=== PATIENT | male | born 1955 | race Caucasian/White ===

== ENCOUNTER 2016-12-24 14:19 | Emergency (ER) | payer BC, OTHER ==
[~2016-12-24] VITALS: Ht 182.9 cm; Wt 65.4 kg
[~2016-12-24 14:19] MED LIST: ASPEC81 PO; CLOP1TAB5 PO
[2016-12-24 14:22] VITALS: BP 165/98; TEMP 36.3; Ht 182.9 cm; Wt 65.4 kg
[2016-12-24] MEDS ORDERED: ASPI-435 PO (14:44)
[2016-12-24] MEDS ORDERED: HYDROCODONE/ACETAMOPHEN 5/325MG TAB PO STA (15:12)
[2016-12-24] MEDS ORDERED: CYCLOBENZAPRINE HCL 10 MG TAB PO STA (15:12)
[2016-12-24] MEDS ORDERED: CYCL10TA6 PO (15:15)
[2016-12-24] MEDS ORDERED: HYDR-5688 PO (15:15)
--- NOTE | 2016-12-24 15:18 | EMERGENCY ROOM VISIT NOTE ---
History First contact with patient: 14:44 Chief Complaint: SHOULDER PAIN Stated Complaint: RIGHT SHOULDER PAIN History of Present Illness The patient is a 61 year old male who presents to the Emergency Room via private vehicle with complaints of "right shoulder pain". The patient states that Friday he was walking his dog, and there was a leash/cable attached to the dog which she was holding in his head. The dog jerked forward, causing a pulling sensation in the right shoulder/trapezius region. He notes sharp pain at that point when his arm was pulled, but is progressively worsened. He rates the pain as an 8/10 and sharp in nature. This is worse with flexion and abduction of the right shoulder. He rates his pain as a 6/10. He denies any chest pain, shortness of breath. Review of Systems A complete 6-point Review of Systems was discussed with the patient, with pertinent positives and negatives listed in the History of Present Illness. All remaining Review of Systems questions can be considered negative unless otherwise specified. Past Medical/Surgical History Medical Problems: (1) Acute myocardial infarction (2) arterial stent placement (3) Back strain Family History Cancer Heart disease Hypertension Lung disease Social History Smoking Status: Current Every Day Smoker Marital Status: single Housing Status: unknown Occupation Status: employed Current/Historical Medications Scheduled Aspirin (Aspirin 81), 81 MG PO DAILY Clopidogrel Bisulfate (Plavix), 75 MG PO DAILY Cyclobenzaprine Hcl (Flexeril), 10 MG PO TID Scheduled PRN Hydrocodone/Acetaminophen 5MG/325MG ([place] 5MG/325MG), 1 TABLET PO Q4H PRN for Pain Allergies Coded Allergies: No Known Allergies (Unverified , 12/24/16) Physical Exam Vital Signs Date Time Temp Pulse Resp B/P Pulse Ox O2 Delivery O2 Flow Rate FiO2 12/24/16 15:35 77 18 98 12/24/16 14:22 36.3 75 18 165/98 99 Room Air Physical Exam VITAL SIGNS - Vital signs and nursing notes were reviewed. Afebrile, hypertensive at 165/98, non-tachycardic and is saturating well on room air 99%. GENERAL -61-year-old male appearing his stated age who is in no acute distress. Communicates well with provider and answers questions appropriately. SKIN - Without rashes. No petechial rashes. HEAD - NC/AT. NECK: There is tenderness to palpation overlying the right superior trapezius muscle extending towards the right shoulder. There is no bony tenderness or C- spine tenderness. CARDIAC - RRR with S1/S2. No murmur, rubs, or gallops appreciated. Lungs: CTA bilaterally. EXTREMITIES - No clubbing or peripheral cyanosis. No pretibial edema present. He is neurovascularly intact in the right upper extremity. +5/5 strength noted in UE/LE bilaterally. There is tenderness to palpation overlying the superior trapezius muscle, and with rage of motion of the right shoulder. With the patient pressing the right hand out in front of his chest against my resistance there is increased tenderness in the right superior trapezius muscle. Medical Decision & Procedures Medications Administered Medications (Trade) Dose Ordered Sig/Tres Route Start Time Stop Time Status Last Admin Dose Admin Cyclobenzaprine HCl (Flexeril Tab) 10 mg NOW STAT PO 12/24/16 15:12 12/24/16 15:14 DC 12/24/16 15:30 10 MG Acetaminophen/ Hydrocodone Bitart ([place] 5/325 Tab) 1 tab NOW STAT PO 12/24/16 15:12 12/24/16 15:14 DC 12/24/16 15:30 1 TAB Medical Decision Patient was seen and evaluated as above. After obtaining a thorough history and physical examination it was apparent that the patient was experiencing a muscle strain of the superior trapezius. It is worse with movement, and tender to palpation. There is no chest pain or shortness of breath. I do not suspect any cardiac or pulmonary causes of this pain today. He was educated upon management, was given Flexeril and [place] for his pain. He was educated upon worrisome symptoms which to return, had questions prior to discharge, and was discharged home in good condition. He is to follow up regarding today's visit with his family doctor, and notes he does not have one therefore I instructed him to call the number on the back of his insurance card first thing tomorrow morning to schedule follow-up. He indicated he felt comfortable doing so. In the evaluation treatment this patient following differential diagnoses were entertained: Muscle strain, spasm, CT, PE, among others. [place] Drug Monitoring Program Search Results: patient reviewed within database, no issues identified Impression Primary Impression: Trapezius muscle strain Departure Information Dispostion Home / Self-Care Condition GOOD Prescriptions Cyclobenzaprine Hcl (FLEXERIL) 10 Mg Tab 10 MG PO TID, #10 TAB Prov: Quinton Butcher PA-C 12/24/16 Hydrocodone/Acetaminophen 5MG/325MG ([place] 5MG/325MG) Tab 1 TABLET PO Q4H Y for Pain, #15 TAB For Initial Treatment Prov: Quinton Butcher PA-C 12/24/16 Referrals No Doctor, Assigned (PCP) Patient Instructions My [facility] [address] Additional Instructions You have been treated in the Emergency Department for right neck/shoulder pain. You have received pain medicine in the emergency department which impairs your ability to operate a vehicle. It is illegal for you to drive after receiving these medicines. You have been prescribed [place] to be used for pain control. This is a narcotic medication. You cannot drive or consume alcohol while on this medicine. This medicine should only be used for pain that cannot be controlled with over-the- counter pain medicines. DO NOT TAKE WITH TYLENOL!! Do not consume alcohol with this medication. You have been prescribed Flexeril (cyclobenzaprine) 1 tabs orally, three times per day. Do NOT exceed 30 mg (6 tabs) per day. Take your first dose at bedtime as it can make you drowsy. Always take all medications as prescribed. Do not take alcohol with this medication. For pain control, you can use the following atmy-oyd-dtzyptj medicines (if >12 yo): - Regular strength (325mg/tab) Tylenol (acetaminophen) 2 tabs every 4-6 hours as needed. Do not exceed 12 tablets in a 24 hour period. Avoid taking more than 3 grams (3000 mg) of Tylenol per day. This includes any other sources of acetaminophen you may take on a regular basis. Do not take this with [place]. - Regular strength (200 mg/tab) Advil (ibuprofen) 1-2 tabs every 4-6 hours as needed. Do not exceed a dose of 3200 mg per day. If this is a recent injury (<24 hrs), ice can be applied to the area of pain for the first 3 days to help decrease pain and inflammation. As we discussed please call the number on the back of your insurance card first thing tomorrow morning to identify family doctors in the area. Please schedule appointment as soon as possible. If she experienced difficulty with this please call the emergency department piano case and bench assembler at [phone]. Thank you Return to the Emergency Department if your current symptoms worsen despite treatment course outlined above, or if you develop any of the following symptoms : intractable pain despite aforementioned treatment course or new onset of numbness or tingling of the arm. Please return to the emergency department with any new/concerning symptoms.
[2016-12-24 15:35] VITALS: PULSE 77; O2SAT 98
== END 2016-12-24 15:38 | disposition home or self-care (01) ==
LOC: C.EDB 14:21 → C.EDD 15:38
DX: S46.811A Strain of other muscles, fascia and tendons at shoulder and upper arm level, right arm, initial encounter (principal); X50.9XXA Other and unspecified overexertion or strenuous movements or postures, initial encounter; I21.3 ST elevation (STEMI) myocardial infarction of unspecified site; Z82.49 Family history of ischemic heart disease and other diseases of the circulatory system; F17.200 Nicotine dependence, unspecified, uncomplicated; Z79.82 Long term (current) use of aspirin

== ENCOUNTER 2017-01-07 21:29 | Emergency (ER) | payer BC ==
[~2017-01-07] VITALS: Ht 185.4 cm; Wt 63.4 kg
[~2017-01-07 21:29] MED LIST changes: -ASPEC81 PO; +ASPI-435 PO; +HYDR-5688 PO
[2017-01-07 21:32] VITALS: Ht 185.4 cm; Wt 63.4 kg
[2017-01-07] MEDS ORDERED: FLEXERIL HOME PACK 10 MG VIAL PO ONE (22:45)
[2017-01-07] MEDS ORDERED: TRAMADOL HCL 50 MG HOME PACK PO ONE (22:45)
[2017-01-07] MEDS ORDERED: PRED50TA PO (22:53)
[2017-01-07] MEDS ORDERED: TRAM-10 PO (22:53)
[2017-01-07] MEDS ORDERED: CYCL10TA6 PO (22:53)
--- NOTE | 2017-01-07 22:53 | EMERGENCY ROOM VISIT NOTE ---
ED Visit Note First contact with patient: 21:40 Chief Complaint: RIGHT Shoulder/Neck Pain History of Present Illness: Patient is a 61-year-old male who presents to the emergency Department for evaluation of his RIGHT shoulder and neck pain. He reports he was seen in this facility for similar symptoms several days ago. He reports feeling much better and complete resolve of symptoms with the medications he was provided. He had been doing well until he attempted to sleep on his Left Side Last Evening. He Awoke with Pain to the Base of the RIGHT-Sided Neck and Shoulder. He Denies Any Trauma to the Area. He Denies Any Numbness or Tingling into the Distal Extremity. He Denies Any Headaches, Dizziness, Lightheadedness, Chest Pain, Palpitations, Pleuritic Pain, Nausea, or Vomiting. He Rates His Current Discomfort As an 8/10. He Is Tried Nothing Xupw-Jlv-Rvzqsix for Symptoms. Medications: Reviewed and discussed with the patient. Allergies: No known allergies. PMH: No pertinent past medical history. SHx: Patient is a 61-year-old male who lives locally. ROS: All pertinent positive and negative review of systems are appropriately documented in the History of Present Illness. Physical Exam: VITAL SIGNS - Vital signs and nursing notes were reviewed. GENERAL - 61-year-old male appearing his stated age and in noticeable discomfort throughout the exam. NECK - FROM of the cervical spine. No spinous process or paraspinal muscle tenderness to palpation. No nuchal rigidity. LUNGS - Chest wall symmetric without accessory muscle use, intercostals retractions, or central cyanosis. Normal vesicular breath sounds CTA B/L. No wheezes, rales, or rhonchi appreciated. CARDIAC - RRR with S1/S2. No murmur, rubs, or gallops appreciated. MUSCULOSKELETAL - decreased active range of motion of the RIGHT shoulder second or to discomfort. Palpable muscle spasm and reproduce will pay noted to the superior portion of the RIGHT trapezius muscle. +/5 intelligence group supervisor strength appreciated bilaterally. NEUROLOGIC - SENSORY: Spinothalamic tract was found to be intact with ability to discriminate sharp versus dull sensation at the level of the RIGHT side of the neck down to the fingertips. No sensory deficits of the dorsal column were appreciated utilizing light touch for evaluation. VASCULAR - Capillary refill was brisk. +3/5 radial pulse palpated. ED Course: Patient was seen and evaluated by myself. Previous emergency department visit notes were reviewed. Patient was educated on fkpd-osq-tmpcjdu medications as well as follow closely with his primary care provider from today's visit. He was provided a home pack for Flexeril and Ultram. He was provided initial dose of prednisone in the emergency department. The patient was encouraged to follow -up with his primary care provider. He was educated on worrisome symptoms for return visit to the emergency department. Patient discharged home in good condition. In the evaluation and treatment of this patient, the following differential diagnoses were considered: Musculoskeletal Strain, Discitis, Cervical Spine Fracture, Cervical Spine Dislocation, Cervical Spine Subluxation, Cervical Spondylosis, Fibromyalgia, Osteoarthritis, Polymyalgia Rheumatica, Psychogenic Pain Disorder, Tumor of Soft Tissue or Spine. Impression: RIGHT Shoulder/Neck Pain - Superior Trapezius Muscle Strain Discharge Instructions: You have been seen in the emergency department today for your neck pain. You have been prescribed Ultram to be used for pain control. You cannot drive or consume alcohol while on this medicine. This medicine should only be used for pain that cannot be controlled with xlwj-kwe-ybosjsj pain medicines. You have been prescribed Flexeril (cyclobenzaprine) 1-2 tabs orally, three times per day. Do NOT exceed 30 mg (6 tabs) per day. Take your first dose at bedtime as it can make you drowsy. Always take all medications as prescribed. You have been prescribed Prednisone 50 mg to be taken orally once a day for the next 4 days. This is an anti-inflammatory medicine to be used to help minimize your symptoms. You should take the COMPLETE course of the medication. For pain control, you can use the following inyv-zqt-foofrvi medicines (if >12 yo): - Regular strength (325mg/tab) Tylenol (acetaminophen) 2 tabs every 4-6 hours as needed. Do not exceed 12 tablets in a 24 hour period. Avoid taking more than 4 grams (4000 mg) of Tylenol per day. This includes any other sources of acetaminophen you may take on a regular basis. - Regular strength (200 mg/tab) Advil (ibuprofen) 1-2 tabs every 4-6 hours as needed. Do not exceed a dose of 3200 mg per day. Follow-up with your primary care provider from today's visit. Return for any changing or worsening symptoms. Problem List Medical Problems: (1) Acute myocardial infarction Status: Resolved (2) arterial stent placement Status: Resolved (3) Back strain Status: Resolved Current/Historical Medications Scheduled Aspirin (Aspirin 81), 81 MG PO DAILY Clopidogrel Bisulfate (Plavix), 75 MG PO DAILY Cyclobenzaprine Hcl (Flexeril), 10 MG PO TID Prednisone (Prednisone), 50 MG PO DAILY Scheduled PRN Tramadol (Ultram), 1-2 TAB PO Q4H PRN for Pain Allergies Coded Allergies: No Known Allergies (Unverified , 01/07/17) Vital Signs Date Time Temp Pulse Resp B/P Pulse Ox O2 Delivery O2 Flow Rate FiO2 01/07/17 23:01 68 16 109/86 100 01/07/17 21:32 79 19 103/67 97 Medications Administered Medications (Trade) Dose Ordered Sig/Tres Route Start Time Stop Time Status Last Admin Dose Admin Cyclobenzaprine HCl (FLEXERIL 10MG Home Pack) 1 homepack UD ONCE PO 01/07/17 22:45 01/07/17 22:46 DC 01/07/17 22:58 1 HOMEPACK Tramadol HCl (Ultram Home Pack) 1 homepack UD ONCE PO 01/07/17 22:45 01/07/17 22:46 DC 01/07/17 22:58 1 HOMEPACK Prednisone (PredniSONE TAB) 60 mg NOW STAT PO 01/07/17 22:34 01/07/17 22:36 DC 01/07/17 22:57 60 MG Departure Information Impression Primary Impression: Trapezius muscle strain Dispostion Home / Self-Care Condition GOOD Prescriptions Prednisone (Prednisone) 50 Mg Tab 50 MG PO DAILY for 4 Days, #4 TAB Prov: Drew Beatty PA-C 01/07/17 Cyclobenzaprine Hcl (FLEXERIL) 10 Mg Tab 10 MG PO TID for 5 Days, #15 TAB Prov: Drew Beatty PA-C 01/07/17 Tramadol (Ultram) 50 Mg Tab 1-2 TAB PO Q4H Y for Pain, #14 TAB For Initial Treatment Prov: Drew Beatty PA-C 01/07/17 Referrals No Doctor, Assigned (PCP) Patient Instructions My [facility] Additional Instructions You have been seen in the emergency department today for your neck pain. You have been prescribed Ultram to be used for pain control. You cannot drive or consume alcohol while on this medicine. This medicine should only be used for pain that cannot be controlled with viow-ans-bjwaluw pain medicines. You have been prescribed Flexeril (cyclobenzaprine) 1-2 tabs orally, three times per day. Do NOT exceed 30 mg (6 tabs) per day. Take your first dose at bedtime as it can make you drowsy. Always take all medications as prescribed. You have been prescribed Prednisone 50 mg to be taken orally once a day for the next 4 days. This is an anti-inflammatory medicine to be used to help minimize your symptoms. You should take the COMPLETE course of the medication. For pain control, you can use the following nsoq-mlp-hnjhcod medicines (if >12 yo): - Regular strength (325mg/tab) Tylenol (acetaminophen) 2 tabs every 4-6 hours as needed. Do not exceed 12 tablets in a 24 hour period. Avoid taking more than 4 grams (4000 mg) of Tylenol per day. This includes any other sources of acetaminophen you may take on a regular basis. - Regular strength (200 mg/tab) Advil (ibuprofen) 1-2 tabs every 4-6 hours as needed. Do not exceed a dose of 3200 mg per day. Follow-up with your primary care provider from today's visit. Return for any changing or worsening symptoms. Problem Qualifiers Primary Impression: Trapezius muscle strain Encounter type: initial encounter Laterality: right Qualified Codes: S46.811A - Strain of other muscles, fascia and tendons at shoulder and upper arm level, right arm, initial encounter
[2017-01-07 23:01] VITALS: BP 109/86; PULSE 68; O2SAT 100
== END 2017-01-07 23:02 | disposition home or self-care (01) ==
LOC: C.EDB 21:29 → C.EDD 23:02
DX: S46.811A Strain of other muscles, fascia and tendons at shoulder and upper arm level, right arm, initial encounter (principal); X58.XXXA Exposure to other specified factors, initial encounter; I25.2 Old myocardial infarction; Z79.82 Long term (current) use of aspirin

== ENCOUNTER → 2017-04-30 | Outpatient (CLI) | payer BC ==
[~2017-04-30] MED LIST changes: -HYDR-5688 PO; +TRAM-10 PO
[2017-04-30 12:39] LABS: BLOOD UREA NITROGEN 35 mg/dl (7-18); BUN/CREATININE RATIO 18.6 (10-20)
== END | disposition home or self-care (01) ==
LOC: C.LAB 10:58
PROVIDERS: ATTEND Surgery Vascular Surgery
DX: I73.9 Peripheral vascular disease, unspecified (principal)

== ENCOUNTER 2019-02-02 23:51 | Inpatient (IN) ==
--- OUTSIDE RECORDS SUMMARY | 2019-02-02 23:54 | External Medical Summary | Continuity of Care Document ---
:1955 Author Name Uriel Spencer Address Unavailable Unavailable , Care Team Providers Name Role Phone Pulmonary Function Unavailable [email or web address] PCP, UNKNOWN Unavailable Unavailable Problems Active medical history not documented Allergies and Adverse Reactions Allergy history not documented Medications Medications not documented Procedures Procedures not documented Immunizations Immunizations not documented Plan of Treatment Planned Observations Planned Goals not documented Results No Known Results Results not documented Encounters Appointment; Pulmonary Function, Testing [facility] [place] 17-Aug-2009 14:4 5 Encounter Diagnosis: Problem not documented
[2019-02-03] MEDS ORDERED: MAGNESIUM SULFATE / D5W 1 GM/100 ML BAG IV ONE (00:14)
[2019-02-03] MEDS ORDERED: SODIUM CHLORIDE 0.9% 1000ML 1,000 ML IV ONE (00:14)
[2019-02-03] MEDS ORDERED: ALBUT/IPRATROP 3MG/0.5MG NEB 3 ML VIAL NEB ONE ×2 (00:14→02:08)
[2019-02-03] MEDS ORDERED: methylPREDNISolone 80 MG in SYRINGE 0 ML IV STA (00:14)
[2019-02-03 00:55] LABS: Basophils # (auto) 0.01 K/uL (0-0.2); Basophils % (auto) 0.1 %; Hematocrit (blood only) 42.6 % (42-52); Hemoglobin 13.9 g/dL (14.0-18.0); Immature Granulocytes # (auto) 0.02 K/uL (0.00-0.02); Immature Granulocytes % (auto) 0.2 %; Lymphocytes # (auto) 1.02 K/uL (1.2-3.4); Lymphocytes % (auto) 10.4 %; Mean Corpuscular Hgb Conc 32.6 g/dL (32-36); Mean Corpuscular Volume 95.7 fL (80-100); Mean Platelet Volume 9.2 fL (7.4-10.4); Monocytes # (auto) 0.74 K/uL (0.11-0.59); Monocytes % (auto) 7.5 %; Neutrophils # (auto) 7.76 K/uL (1.4-6.5); Neutrophils % (auto) 78.8 %; Platelet Count 175 K/uL (130-400); RDW Coefficient of Variation 15.4 % (11.5-14.5); RDW Standard Deviation 54.1 fL (36.4-46.3); Red Blood Count 4.45 M/uL (4.7-6.1); White Blood Count 9.85 K/uL (4.8-10.8)
[2019-02-03 01:14] LABS: Alanine Aminotransferase 15 U/L (12-78); Albumin Level 3.5 gm/dl (3.4-5.0); Aspartate Aminotransferase 12 U/L (15-37); BUN Creatinine Ratio 16.2 (10-20); Blood Urea Nitrogen 39 mg/dl (7-18); Calcium 8.6 mg/dl (8.5-10.1); Carbon Dioxide 27 mmol/L (21-32); Chloride 110 mmol/L (98-107); Creatinine Clr Calc Pharmacy 28.7 ml/min; Est GFR (African American) 31.8; Est GFR (Non-African American) 27.5; Glucose 81 mg/dl (70-99); Potassium 5.1 mmol/L (3.5-5.1); Sodium 140 mmol/L (136-145)
[2019-02-03 01:19] LABS: Albumin Globulin Ratio 0.9 (0.9-2); Alkaline Phosphatase 112 U/L (45-117); Bilirubin,Total 0.4 mg/dl (0.2-1); Globulin 3.9 gm/dl (2.5-4.0); NT Pro B Type Natriuretic Pept 16198 pg/ml (0-900); Total Protein 7.4 gm/dl (6.4-8.2); Troponin I < 0.015 ng/ml (0-0.045)
[2019-02-03] MEDS ORDERED: HydrALAZINE HCL 20 MG/ML VIAL IV STA ×2 (01:27→15:31)
[2019-02-03] MEDS ORDERED: LEVOFLOXACIN/D5W 750 MG/150 ML BAG IV STA (01:31)
--- NOTE | 2019-02-03 04:34 | Emergency Department Note ---
Entered by Marlon Stubbs acting as a scribe for Rosi Piña DO History of Present Illness General Chief complaint: Respiratory Problems Stated complaint: TROUBLE BREATHING Time Seen by Provider: 02/03/19 00:09 Source: patient History of Present Illness Onset (ago): day(s) (yesterday) Location: chest Severity: similar to prior episodes Pain Consistency: + constant Quality: + other (respiratory difficulty) Associated symptoms: + other (Positive for chest congestion. Negative for cough and fever.) The patient is a 63 year old male who presents to the emergency department with complaints of constant respiratory difficulty beginning yesterday. The patient states that his chest feels congested, but he notes that he has not had a cough. He also denies any fever. He notes that he has a history of pneumonia and reports that his current symptoms feel similar. The patient states that he also has a history of COPD. He notes that he does not use an inhaler and he reports that he is a current smoker. Patient states he has previously been admitted to the hospital when he had pneumonia, no other admissions for COPD exacerbation. No prior intubations. Patient does not follow with a functional support analyst. Denies any recent travel or change in activity. States his appetite has been decreased today secondary to not feeling well. Patient states he is coughing more frequently but is not producing any increased sputum. Patient states subjective fevers and chills. 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 and A total of 10 systems reviewed and were otherwise negative Physical Exam Vital Signs Vital Signs - 24 hr 02/03/19 02:15 02/03/19 02:24 02/03/19 03:00 Pulse Rate 113 H Pulse Rate [Right Finger] 104 H 105 H Pulse Rate from SpO2 Sensor 114 H Respiratory Rate 20 15 Respiratory Effort / Characteristics Spontaneous Short of Breath SOB on Exertion Blood Pressure 156/88 H Blood Pressure [Right Arm] 174/107 H Blood Pressure Mean 110 Blood Pressure Mean [Right Arm] 129 Pulse Oximetry 93 92 100 Oxygen Delivery Method Room Air Room Air 02/03/19 03:15 02/03/19 03:30 02/03/19 03:31 Pulse Rate 120 H Pulse Rate [Right Finger] Pulse Rate from SpO2 Sensor 122 H 118 H 116 H Respiratory Rate 22 20 15 Respiratory Effort / Characteristics Blood Pressure 155/103 H 148/97 H Blood Pressure [Right Arm] Blood Pressure Mean 120 114 Blood Pressure Mean [Right Arm] Pulse Oximetry 100 99 100 Oxygen Delivery Method 02/03/19 03:45 02/03/19 04:00 02/03/19 04:01 Pulse Rate Pulse Rate [Right Finger] Pulse Rate from SpO2 Sensor 121 H 118 H 119 H Respiratory Rate 23 18 21 Respiratory Effort / Characteristics Blood Pressure 143/97 H 158/96 H Blood Pressure [Right Arm] Blood Pressure Mean 112 116 Blood Pressure Mean [Right Arm] Pulse Oximetry 96 94 94 Oxygen Delivery Method 02/03/19 04:15 Pulse Rate Pulse Rate [Right Finger] Pulse Rate from SpO2 Sensor 114 H Respiratory Rate 17 Respiratory Effort / Characteristics Blood Pressure 129/92 Blood Pressure [Right Arm] Blood Pressure Mean 104 Blood Pressure Mean [Right Arm] Pulse Oximetry 92 Oxygen Delivery Method GENERAL: alert, well appearing, well nourished, no distress, non-toxic EYE EXAM: normal conjunctiva, PERRL and EOM's grossly intact OROPHARYNX: no exudate, no erythema, lips, buccal mucosa, and tongue normal and mucous membranes are dry, poor dentition. NECK: supple, no nuchal rigidity, no adenopathy, non-tender LUNGS: Supraclavicular retractions, bilateral wheezing, increased work of breathing. HEART: no murmurs, S1 normal and S2 normal ABDOMEN: abdomen soft, non-tender, normo-active bowel sounds, no masses, no rebound or guarding. BACK: Back is symmetrical on inspection and there is no deformity, no midline tenderness, no CVA tenderness. SKIN: no rashes and no bruising UPPER EXTREMITIES: upper extremities are grossly normal. FROM, nml pulses b/l. LOWER EXTREMITIES: No pitting edema. FROM, nml pulses b/l. NEURO EXAM: Normal sensorium, cranial nerves II-XII grossly intact, normal speech, no gross weakness of arms, no gross weakness of legs. Course 0012: The patient was evaluated in room A11. A complete history and physical exam was performed. 0202: I reevaluated and updated the patient. He states that he feels better. He still has significant bilateral expiratory wheezing. His pulse oxygen is 92%. 0322: I rechecked the patient. He is still wheezing bilaterally. He states that he is feeling better. 0411: Patient still with bilateral wheezing after 2 continuous hour-long nebulizer treatments. Patient with decreased work of breathing, and states he does feel mildly improved. Patient states he is tired, and I did discuss with him possible use of BiPAP. Patient states he would like to hold off at this time as he does feel some improvement following the nebulizer treatments. Patient denies ever being informed he had any kidney problems. 0433: Upon reevaluation, the patient is stable. I discussed the findings and the treatment plan with the patient. He expresses agreement and understanding. I spoke with Dr. Harrison of the [facility]. The patient will be evaluated for further management. He would also like CT chest added. Consultations Consultation #1: I reviewed the patient's case with Dr. Harrison - Hospitalist, [facility]. He will evaluate the patient for further management. Administered Medications Albuterol (Duoneb) 3 ml NEB QIDR JOVANY Stop: 03/05/19 07:59 Last Admin: 02/03/19 19:44 Dose: 3 ml Documented by: [id number] Admin: 02/03/19 15:19 Dose: 3 ml Documented by: [id number] Admin: 02/03/19 11:05 Dose: 3 ml Documented by: [id number] Admin: 02/03/19 07:19 Dose: 3 ml Documented by: [id number] Aspirin (Ecotrin Ectab) 81 mg PO DAILY [facility] Stop: 03/05/19 08:59 Last Admin: 02/03/19 08:38 Dose: 81 mg Documented by: [id number] Clopidogrel Bisulfate (Plavix) 75 mg PO DAILY [facility] Stop: 03/05/19 08:59 Last Admin: 02/03/19 08:38 Dose: 75 mg Documented by: [id number] Heparin Sodium (Porcine) (Heparin Sodium (Porcine)) 5,000 units SQ Q8 JOVANY Stop: 03/05/19 13:59 Last Admin: 02/03/19 20:57 Dose: 5,000 units Documented by: [id number] Cosigned by: [id number] Admin: 02/03/19 13:18 Dose: 5,000 units Documented by: [id number] Cosigned by: [id number] Methylprednisolone 60 mg/ (Syringe) 0.96 mls @ 1.5 mls/min IV Q6H JOVANY Stop: 03/05/19 07:59 Last Admin: 02/04/19 01:39 Dose: 1.5 mls/min Documented by: [id number] Admin: 02/03/19 20:57 Dose: 1.5 mls/min Documented by: [id number] Admin: 02/03/19 13:18 Dose: 1.5 mls/min Documented by: [id number] Admin: 02/03/19 08:38 Dose: 1.5 mls/min Documented by: [id number] Discontinued Medications Albuterol (Duoneb) 12 ml NEB ONE ONE Stop: 02/03/19 00:15 Last Admin: 02/03/19 00:32 Dose: 12 ml Documented by: [id number] Albuterol (Duoneb) 12 ml NEB ONE ONE Stop: 02/03/19 02:09 Last Admin: 02/03/19 02:24 Dose: 12 ml Documented by: [id number] Amlodipine Besylate (Norvasc) 5 mg PO NOW ONE Stop: 02/03/19 15:34 Last Admin: 02/03/19 16:05 Dose: 5 mg Documented by: [id number] Hydralazine HCl (Hydralazine Hcl) 10 mg IV NOW STA Stop: 02/03/19 01:28 Last Admin: 02/03/19 01:32 Dose: 10 mg Documented by: [id number] Hydralazine HCl (Hydralazine Hcl) 10 mg IV NOW STA Stop: 02/03/19 15:32 Last Admin: 02/03/19 16:05 Dose: 10 mg Documented by: [id number] Magnesium Sulfate/Dextrose (Magnesium Sulfate / D5w) 1 gm in 100 mls @ 100 mls/hr IV ONE ONE Stop: 02/03/19 01:13 Last Infusion: 02/03/19 01:47 Dose: 0 mls/hr Documented by: [id number] Admin: 02/03/19 00:36 Dose: 100 mls/hr Documented by: [id number] Methylprednisolone 80 mg/ (Syringe) 1.28 mls @ 1.5 mls/min IV NOW STA Stop: 02/03/19 00:15 Last Admin: 02/03/19 00:36 Dose: Not Given Documented by: [id number] Sodium Chloride (Nss 1000ml) 1,000 mls @ 999 mls/hr IV .Q1H1M ONE Stop: 02/03/19 01:14 Last Infusion: 02/03/19 01:35 Dose: 0 mls/hr Documented by: [id number] Admin: 02/03/19 00:36 Dose: 999 mls/hr Documented by: [id number] Levofloxacin/Dextrose (Levaquin/D5w) 750 mg in 150 mls @ 100 mls/hr IV NOW STA Stop: 02/03/19 03:00 Last Infusion: 02/03/19 03:16 Dose: 0 mls/hr Documented by: [id number] Admin: 02/03/19 01:47 Dose: 100 mls/hr Documented by: [id number] Dextrose/Sodium Chloride (D5w And Nss) 1,000 mls @ 125 mls/hr IV .Q8H JOVANY Stop: 02/03/19 23:29 Last Infusion: 02/04/19 00:55 Dose: 0 mls/hr Documented by: [id number] Admin: 02/03/19 16:07 Dose: 125 mls/hr Documented by: [id number] Infusion: 02/03/19 16:07 Dose: 125 mls/hr Documented by: [id number] Admin: 02/03/19 08:21 Dose: 125 mls/hr Documented by: [id number] Methylprednisolone (Solumedrol) Confirm Administered Dose 80 mg .ROUTE .STK-MED ONE Stop: 02/03/19 00:33 Last Admin: 02/03/19 00:36 Dose: 80 mg Documented by: [id number] Medical Decision Making Differential Diagnosis Differential diagnosis: Etiologies such as infections, reactive airway disease, COPD, pneumonia, pleural effusion, pulmonary edema, ARDS, pneumothorax, CHF, cardiac ischemia, cardiac tamponade, dysrhythmia, anemia, pulmonary embolism, musculoskeletal, gastrointestinal process, as well as others were entertained. Medical Records Attestation: I reviewed the patient's medical records. Home Medications Current Medication List: was personally reviewed by me Laboratory Data Attestation: I reviewed the patient's lab results. Result diagrams: 02/03/19 00:08 02/03/19 00:08 Lab Results 02/03/19 02/03/19 Range/Units 00:08 00:08 WBC 9.85 (4.8-10.8) K/uL RBC 4.45 L (4.7-6.1) M/uL Hgb 13.9 L (14.0-18.0) g/dL Hct 42.6 (42-52) % MCV 95.7 (80-100) fL MCH 31.2 (25-34) pg MCHC 32.6 (32-36) g/dL RDW Std Deviation 54.1 H (36.4-46.3) fL RDW Coeff of Contreras 15.4 H (11.5-14.5) % Plt Count 175 (130-400) K/uL MPV 9.2 (7.4-10.4) fL Immature Gran % (Auto) 0.2 % Neut % (Auto) 78.8 % Lymph % (Auto) 10.4 % [place] % (Auto) 7.5 % Eos % (Auto) 3.0 % Baso % (Auto) 0.1 % Immature Gran # (Auto) 0.02 (0.00-0.02) K/uL Neut # (Auto) 7.76 H (1.4-6.5) K/uL Lymph # (Auto) 1.02 L (1.2-3.4) K/uL [place] # (Auto) 0.74 H (0.11-0.59) K/uL Eos # (Auto) 0.30 (0-0.5) K/uL Baso # (Auto) 0.01 (0-0.2) K/uL Sodium 140 (136-145) mmol/L Potassium 5.1 (3.5-5.1) mmol/L Chloride 110 H (98-107) mmol/L Carbon Dioxide 27 (21-32) mmol/L Anion Gap 3.0 (3-11) BUN 39 H (7-18) mg/dl Creatinine 2.40 H (0.6-1.4) mg/dl Est Cr Clr Drug Dosing 28.7 ml/min Est GFR ( Amer) 31.8 Est GFR (Non-Af Amer) 27.5 BUN/Creatinine Ratio 16.2 (10-20) Glucose 81 (70-99) mg/dl Calcium 8.6 (8.5-10.1) mg/dl Magnesium 2.0 (1.8-2.4) mg/dl Total Bilirubin 0.4 (0.2-1) mg/dl AST 12 L (15-37) U/L ALT 15 (12-78) U/L Alkaline Phosphatase 112 (45-117) U/L Troponin I < 0.015 (0-0.045) ng/ml NT-Pro-B Natriuret Pep 68274 H (0-900) pg/ml Total Protein 7.4 (6.4-8.2) gm/dl Albumin 3.5 (3.4-5.0) gm/dl Globulin 3.9 (2.5-4.0) gm/dl Albumin/Globulin Ratio 0.9 (0.9-2) Imaging Data Attestation: I personally reviewed and interpreted this imaging study as follows: My Impression: SINGLE VIEW CHEST X-RAY: Hyperinflated. No cardiomegaly. No pleural effusions. No acute pulmonary edema. Increased interstitial markings at the left base. ECG Data Attestation: I personally reviewed and interpreted this ECG as follows: Indication: SOB/dyspnea Rate (beats per minute): 84 Rhythm: sinus rhythm Findings: no PAC, no PVC and no acute ischemic change Additional Comments: Normal axis, normal intervals. Blood Pressure Blood Pressure Findings: Elevated blood pressure Blood Pressure Disposition: further management by hospitalist ROBERT Narrative Patient here ill-appearing with increased work of breathing and bilateral wheezing. Patient had 2 continuous nebulizer treatments which resulted in increased air movement and decreased work of breathing, however patient still had bilateral wheezing. Patient not hypoxic. Patient with known history of COPD and not currently being treated as an outpatient. Patient does still smoke. Concern for COPD exacerbation versus early pneumonia on chest x-ray, no evidence of bacteremia/sepsis. Patient's other labs reassuring. I do not suspect acute cardiac pathology. No evidence of congestive heart failure despite elevated BNP. I feel the elevated BNP may be secondary to renal dysfunction as his creatinine is higher than baseline. Patient denies any prior knowledge of chronic kidney disease. Patient started on steroids, IV antibiotics, and was cautiously hydrated. I did discuss all results with patient at bedside and he verbalized understanding. Patient in agreement with plan for additional evaluation and management by the hospitalist. Upon discussion with the hospitalist, they also recommended CT chest for additional information. Impression & Plan Pneumonia, COPD exacerbation, Acute kidney injury Discharge Plan Visit Data *Final* Discharge Date/Time: 02/03/19 05:35 Chief Complaint: Respiratory Problems Stated Complaint: TROUBLE BREATHING ED Provider: Rosi Piña Discharge Problem: Pneumonia, COPD exacerbation, Acute kidney injury Patient Disposition: Admitted As Inpatient Discharge Instructions Interventions: ED Discharge Assessment Last Done: 02/03/19 05:35 Discharge Problem: Pneumonia Qualifiers: Pneumonia type: due to unspecified organism Laterality: left Lung location: lower lobe of lung Qualified Code(s): J18.1 - Lobar pneumonia, unspecified organism The scribe's documentation has been prepared under my direction and personally reviewed by me in its entirety. I confirm that the note above accurately reflects all work, treatment, procedures, and medical decision making performed by me.
--- NOTE | 2019-02-03 05:45 | History & Physical Report ---
Date of Service February 03, 2019 Assessment & Plan (1) COPD exacerbation: 63 y/o M Hx PVD, advanced COPD, medical noncompliance, who continues to smoke cigarettes. Presents with progressive SOB, wheezing and a cough. He denies any fevers or CP. He was hypoxic on arrival to the ER requiring 02 to maintain an adequate saturation. The pt is a poor historian and displays little knowledge or interest in his own medical condition. Initial labs demonstrated worsening renal function. A CXR shows hilar prominence vs R infiltrate. 1) COPD exacerbation - abnormal CXR, possible PNM - the pt is assigned to telemetry - provided with duonebs/albuterol, Solumedrol, antibiotics, 02 protocol. Due to his abnormal CXR and high CA risk, he will proceed to CT scan. The pt does not comply with any related meds. 2) MARY GRACE - likely imposed on CKD III as his last creat on record was 1.9. IVF provided - trend BMP AM 3) PVD - edema of R leg - we will start with a venous doppler. He may need arterial studies, however, this can likely be done in the outpt setting as he does not have clinical ischemia. Cont ASA, Plavix. 4) Smoker - shows absolutely no interest in quitting. Full code - heparin prophylaxis - total time for this admit icnluding review of labs, meds, imaging, records - discussio with pt and ER attending - 36 min Present on Admission?: Yes History of Present Illness Chief Complaint: SOB, cough Primary Care Provider: NO PCP 63 y/o M Hx PVD, advanced COPD, medical noncompliance, who continues to smoke cigarettes. Presents with progressive SOB, wheezing and a cough. He denies any fevers or CP. He was hypoxic on arrival to the ER requiring 02 to maintain an adequate saturation. The pt is a poor historian and displays little knowledge or interest in his own medical condition. Initial labs demonstrated worsening renal function. A CXR shows hilar prominence vs R infiltrate. PMH: 1) PVD - stent in R leg 2) COPD 3) CKD III 4) Continued tobacco abuse Surgical: RLE stent Social: Smokes one pack daily History of ETOH abuse - quit 7 years ago He is noncompliant with some prescribed medications Family: Father owing to lung CA Mother due to an DE Allergies Allergy/AdvReac Type Severity Reaction Status Date / Time No Known Allergies Allergy Unknown Unverified 02/03/19 00:21 Home Medications Home Medications Medication Instructions Recorded Confirmed Type aspirin 81 mg PO DAILY 02/03/19 02/03/19 History clopidogrel 75 mg PO DAILY 02/03/19 02/03/19 History Past Med/Surg History Medical History Back pain (Acute) Claudication (Acute) Leg pain, right (Acute) Pneumonia Family History Other No significant family history Social History Feels Safe at Home: Yes Smoking Status: Current every day smoker Review of Systems Review of Systems: ROS may not be accurate Gen: Denies fevers, night sweats, rigors, fatigue, malaise, weight loss/gain ENT: Denies congestion, throat pain, hearing loss Eyes: Denies acute visual changes CV: Denies CP, palpitations Pulmonary: SOB, cough GI: Denies N/V, diarrhea, constipation Neuro: Denies acute or unilateral weakness, acute gait impairment, headache or acute visual changes Musculoskeletal: Denies joint pain, inflammation Endocrine: Denies polydipsia, polyuria Skin: Denies acute rashes or ulcers Physical Exam Physical Exam: General: AAO x 3, no distress ENT: No erythema or exudates, no thrush Eyes: WILLY, EOMI Head and neck: Normocephalic, atraumatic, No JVD, neck is supple. Chest/heart: Nontender, S1,2, RRR, no murmurs, no gallops Lungs: Poor air movement and wheezing in all lung cavazos. Abdomen: Nontender, nondistended, BS+ Neuro: AAO x 3, speech is clear, no unilateral weakness or loss of sensation, coordination intact Musculoskeletal: No joint inflammation, muscle tenderness, FROM Skin: No acute rashes or ulcers Extremities: No clubbing, cyanosis - edema of L leg only Results & Data Vital Signs (Past 12 Hours) Vital Signs Temp Pulse Pulse Resp BP BP Pulse Ox 02/03/19 05:35 96 H 22 147/90 H 100 02/03/19 04:15 17 129/92 92 02/03/19 04:01 21 94 02/03/19 04:00 18 158/96 H 94 02/03/19 03:45 23 143/97 H 96 02/03/19 03:31 15 100 02/03/19 03:30 20 148/97 H 99 02/03/19 03:15 120 H 22 155/103 H 100 02/03/19 03:00 113 H 15 156/88 H 100 02/03/19 02:24 105 H 20 92 02/03/19 02:15 104 H 174/107 H 93 02/03/19 01:45 105 H 149/96 H 94 02/03/19 01:42 105 H 20 180/102 H 95 02/03/19 01:00 82 202/118 H 02/03/19 00:48 83 22 208/129 H 100 02/03/19 00:33 80 22 94 02/02/19 23:53 97.9 F 91 H 20 139/82 91
[2019-02-03] MEDS ORDERED: ONDANSETRON INJ 2 MG/ML 2 ML VIAL IV PRN (06:07)
[2019-02-03] MEDS ORDERED: ALBUTEROL 0.083% NEBU SOLN 3 ML VIAL NEB PRN (06:07)
[2019-02-03] MEDS ORDERED: ACETAMINOPHEN 325 MG TAB PO PRN (06:07)
--- NOTE | 2019-02-03 06:30 | XRay Report ---
XR chest 1V portable HISTORY: 63 years-old Male sob acute shortness of breath COMPARISON: Chest CT of same day TECHNIQUE: Portable AP view of the chest FINDINGS: Cardiomediastinal and hilar silhouettes are within normal limits. No pneumothorax, pleural effusion o r overt pulmonary edema. Lungs are hyperinflated with advanced emphysema and chronic interstitial coa rsening. No lobar airspace consolidation. 1.4 cm nodular density of the right midlung. Degenerative c hanges of the shoulders and spine. IMPRESSION: 1. No acute process. 2. Emphysema with chronic interstitial coarsening. 3. 1.4 cm nodular density of the right midlung correlates with the spiculated nodule of the superior segment right lower lobe seen on chest CT of same day. The above report was generated using voice recognition software. It may contain grammatical, syntax o r spelling errors. Electronically signed by: Jaguar Jenkins M.D. 02/03/2019 6:29 AM
--- NOTE | 2019-02-03 07:14 | CT Scan Report ---
CT chest wo con CT DOSE: 224.72 mGy.cm HISTORY: Dyspnea sob, copd, ?LLL pneumonia TECHNIQUE: Multiaxial CT images of the chest were performed without contrast. A dose lowering techni que was utilized adhering to the principles of ALARA. COMPARISON: None. FINDINGS: Lungs demonstrate diffuse emphysematous change. Multifocal regions of a pleural-based nodul arity is most prominent at 1.2 cm superior segment right lower lobe. This is best seen transaxial tyree ge 149. Additional foci of atelectatic change considered pleural-based anterior aspect left upper lobe image 157. Additional pleural-based at area of atelectatic change right lower lobe image 187. Moderate peribronchial prominence throughout the mid to lower lung regions bilaterally. Perihilar cys tic changes and emphysematous bases bilaterally. Mid mediastinal precarinal nodes measuring up to 1.2 cm. No significant hilar adenopathy within limit ations of an unenhanced scan. IMPRESSION: 1. Diffuse emphysematous change. 2. Multifocal areas of peripheral atelectatic and or nodular-type change as discussed above. 3. Diffuse moderate peribronchial thickening of the mid to lower lung regions bilaterally. 4. Nodular follow-up should be performed per Fleischner criteria. Please refer to below summary of Fleischner criteria recommendations for follow-up of incidental CT n odules (Jeni Bolden, Guidelines for management of small pulmonary nodules detected on CT scans: A sta tement from the Fleischner Society, Radiology 237: [phone].) SOLID NODULES Solitary nodule size: <6 mm * low risk patients: no follow-up needed * high risk patients: optional CT at 12 months Solitary nodule size: 6-8 mm * low risk patients: follow-up at 6-12 months, then consider further follow-up at 18-24 months * high risk patients: initial follow-up CT at 6-12 months and then at 18-24 months if no change Solitary nodule size: >8 mm * either low or high risk patients - consider follow-up CT at 3 months, and/or CT-PET, and/or biopsy Multiple nodules size: <6 mm * low risk patients: no routine follow-up * high risk patients: optional CT at 12 months Multiple nodules size: 6-8 mm * low risk patients: follow-up at 3-6 months, then consider further follow-up at 18-24 months * high risk patients: follow-up at 3-6 months, then at 18-24 months if no change Multiple nodules size: >8 mm * low risk patients: follow-up at 3-6 months, then consider further follow-up at 18-24 months * high risk patients: follow-up at 3-6 months, then at 18-24 months if no change Note: newly detected indeterminate nodule in persons 35 years of age or older. * low risk patients: minimal or absent history of smoking and/or other known risk factors * high risk patients: history of smoking or of other known risk factors (e.g. first degree relative with lung cancer, or exposure to asbestos, radon, uranium) * if a nodule up to 8 mm is partly solid or is ground glass further follow-up is required after 24 m onths to exclude possible slow growing adenocarcinoma (JAM) SUBSOLID NODULES Solitary pure ground-glass nodule * nodule size <6 mm - no CT follow-up required * nodule size >=6 mm - follow-up CT at 6-12 months, then every 2 years until 5 years Solitary part-solid nodule * nodule size <6 mm - no CT follow-up required * nodule size >=6 mm - follow-up CT at 3-6 months. If unchanged, and solid component remains <6 mm, then annual follow-up for 5 years Multiple subsolid nodules * nodule size <6 mm - follow-up CT at 3-6 months, consider further follow-up at 2 and 4 years if sta ble * nodule size >=6 mm - follow-up CT at 3-6 months, subsequent management based on the most suspiciou s nodule(s) The above report was generated using voice recognition software. It may contain grammatical, syntax or spelling errors. Electronically signed by: Rylan Mendoza M.D. 02/03/2019 7:13 AM
[2019-02-03] MEDS: ALBUT/IPRATROP 3MG/0.5MG NEB 3 ML VIAL NEB SCH ×4 (07:19→19:44)
[2019-02-03 07:58] LABS: INR 1.1 (0.9-1.1); Prothrombin Time 10.9 Seconds (9.0-12.0)
--- NOTE | 2019-02-03 08:12 | Ultrasound Report ---
US venous doppler LE LT CLINICAL HISTORY: dvt PAIN. EDEMA. COMPARISON STUDY: No previous studies for comparison. FINDINGS: Real-time and color flow Doppler imaging were performed. Flow was seen within the femoral, popliteal and calf veins with no intraluminal thrombus demonstrated. The saphenous vein is patent. IMPRESSION: No evidence of deep venous thrombosis. The above report was generated using voice recognition software. It may contain grammatical, syntax or spelling errors. Electronically signed by: Rylan Mendoza M.D. 02/03/2019 8:10 AM
[2019-02-03] MEDS: D5W AND NSS 1,000 ML IV SCH ×2 (08:21→16:07)
[2019-02-03] MEDS: ASPIRIN 81 MG ECTAB PO SCH (08:38)
[2019-02-03] MEDS: CLOPIDOGREL BISULFATE 75 MG TAB PO SCH (08:38)
[2019-02-03] MEDS: methylPREDNISolone 60 MG in SYRINGE 0 ML IV SCH ×3 (08:38→20:57)
[2019-02-03] MEDS: HEPARIN SOD 5,000 UNIT/0.5 ML VIAL SQ SCH ×2 (13:18→20:57)
[2019-02-03 14:41] LABS: Appearance Urine Clear (Clear); Bacteria Urine Automated Negative (Negative); Bilirubin Urine Negative (Negative); Blood Urine Trace (Negative); Cast Urine Automated 0 /lpf (0-5); Color Urine Yellow; Epithelial Cell Urine Auto 0-5 /lpf (0-5); Glucose Urine UA 1+ (Negative); Ketones Urine Negative (Negative); Leukocyte Esterase Urine Trace (Negative); Nitrite Urine Positive (Negative); Protein Urine 1+ (Negative); RBC Urine Automated 0-4 /hpf (0-4); Specific Gravity Urine 1.019 (1.000-1.030); Urobilinogen Urine Negative (Negative)
[2019-02-03] MEDS ORDERED: AMLODIPINE BESYLATE 5 MG TAB PO ONE (15:33)
[2019-02-04] MEDS: methylPREDNISolone 60 MG in SYRINGE 0 ML IV SCH ×4 (01:39→20:35)
[2019-02-04] MEDS: HEPARIN SOD 5,000 UNIT/0.5 ML VIAL SQ SCH ×3 (06:26→22:21)
[2019-02-04] MEDS: ALBUT/IPRATROP 3MG/0.5MG NEB 3 ML VIAL NEB SCH (06:57)
[2019-02-04 08:01] LABS: Hematocrit (blood only) 35.7 % (42-52); Hemoglobin 12.1 g/dL (14.0-18.0); Mean Corpuscular Hgb Conc 33.9 g/dL (32-36); Mean Corpuscular Volume 92.5 fL (80-100); Platelet Count 164 K/uL (130-400); RDW Coefficient of Variation 15.4 % (11.5-14.5); RDW Standard Deviation 52.5 fL (36.4-46.3); Red Blood Count 3.86 M/uL (4.7-6.1); White Blood Count 19.17 K/uL (4.8-10.8)
[2019-02-04] MEDS: CLOPIDOGREL BISULFATE 75 MG TAB PO SCH (08:07)
[2019-02-04] MEDS: ASPIRIN 81 MG ECTAB PO SCH (08:08)
[2019-02-04 08:21] LABS: BUN Creatinine Ratio 20.9 (10-20); Calcium 8.7 mg/dl (8.5-10.1); Creatinine Clr Calc Pharmacy 37.1 ml/min; Est GFR (African American) 39.5; Potassium 4.8 mmol/L (3.5-5.1)
[2019-02-04] MEDS: LEVALBUTEROL HCL 1.25 MG/3 ML NEB NEB SCH ×2 (13:57→19:33)
[2019-02-04] MEDS: AMLODIPINE BESYLATE 5 MG TAB PO SCH (16:30)
[2019-02-04] MEDS: LEVOFLOXACIN/D5W 750 MG/150 ML BAG IV SCH (20:35)
--- NOTE | 2019-02-04 22:13 | Hospitalist Progress Note ---
Date of Service February 04, 2019 Assessment & Plan (1) COPD exacerbation: 63 y/o M Hx PVD, advanced COPD, medical noncompliance, who continues to smoke cigarettes. Presents with progressive SOB, wheezing and a cough. He denies any fevers or CP. He was hypoxic on arrival to the ER requiring 02 to maintain an adequate saturation. The pt is a poor historian and displays little knowledge or interest in his own medical condition. Initial labs demonstrated worsening renal function. A CXR shows hilar prominence vs R infiltrate. 1) COPD exacerbation - abnormal CXR, possible PNM - the pt is assigned to telemetry - provided with duonebs/albuterol, Solumedrol, antibiotics, [address] scan showed a nodule. Patient will be followed with nodule program. Will defer to PCP. Patient understands the risk of continuing to smoke. Will continue with Solumedrol. 2) MARY GRACE - likely imposed on CKD III as his last creat on record was 1.9. IVF provided - creatinine has been gradually improving. will continue to monitor. 3) PVD - edema of R leg - we will start with a venous doppler. He may need arterial studies, however, this can likely be done in the outpt setting as he does not have clinical ischemia. Cont ASA, Plavix. 4) Smoker - shows absolutely no interest in quitting. Full code - heparin prophylaxis Spent 25 minutes in management of patient. Subjective 63 yo male reports feeling mildly better today. He still reports being short of breath but is closer to his baseline. Patient atthis time denies any chest pain, nasuea, vomiting, shortness of breath Review of Systems Review of Systems: All systems reviewed & are unremarkable except as noted in HPI & below Physical Exam Physical Exam: General: AAO x 3, no distress ENT: No erythema or exudates, no thrush Eyes: WILLY, EOMI Head and neck: Normocephalic, atraumatic, No JVD, neck is supple. Chest/heart: Nontender, S1,2, RRR, no murmurs, no gallops Lungs: Poor air movement and wheezing in all lung cavazos. Abdomen: Nontender, nondistended, BS+ Neuro: AAO x 3, speech is clear, no unilateral weakness or loss of sensation, coordination intact Musculoskeletal: No joint inflammation, muscle tenderness, FROM Skin: No acute rashes or ulcers Extremities: No clubbing, cyanosis - edema of L leg only Results & Data Vital Signs (Past 12 Hours) Vital Signs Temp Pulse Resp BP BP Pulse Ox 02/04/19 19:35 90 16 93 02/04/19 19:15 36.6 C 90 18 163/94 H 164/89 H 92 02/04/19 16:15 195/104 H 185/97 H 02/04/19 14:59 36.7 C 93 H 23 177/102 H 91 02/04/19 13:57 72 18 94 02/04/19 11:38 36.6 C 90 16 163/88 H 93
[2019-02-05] MEDS: LEVALBUTEROL HCL 1.25 MG/3 ML NEB NEB SCH ×4 (01:41→18:52)
[2019-02-05] MEDS: methylPREDNISolone 60 MG in SYRINGE 0 ML IV SCH ×4 (01:51→20:37)
--- NOTE | 2019-02-05 04:20 | Progress Note ---
Date of Service February 05, 2019 Assessment & Plan (1) ST elevation: ST elevations appreciated on monitor, patient was symptomatic Plan; -EKG -Troponin Results & Data Vital Signs (Past 12 Hours) Vital Signs Temp Pulse Pulse Resp BP BP Pulse Ox 02/05/19 01:42 89 16 95 02/04/19 23:40 94 H 02/04/19 23:38 36.8 C 92 H 19 154/88 H 94 02/04/19 19:35 90 16 93 02/04/19 19:15 36.6 C 90 18 163/94 H 164/89 H 92
[2019-02-05] MEDS: HEPARIN SOD 5,000 UNIT/0.5 ML VIAL SQ SCH ×3 (05:41→21:09)
[2019-02-05] MEDS: ASPIRIN 81 MG ECTAB PO SCH (08:14)
[2019-02-05] MEDS: CLOPIDOGREL BISULFATE 75 MG TAB PO SCH (08:14)
[2019-02-05 09:10] LABS: Hematocrit (blood only) 36.5 % (42-52); Mean Corpuscular Hgb Conc 32.9 g/dL (32-36); Mean Corpuscular Volume 95.1 fL (80-100); Mean Platelet Volume 9.1 fL (7.4-10.4); Platelet Count 167 K/uL (130-400); RDW Coefficient of Variation 15.5 % (11.5-14.5); Red Blood Count 3.84 M/uL (4.7-6.1); White Blood Count 15.63 K/uL (4.8-10.8)
[2019-02-05 09:47] LABS: BUN Creatinine Ratio 21.1 (10-20); Calcium 8.9 mg/dl (8.5-10.1); Creatinine Clr Calc Pharmacy 25.4 ml/min; Est GFR (Non-African American) 23.3; Potassium 4.5 mmol/L (3.5-5.1)
[2019-02-05 09:54] LABS: Troponin I 0.059 ng/ml (0-0.045)
--- NOTE | 2019-02-05 15:24 | Cardiology Consultation ---
Date of Consultation February 05, 2019 Assessment & Plan (1) Elevated troponin: I reviewed the patient's telemetry from last evening. There was no abnormality. There was no ST segment elevation or significant change in the telemetry. He had no symptoms at that time. Cardiac biomarkers obtained during this admission were just above the limit of normal. I think this is likely explained by his presentation in the associated hypoxia. While he likely has an element of coronary disease and certainly has risk factors for coronary disease, he does not appear to be symptomatic. He is not manifesting symptoms consistent with congestive heart failure. He has no exertional angina. At this point I think would be reasonable to continue his current inpatient treatment for COPD exacerbation and readdress any cardiac risk factors or symptoms should they arise as an outpatient. History of Present Illness Reason for Consultation: Abnormal telemetry Requesting Physician: Bette Attending Physician: Hector Amos History of Present Illness Patient is a 63-year-old gentle without a known history of coronary disease who was admitted [facility] with symptoms of COPD exacerbation. Patient had significant breathing difficulty and is currently being treated for bronchitis and COPD exacerbation. He has not report any history of cardiac disease. The patient claims to be an active individual who was accustomed to routine ambulation. He does not report symptoms associated with ambulation such as limiting dyspnea or chest discomfort. He did not describe dizziness or lightheadedness. He has not been aware of any palpitations. He cannot recall any syncopal episodes. He did not describe any orthopnea or paroxysmal nocturnal dyspnea. Not been aware of any lower extremity edema. Patient has been monitored on telemetry since admission. Last night he was felt to have some changes in his telemetry suggestive of ischemia. Cardiac biomarkers were also obtained at that time which were just above the limit for normal. Patient cannot recall any symptoms occurring at that time. He was question at that time was not symptomatic. Today the patient claims to be feeling better. Still has an element of dyspnea with activity but feels he is ready to go home for recovery. He has some mild nonproductive coughing. Allergies Allergy/AdvReac Type Severity Reaction Status Date / Time No Known Allergies Allergy Unknown Unverified 02/03/19 00:21 Home Medications Home Medications Medication Instructions Recorded Confirmed Type aspirin 81 mg PO DAILY 02/03/19 02/03/19 History clopidogrel 75 mg PO DAILY 02/03/19 02/03/19 History Patient History Medical History Back pain (Acute) Claudication (Acute) Leg pain, right (Acute) Pneumonia Family History Other No significant family history Social History Preferred Language: [place] Communication Ability: Effective Material Expeditor Required: No Beliefs That Will Affect Care: None Current Living Situation: Significant Other Feels Safe at Home: Yes Safety Concerns: Feels Safe At This Time Smoking Status: Current every day smoker Tobacco Type: cigarettes Cigarettes Per Day: 20 Hx Alcohol Use: No Hx Substance Use: No Review of Systems Review of Systems: All systems reviewed & are unremarkable except as noted in HPI & below Patient not report any symptoms of claudication. He did report occasional cramps at nighttime. Reason eating well. No significant stress testing symptoms such as nausea or vomiting. Physical Exam Physical Exam: The patient is alert and oriented. Mood and affect appeared normal. He answered all questions appropriately. HEENT: Pupils are equal and reactive to light and accommodation. Extraocular movements are intact. The sclerae are anicteric. Neuro: Cranial nerves intact Neck: Patient's neck is supple. He has palpable carotid pulses bilaterally without bruits on auscultation. There is no evidence of jugular venous distention. The thyroid is not enlarged. Lungs: Diffuse bronchial breath sounds with coarse expiratory sounds. No expiratory wheezing. Distant breath sounds with reduced excursion. Prolonged expiratory phase. Cardiac: Heart demonstrates a regular rate and rhythm. Normal S1 and S2. No murmurs on examination. Pulses: The patient has palpable radial pulses bilaterally that are equal in intensity Extremities: There was no evidence of hypoperfusion. There is no cyanosis or clubbing. There is no edema. Trophic changes were noted on the legs there were normal dorsalis pedis pulses bilaterally Skin: I did not appreciate any rashes on examination today. Results & Data Vital Signs (Past 12 Hours) Vital Signs Temp Pulse Pulse Resp BP Pulse Ox 02/05/19 13:41 91 H 19 95 02/05/19 12:00 36.3 C L 94 H 20 175/95 H 96 02/05/19 08:00 90 02/05/19 07:19 86 18 93 02/05/19 07:00 36.5 C 88 18 170/97 H 93 02/05/19 04:43 36.4 C L 97 H 21 157/83 H 92 Laboratory Results Abnormal Lab Results 02/05/19 02/05/19 02/05/19 04:25 09:01 09:01 WBC 15.63 H RBC 3.84 L Hgb 12.0 L Hct 36.5 L MCV 95.1 MCH 31.3 MCHC 32.9 RDW Std Deviation 54.0 H RDW Coeff of Contreras 15.5 H Plt Count 167 MPV 9.1 Sodium 137 Potassium 4.5 Chloride 106 Carbon Dioxide 21 Anion Gap 9.0 BUN 58 H Creatinine 2.75 H D Est Cr Clr Drug Dosing 25.4 Est GFR ( Amer) 27.0 Est GFR (Non-Af Amer) 23.3 BUN/Creatinine Ratio 21.1 H Glucose 205 H Calcium 8.9 Troponin I 0.067 H* 0.059 H* Diagnostic Findings Chest x-ray and CT performed at the time of admission revealed emphysematous changes.
[2019-02-05] MEDS ORDERED: LACTATED RINGER'S 1,000 ML IV SCH (17:45)
[2019-02-05] MEDS: AMLODIPINE BESYLATE 5 MG TAB PO SCH (20:11)
--- NOTE | 2019-02-05 23:12 | Hospitalist Progress Note ---
Date of Service February 05, 2019 Assessment & Plan (1) COPD exacerbation: 63 y/o M Hx PVD, advanced COPD, medical noncompliance, who continues to smoke cigarettes. Presents with progressive SOB, wheezing and a cough. He denies any fevers or CP. He was hypoxic on arrival to the ER requiring 02 to maintain an adequate saturation. The pt is a poor historian and displays little knowledge or interest in his own medical condition. Initial labs demonstrated worsening renal function. A CXR shows hilar prominence vs R infiltrate. 1) COPD exacerbation Patient has long smoking history. Patient reports that he was smoking 2 packs for decades. - abnormal CXR, possible PNM - provided with levalbuterol, Solumedrol, antibiotics, [address] scan showed a nodule. Patient will be followed with nodule program. Will defer to PCP. Patient understands the risk of continuing to smoke. Will continue with Solumedrol. Concern over possible component of CHF. Cardio does not believe this is the case. BNP is elevated 2) MARY GRACE - likely imposed on CKD III as his last creat on record was 1.9. Creatinine has roxanne gradually worsening the past 2 days, now 2.75 and increased BUN. Despite, wheezing, he does not appear to be in pulmonary edema. Will place place on IVF fluids will continue to monitor. 3) PVD - edema of R leg - we will start with a venous doppler. He may need arterial studies, however, this can likely be done in the outpt setting as he does not have clinical ischemia. Cont ASA, Plavix. 4) Smoker - shows absolutely no interest in quitting. Full code - heparin prophylaxis Spent 35 minutes in management of patient. Subjective Patient IS LYING COMFORTABLY. He reports that he is breathing better. Patient though is not back to his baseline. Patient states that he can still hear himself wheeze. Review of Systems Review of Systems: All systems reviewed & are unremarkable except as noted in HPI & below Physical Exam Physical Exam: General: AAO x 3, no distress ENT: No erythema or exudates, no thrush Eyes: WILLY, EOMI Head and neck: Normocephalic, atraumatic, No JVD, neck is supple. Chest/heart: Nontender, S1,2, RRR, no murmurs, no gallops Lungs: Poor air movement and wheezing in all lung cavazos. Abdomen: Nontender, nondistended, BS+ Neuro: AAO x 3, speech is clear, no unilateral weakness or loss of sensation, coordination intact Musculoskeletal: No joint inflammation, muscle tenderness, FROM Skin: No acute rashes or ulcers Extremities: No clubbing, cyanosis - edema of L leg only Results & Data Vital Signs (Past 12 Hours) Vital Signs Temp Pulse Pulse Resp BP BP Pulse Ox 02/05/19 23:03 91 H 02/05/19 19:29 94 H 190/97 H 92 02/05/19 19:04 36.4 C L 89 23 184/106 H 91 02/05/19 18:52 90 16 98 02/05/19 16:05 94 H 02/05/19 15:24 36.3 C L 96 H 23 173/96 H 95 02/05/19 13:41 91 H 19 95 02/05/19 12:00 36.3 C L 94 H 20 175/95 H 96
[2019-02-06] MEDS: LEVALBUTEROL HCL 1.25 MG/3 ML NEB NEB SCH ×4 (01:22→19:13)
[2019-02-06] MEDS: methylPREDNISolone 60 MG in SYRINGE 0 ML IV SCH ×4 (01:25→20:21)
[2019-02-06] MEDS: HEPARIN SOD 5,000 UNIT/0.5 ML VIAL SQ SCH ×3 (06:12→20:53)
[2019-02-06] MEDS: CLOPIDOGREL BISULFATE 75 MG TAB PO SCH (08:21)
[2019-02-06] MEDS: ASPIRIN 81 MG ECTAB PO SCH (08:21)
[2019-02-06 09:08] LABS: BUN Creatinine Ratio 24.4 (10-20); Creatinine Clr Calc Pharmacy 27.5 ml/min; Est GFR (Non-African American) 25.1; Potassium 4.6 mmol/L (3.5-5.1)
--- NOTE | 2019-02-06 16:46 | XRay Report ---
XR chest 1V portable CLINICAL HISTORY: sob dyspnea COMPARISON STUDY: 02/03/2019 FINDINGS: Stable emphysematous change compared to the prior exam. Nodular density right midlung is le ss well-defined. Chronic basilar interstitial change unaltered. IMPRESSION: Emphysematous change. No acute process. The above report was generated using voice recognition software. It may contain grammatical, syntax or spelling errors. Electronically signed by: Rylan Mendoza M.D. 02/06/2019 4:45 PM
[2019-02-06] MEDS: LACTATED RINGER'S 1,000 ML IV SCH (16:55)
[2019-02-06] MEDS: LISINOPRIL 10 MG TAB PO SCH (17:26)
[2019-02-06] MEDS: AMLODIPINE BESYLATE 5 MG TAB PO SCH (20:21)
[2019-02-06] MEDS: LEVOFLOXACIN/D5W 750 MG/150 ML BAG IV SCH (20:21)
--- NOTE | 2019-02-06 23:48 | Hospitalist Progress Note ---
Date of Service February 06, 2019 Assessment & Plan (1) COPD exacerbation: 63 y/o M Hx PVD, advanced COPD, medical noncompliance, who continues to smoke cigarettes. Presents with progressive SOB, wheezing and a cough. He denies any fevers or CP. He was hypoxic on arrival to the ER requiring 02 to maintain an adequate saturation. The pt is a poor historian and displays little knowledge or interest in his own medical condition. Initial labs demonstrated worsening renal function. A CXR shows hilar prominence vs R infiltrate. 1) COPD exacerbation Patient has long smoking history. Patient reports that he was smoking 2 packs for decades. - abnormal CXR, possible PNM - provided with levalbuterol, Solumedrol, antibiotics, [address] scan showed a nodule. Patient will be followed with nodule program. Will defer to PCP. Patient understands the risk of continuing to smoke. Will continue with Solumedrol but will taper to q12h Clinically patient does not appear in congestive heart failure Cardio does not believe this is the case. BNP is elevated Patient also started on LAMA: spiriva. 2) MARY GRACE - likely imposed on CKD III as his last creat on record was 1.9. Creatinine has roxanne gradually worsening the past 2 days, now 2.75 and increased BUN. Despite, wheezing, he does not appear to be in pulmonary edema. Patient responded to IVF. Creat decreased to 2.5; since patient does not follow with PCP, will continue to monitor. 3) PVD - edema of R leg - we will start with a venous doppler. He may need arterial studies, however, this can likely be done in the outpt setting as he does not have clinical ischemia. Cont ASA, Plavix. 4) Smoker - shows absolutely no interest in quitting. 5) Uncontrolled hypertension: Patient started on amlodipine at the PM. BP remains elevated, despite elavted creatinine, will start patient on EMI inhibito r in AM and monitor his creat Full code - heparin prophylaxis Spent 35 minutes in management of patient. Subjective Patient reports breathing better today. He has no new complaints. He reports that he is wheezing less this morning. he also is ambulating the halls. Review of Systems Review of Systems: All systems reviewed & are unremarkable except as noted in HPI & below Physical Exam Physical Exam: General: AAO x 3, no distress ENT: No erythema or exudates, no thrush Eyes: WILLY, EOMI Head and neck: Normocephalic, atraumatic, No JVD, neck is supple. Chest/heart: Nontender, S1,2, RRR, no murmurs, no gallops Lungs: Poor air movement and wheezing (decreased in intensity) in all lung cavazos. Abdomen: Nontender, nondistended, BS+ Neuro: AAO x 3, speech is clear, no unilateral weakness or loss of sensation, coordination intact Musculoskeletal: No joint inflammation, muscle tenderness, FROM Skin: No acute rashes or ulcers Extremities: No clubbing, cyanosis - edema of L leg only Results & Data Vital Signs (Past 12 Hours) Vital Signs Temp Pulse Pulse Resp BP Pulse Ox 02/06/19 20:07 36.3 C L 101 H 20 140/88 93 02/06/19 19:15 104 H 20 93 02/06/19 16:38 36.5 C 91 H 18 176/97 H 90 02/06/19 16:00 96 H 02/06/19 14:11 81 18 91
[2019-02-07] MEDS: LEVALBUTEROL HCL 1.25 MG/3 ML NEB NEB SCH ×4 (01:03→19:31)
[2019-02-07] MEDS: HEPARIN SOD 5,000 UNIT/0.5 ML VIAL SQ SCH ×3 (05:23→20:25)
[2019-02-07] MEDS: LACTATED RINGER'S 1,000 ML IV SCH ×2 (05:23→18:04)
[2019-02-07 06:40] LABS: Hematocrit (blood only) 36.2 % (42-52); Hemoglobin 12.3 g/dL (14.0-18.0); Mean Corpuscular Volume 91.9 fL (80-100); Platelet Count 157 K/uL (130-400); RDW Coefficient of Variation 15.2 % (11.5-14.5); RDW Standard Deviation 52.1 fL (36.4-46.3); Red Blood Count 3.94 M/uL (4.7-6.1); White Blood Count 7.81 K/uL (4.8-10.8)
[2019-02-07 07:14] LABS: BUN Creatinine Ratio 28.1 (10-20); Calcium 8.4 mg/dl (8.5-10.1); Creatinine Clr Calc Pharmacy 32.8 ml/min; Est GFR (African American) 35.4; Est GFR (Non-African American) 30.5; Potassium 4.7 mmol/L (3.5-5.1)
[2019-02-07] MEDS: TIOTROPIUM BROMIDE 5 PUFF/90 MCG INH INH SCH (08:07)
[2019-02-07] MEDS: methylPREDNISolone 60 MG in SYRINGE 0 ML IV SCH (08:07)
[2019-02-07] MEDS: ASPIRIN 81 MG ECTAB PO SCH (08:08)
[2019-02-07] MEDS: CLOPIDOGREL BISULFATE 75 MG TAB PO SCH (08:08)
[2019-02-07] MEDS: LISINOPRIL 10 MG TAB PO SCH (08:08)
--- NOTE | 2019-02-07 09:21 | Hospitalist Progress Note ---
Date of Service February 07, 2019 Assessment & Plan (1) COPD exacerbation: 63 y/o M Hx PVD, advanced COPD, medical noncompliance, who continues to smoke cigarettes. Presents with progressive SOB, wheezing and a cough. He denies any fevers or CP. He was hypoxic on arrival to the ER requiring 02 to maintain an adequate saturation. The pt is a poor historian and displays little knowledge or interest in his own medical condition. Initial labs demonstrated worsening renal function. A CXR shows hilar prominence vs R infiltrate. 1) COPD exacerbation Patient has long smoking history. Patient reports that he was smoking 2 packs for decades. - abnormal CXR, possible PNM - provided with levalbuterol, Solumedrol, antibiotics, [address] scan showed a nodule. Patient will be followed with nodule program. Will defer to PCP. Patient understands the risk of continuing to smoke. Will continue with Solumedrol but will taper to once daily Clinically patient does not appear in congestive heart failure Cardio does not believe this is the case. BNP is elevated Patient also started on LAMA: spiriva. (2) Acute kidney injury: likely imposed on CKD III as his last creat on record was 1.9. Creatinine had worsened to 2.75 and increased BUN. Despite, wheezing, he does not appear to be in pulmonary edema. Patient responded to IVF. Creat decreased to 2.20 since patient does not follow with PCP, we do not have a baseline at this time. will continue with IVF. will continue to monitor. (3) Elevated troponin: Trop is 0.06 (4) Hypertensive urgency: Uncontrolled hypertension: Patient started on amlodipine at the PM. BP remained elevated. Despite elevated creatinine, Received first dose on 02/06 will start patient on EMI inhibitor in AM (02/07)and monitor his creat Creat though is better. BP is above goal. (5) Smoker: Patient has long history of smoking, he has about 60 pack year history. Currently not on a nicotine patch. He states he will try to quit smoking. (6) PVD (peripheral vascular disease): - edema has decreased Venous doppler is negative He may need arterial studies, however, this can likely be done in the outpt setting as he does not have clinical ischemia. Cont ASA, Plavix. Full code - heparin prophylaxis Spent 35 minutes in management of patient. Plan is to discharge patient either Friday or friday. Awaiting for better control of BP, creatinine to continue to trend down. Subjective 63 yo m who is a smoker is in the hospital for what appears to be a COPD exacerbation.Though he has not been evaluated by a doctor for this in years. Currently he reports he feels close to his baseline. He is lying in bed comfortably and is ambulating the halls without oxygen. Review of Systems Review of Systems: All systems reviewed & are unremarkable except as noted in HPI & below Physical Exam Physical Exam: General: AAO x 3, no distress ENT: No erythema or exudates, no thrush Eyes: WILLY, EOMI Head and neck: Normocephalic, atraumatic, No JVD, neck is supple. Chest/heart: Nontender, S1,2, RRR, no murmurs, no gallops Lungs: Poor air movement and wheezing in all lung cavazos. Abdomen: Nontender, nondistended, BS+ Neuro: AAO x 3, speech is clear, no unilateral weakness or loss of sensation, coordination intact Musculoskeletal: No joint inflammation, muscle tenderness, FROM Skin: No acute rashes or ulcers Extremities: No clubbing, cyanosis - edema has decreased Results & Data Vital Signs (Past 12 Hours) Vital Signs Temp Pulse Pulse Resp BP BP Pulse Ox 02/07/19 08:17 36.4 C L 91 H 19 170/105 H 91 02/07/19 07:56 92 H 02/07/19 07:22 90 20 93 02/07/19 04:32 36.4 C L 90 20 155/86 H 92 02/07/19 01:04 83 18 90 02/07/19 00:08 36.4 C L 89 20 157/85 H 92 02/06/19 23:25 92 H
[2019-02-07] MEDS: AMLODIPINE BESYLATE 5 MG TAB PO SCH (20:24)
[2019-02-08] MEDS: LEVALBUTEROL HCL 1.25 MG/3 ML NEB NEB SCH ×3 (01:48→14:13)
[2019-02-08] MEDS: LACTATED RINGER'S 1,000 ML IV SCH (05:14)
[2019-02-08] MEDS: HEPARIN SOD 5,000 UNIT/0.5 ML VIAL SQ SCH (05:29)
[2019-02-08 07:17] LABS: BUN Creatinine Ratio 27.5 (10-20); Calcium 7.8 mg/dl (8.5-10.1); Creatinine Clr Calc Pharmacy 32.1 ml/min; Est GFR (African American) 34.6; Est GFR (Non-African American) 29.9; Potassium 4.2 mmol/L (3.5-5.1)
[2019-02-08] MEDS: TIOTROPIUM BROMIDE 5 PUFF/90 MCG INH INH SCH (07:26)
[2019-02-08] MEDS: ASPIRIN 81 MG ECTAB PO SCH (07:26)
[2019-02-08] MEDS: LISINOPRIL 10 MG TAB PO SCH (07:26)
[2019-02-08] MEDS: CLOPIDOGREL BISULFATE 75 MG TAB PO SCH (07:26)
[2019-02-08] MEDS ORDERED: methylPREDNISolone 60 MG in SYRINGE 0 ML IV SCH (09:00)
[2019-02-08] MEDS ORDERED: levoFLOXacin 750 MG TAB PO ONE (11:00)
--- NOTE | 2019-02-08 15:13 | Discharge Summary ---
Date of Service February 08, 2019 Admission HPI Per Admitting Provider 63 y/o M Hx PVD, advanced COPD, medical noncompliance, who continues to smoke cigarettes. Presents with progressive SOB, wheezing and a cough. He denies any fevers or CP. He was hypoxic on arrival to the ER requiring 02 to maintain an adequate saturation. The pt is a poor historian and displays little knowledge or interest in his own medical condition. Initial labs demonstrated worsening renal function. A CXR shows hilar prominence vs R infiltrate. PMH: 1) PVD - stent in R leg 2) COPD 3) CKD III 4) Continued tobacco abuse Surgical: RLE stent Social: Smokes one pack daily History of ETOH abuse - quit 7 years ago He is noncompliant with some prescribed medications Family: Father owing to lung CA Mother due to an [place] Principal Diagnosis COPD exacerbation Discharge Exam Constitutional WD/WN, vitals as above Eyes EOM intact bilaterally; no conjunctival abnormality ENMT external ear and nose normal, oropharynx normal Neck trachea midline, no thyromegaly normal visual inspection Respiratory normal respiratory effort, lungs clear to auscultation + labored breathing; no respiratory distress Auscultation: + wheezes Cardiovascular RRR, no murmur, no edema Gastrointestinal (Abdomen) Inspection/Auscultation: abdomen normal to inspection; abdomen not distended Musculoskeletal no cyanosis or clubbing, extremities motor strength 5/5 Skin no rashes, warm and dry Neurologic moves all extremities and awake Psychiatric Orientation: alert, oriented to person and cooperative Discharge Data Allergies Allergy/AdvReac Type Severity Reaction Status Date / Time No Known Allergies Allergy Unknown Unverified 02/03/19 00:21 Consultations 02/03/19 03:31 ED Decision to Admit Stat 02/03/19 13:56 Consult Lung Nodule Program Routine 02/05/19 08:51 Consult Cardiology Routine 02/08/19 10:34 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 Patient reports that he was smoking 2 packs for decades. - abnormal CXR, possible PNM - provided with levalbuterol, Solumedrol, antibiotics, [address] scan showed a nodule. Patient will be followed with nodule program. Will defer to PCP. Patient understands the risk of continuing to smoke. Will continue with Solumedrol but will taper to once daily Clinically patient does not appear in congestive heart failure Cardio does not believe this is the case. BNP is elevated Patient also started on LAMA: spiriva. (2) Acute kidney injury: Likely imposed on CKD III as his last creat on record was 1.9. Creatinine had worsened to 2.75 and increased BUN. Despite, wheezing, he does not appear to be in pulmonary edema. Patient responded to IVF. Creat decreased to 2.20 Stable at ~2.0 on discharge. (3) Elevated troponin: Trop is 0.06 (4) Hypertensive urgency: Uncontrolled hypertension: Patient started on amlodipine at the PM. BP remained elevated - Discharged on amlo. (5) Smoker: Patient has long history of smoking, he has about 60 pack year history. Currently not on a nicotine patch. He states he will try to quit smoking. (6) PVD (peripheral vascular disease): Venous doppler was negative. He may need arterial studies, however, this can likely be done in the outpt setting as he does not have clinical ischemia. - Cont ASA, Plavix. Total Time Total Time Spent Total Time Spent (In Minutes): 35 Total Time Includes: Examination of the Patient, Discharge Planning and Medication Reconciliation Discharge Plan Discharge Items Patient Disposition: Home - Self-Care Reason For Visit: COPD EXACERBATION Discharge Diagnosis: COPD exacerbation Discharge Goals: Decrease discomfort and Improve disease control Activity: Resume your previous activity Non-emergency contact: Primary Care Provider Call non-emergency contact if: you have any medication questions and your symptoms worsen Follow-up/Referrals: PCP,NO [Primary Care Provider] - Diet: Regular Addtl Provider Instructions: Ben Huffman were admitted to the hospital with shortness of breath that we diagnosed as a COPD exacerbation. We gave you steroids and antibiotics and breathing treatments which helped your breathing returned to normal. By the day of discharge, you felt your breathing was back to baseline. We are discharging you with a few new medications to help your lungs stay healthy. First, we are discharging you with 2 more days of steroids. Take each dose in the morning with breakfast. Second, we are giving you a new blood pressure medication to take in the morning with your aspirin and Plavix. Finally, we are sending you with the inhalers albuterol and Spiriva. Take the Spiriva every day, no matter how you are breathing. It is meant to make your breathing better every day. Take the albuterol inhaler only when you feel short of breath. You can take it up to every 6 hours as needed. Tomorrow (Friday), one of our nurses named Millie Harrison will call you to help arrange a PCP appointment. Please answer your phone if you receive a call from the [facility]. Prescriptions: New prednisone 20 mg tablet 40 mg PO DAILY Qty: 4 RF: 0 Spiriva with HandiHaler 18 mcg capsule, w/inhalation device 1 cap INH DAILY Qty: 30 RF: 0 amlodipine 5 mg tablet 5 mg PO DAILY Qty: 30 RF: 0 albuterol sulfate 90 mcg/actuation HFA aerosol inhaler 2 puffs INH Q6H PRN (Reason: shortness of breath or wheezing) Qty: 6.7 RF: 0 Continued clopidogrel 75 mg Tablet 75 mg PO DAILY RF: 0 aspirin 81 mg Tablet,Delayed Release (Dr/Ec) 81 mg PO DAILY RF: 0 Stand-Alone Forms: My [facility] Discharge Orders: Discharge Order (Routine); Ordered 02/08/19 Ordered By: Checo Chau Admission Data Admit Date/Time: 02/03/19 04:38 Attending Provider: Checo Chau Admit Provider: Berto Harrison Primary Care Provider: PCP,NO Other Providers: Booker Arenas ; Checo Chau Service: Telemetry Medical Other Interventions: Discharge Summary Assessment (RN) Last Done: 02/08/19 13:18 DC Date/Time DO NOT enter until pt leaves facility: 02/08/19 14:42
== END 2019-02-08 14:42 | disposition home or self-care (01) | DRG 190 ==
LOC: ED 23:51 → SUATTDRO 02-03 04:38 → 2N 02-03 04:38
DX: F10.11 Alcohol abuse, in remission; N18.3 Chronic kidney disease, stage 3 (moderate); F17.210 Nicotine dependence, cigarettes, uncomplicated; I16.0 Hypertensive urgency; J44.1 Chronic obstructive pulmonary disease with (acute) exacerbation; Z95.828 Presence of other vascular implants and grafts; R78.89 Finding of other specified substances, not normally found in blood; Z79.82 Long term (current) use of aspirin; N17.9 Acute kidney failure, unspecified; Z51.81 Encounter for therapeutic drug level monitoring; J44.0 Chronic obstructive pulmonary disease with (acute) lower respiratory infection; R09.02 Hypoxemia; Z79.02 Long term (current) use of antithrombotics/antiplatelets; I73.9 Peripheral vascular disease, unspecified; Z91.14 Patient's other noncompliance with medication regimen; J18.9 Pneumonia, unspecified organism; Z87.01 Personal history of pneumonia (recurrent); R60.0 Localized edema

== ENCOUNTER 2020-05-02 15:55 | Inpatient (IN) ==
[2020-05-02 16:42] LABS: Basophils # (auto) 0.02 K/uL (0-0.2); Basophils % (auto) 0.2 %; Eosinophils # (auto) 0.22 K/uL (0-0.5); Eosinophils % (auto) 2.7 %; Hemoglobin 13.7 g/dL (14.0-18.0); Immature Granulocytes # (auto) 0.01 K/uL (0.00-0.02); Immature Granulocytes % (auto) 0.1 %; Lymphocytes # (auto) 1.89 K/uL (1.2-3.4); Lymphocytes % (auto) 22.9 %; Mean Corpuscular Hemoglobin 31.2 pg (25-34); Mean Corpuscular Hgb Conc 33.4 g/dL (32-36); Mean Corpuscular Volume 93.4 fL (80-100); Mean Platelet Volume 9.4 fL (7.4-10.4); Monocytes # (auto) 0.64 K/uL (0.11-0.59); Monocytes % (auto) 7.8 %; Neutrophils # (auto) 5.47 K/uL (1.4-6.5); Neutrophils % (auto) 66.3 %; Platelet Count 186 K/uL (130-400); RDW Coefficient of Variation 13.9 % (11.5-14.5); RDW Standard Deviation 47.7 fL (36.4-46.3); Red Blood Count 4.39 M/uL (4.7-6.1); White Blood Count 8.25 K/uL (4.8-10.8)
[2020-05-02 17:00] LABS: Alanine Aminotransferase 14 U/L (12-78); Albumin Level 3.4 gm/dl (3.4-5.0); Aspartate Aminotransferase 11 U/L (15-37); BUN Creatinine Ratio 12.8 (10-20); Blood Urea Nitrogen 36 mg/dl (7-18); Calcium 7.6 mg/dl (8.5-10.1); Carbon Dioxide 24 mmol/L (21-32); Chloride 113 mmol/L (98-107); Est GFR (African American) 25.9; Est GFR (Non-African American) 22.4; Glucose 88 mg/dl (70-99); Potassium 5.1 mmol/L (3.5-5.1); Sodium 140 mmol/L (136-145)
[2020-05-02] MEDS ORDERED: HydrALAZINE HCL 20 MG/ML VIAL IV ONE (17:03)
[2020-05-02 17:10] LABS: Albumin Globulin Ratio 0.9 (0.9-2); Alkaline Phosphatase 105 U/L (45-117); Bilirubin,Total 0.4 mg/dl (0.2-1); Globulin 3.6 gm/dl (2.5-4.0); Thyroid Stimulating Hormone 0.865 uIu/ml (0.300-4.500); Troponin I < 0.015 ng/ml (0-0.045)
[2020-05-02] MEDS ORDERED: SODIUM CHLORIDE 0.9% 500 ML IV SCH (17:15)
--- NOTE | 2020-05-02 17:15 | Emergency Department Note ---
Impression & Plan Visual loss, Hypertensive urgency, Stroke-like symptoms ED Provider Note NAME: BANDAR ESTEVEZ AGE: 64 SEX: M : 1955 ARRIVES VIA: Walk-In INFORMANT: [Patient] ED PROVIDER(S): [Soy Mills MD] CHIEF COMPLAINT: Dizziness, visual issues HISTORY OF PRESENT ILLNESS: The patient is a 64-year-old male presents with weeks of a visual disturbance. He feels he may actually be nearly blind in the right eye and he has noticed some blurry vision in the left. He feels dizzy. No weakness in the arms or legs. No headache. No cough or congestion, chest pain or shortness of breath. No fever. Patient admits that he has not taken any of his medications, including his blood pressure medications in months. The patient states that the vision loss has progressed quite a bit, he was concerned and came for evaluation. As per nursing staff, the patient had a high blood pressure when he arrived, he was orthostatic. REVIEW OF SYSTEMS: See HPI for pertinent positives and negatives. A total of ten systems were reviewed and were otherwise negative. PMHx/PSHx: See Below SOCIAL HISTORY: See Below. PHYSICAL EXAM: GENERAL: Patient is in no acute distress. HEENT: No acute trauma, normocephalic atraumatic, mucous membranes moist, no nasal congestion, no scleral icterus. Patient appears to have a cataract in the right eye. He does have reactive pupils. He can see light with the right eye but not much more. He can see much better with the left eye. No afferent pupillary defect. NECK: No stridor, no adenopathy, no meningismus, trachea is midline. LUNGS: Decreased breath sounds, occasional wheezing, breath sounds are equal, no respiratory distress. HEART: Without murmurs gallops or rubs, regular rate and rhythm. ABDOMEN: Soft, nontender, bowel sounds positive, no hernias, no peritonitis. EXTREMITIES: No cyanosis or edema, full range of motion of all the joints without pain or difficulty, no signs for acute trauma. NEUROLOGIC: Oriented x 3, no acute motor or sensory deficits, no focal weakness. No speech slur or facial droop, no extremity drift, no cerebellar dysfunction. SKIN: No rash, no jaundice, no diaphoresis. DIFFERENTIAL DIAGNOSIS: Infection, dehydration, metabolic abnormality, stroke, cataract, medication noncompliance, hypo/hyperglycemia, electrolyte disturbance, anemia, hypoxia, cardiac sources, intracerebral event, toxicologic, neurologic, as well as other pathologies. EMERGENCY DEPARTMENT COURSE/PROCEDURES: ECG: Indication was possible stroke. The ECG shows a normal sinus rhythm with a rate of 62. There is some diffuse nonspecific ST change. The QTc is 458. There are some potential peaked T waves. There is no ST elevation, no PVCs. Continuous Cardiac Monitoring: An order was placed for continuous cardiac monitoring. The monitor shows a rate of 73 with normal sinus rhythm. Orthostatic vital signs were positive, the blood pressure decreased significantly with standing. MEDICAL DECISION MAKING: There is no leukocytosis or concerning anemia. There is a normal platelet count. No coagulopathy. Renal panel shows a creatinine of 2.83, this is baseline looking back at previous testing. No concerning electrolyte abnormality. No liver enzyme elevation. The patient appeared to be in a euthyroid state. ECG shows a normal sinus rhythm, no acute ischemia. Cardiac enzyme testing x1 is not consistent with acute cardiac injury. Chest film shows evidence for COPD/emphysema, no focal infiltrate. Brain CT shows no acute bleed or mass-effect. On my exam, the patient appeared to have a cataract possibly to the right eye. The left eye seemed clear. Both eyes were reactive to light. He did have a significant decrease in his vision from the right eye. No focal extremity motor deficits. No speech slur. The patient was quite hypertensive but when stood, dropped his blood pressure. He was orthostatic. Patient received IV saline, 1 L. He received IV hydralazine, a second dose of IV hydralazine was given. His blood pressure is now lower at 165 systolic. Patient presents with visual issues and uncontrolled blood pressure. He has not been taking his BP meds. Certainly, a posterior circulation stroke is a possibility. The patient would benefit from a stroke work-up here in the hospital. He needs better blood pressure control. As mentioned above, some of the issue with his right eye vision may be related to what seems to be a cataract. I spoke to the patient, I talked with case management. The on-call hospitalist has been consulted. Of note, the patient is not a TPA candidate as his symptoms have been ongoing for weeks if not longer. 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 Beliefs That Will Affect Care: None Current Living Situation: Significant Other Other Information That Helps Us Care for You: No Feels Safe at Home: Yes Safety Concerns: Feels Safe At This Time Allergies Allergies Allergy/AdvReac Type Severity Reaction Status Date / Time No Known Allergies Allergy Unknown Verified 05/02/20 18:56 Home Meds Home Medications Medication Instructions Recorded Confirmed aspirin 81 mg PO QAM 02/03/19 05/02/20 salmeterol [Serevent Diskus] 1 puffs INH BID PRN 05/02/20 05/02/20 Previous Rx's Medication Instructions Recorded albuterol sulfate 2 puffs INH Q6H PRN #6.7 gm 02/08/19 Results & Data (ED) Vital Signs Vital Signs - 24 hr 05/02/20 16:17 05/02/20 16:53 05/02/20 18:07 Temperature 36.4 C L Temperature Source Oral Pulse Rate - Lying 68 Pulse Rate - Sitting 65 Pulse Rate - Standing 105 H Pulse Rate 74 73 Pulse Rate [Bilateral Apical] Respiratory Rate 20 16 Blood Pressure - Lying 219/130 H Blood Pressure - Sitting 155/102 H Blood Pressure- Standing 91/67 L Blood Pressure 100/71 228/119 H Blood Pressure [Left Arm] Blood Pressure Mean 80 139 Blood Pressure Mean [Left Arm] Pulse Oximetry 99 Oxygen Delivery Method Room Air Sepsis Recent Fever Within 48 Hours No Sepsis New/Unexplained Change in Mental Status No Sepsis Action Taken by Nursing No Action Required 05/02/20 18:08 05/02/20 18:42 05/02/20 19:05 Temperature Temperature Source Pulse Rate - Lying Pulse Rate - Sitting Pulse Rate - Standing Pulse Rate 69 73 Pulse Rate [Bilateral Apical] 66 Respiratory Rate 18 16 20 Blood Pressure - Lying Blood Pressure - Sitting Blood Pressure- Standing Blood Pressure 165/103 H Blood Pressure [Left Arm] 140/95 Blood Pressure Mean 111 Blood Pressure Mean [Left Arm] 110 Pulse Oximetry 97 Oxygen Delivery Method Room Air Sepsis Recent Fever Within 48 Hours Sepsis New/Unexplained Change in Mental Status Sepsis Action Taken by Nursing 05/02/20 20:11 Temperature Temperature Source Pulse Rate - Lying Pulse Rate - Sitting Pulse Rate - Standing Pulse Rate Pulse Rate [Bilateral Apical] 88 Respiratory Rate 20 Blood Pressure - Lying Blood Pressure - Sitting Blood Pressure- Standing Blood Pressure Blood Pressure [Left Arm] 189/121 H Blood Pressure Mean Blood Pressure Mean [Left Arm] 143 Pulse Oximetry 96 Oxygen Delivery Method Sepsis Recent Fever Within 48 Hours Sepsis New/Unexplained Change in Mental Status Sepsis Action Taken by Assisted Medications Current Medication List: was personally reviewed by me Laboratory Data Attestation: I reviewed the patient's lab results. Result diagrams: 05/02/20 16:30 05/02/20 16:30 Lab Results 05/02/20 05/02/20 05/02/20 Range/Units 16:30 16:30 16:30 WBC 8.25 (4.8-10.8) K/uL RBC 4.39 L (4.7-6.1) M/uL Hgb 13.7 L (14.0-18.0) g/dL Hct 41.0 L (42-52) % MCV 93.4 (80-100) fL MCH 31.2 (25-34) pg MCHC 33.4 (32-36) g/dL RDW Std Deviation 47.7 H (36.4-46.3) fL RDW Coeff of Contreras 13.9 (11.5-14.5) % Plt Count 186 (130-400) K/uL MPV 9.4 (7.4-10.4) fL Immature Gran % (Auto) 0.1 % Neut % (Auto) 66.3 % Lymph % (Auto) 22.9 % [facility] % (Auto) 7.8 % Eos % (Auto) 2.7 % Baso % (Auto) 0.2 % Neut # (Auto) 5.47 (1.4-6.5) K/uL Lymph # (Auto) 1.89 (1.2-3.4) K/uL [facility] # (Auto) 0.64 H (0.11-0.59) K/uL Eos # (Auto) 0.22 (0-0.5) K/uL Baso # (Auto) 0.02 (0-0.2) K/uL Immature Gran # (Auto) 0.01 (0.00-0.02) K/uL PT 11.1 (9.0-12.0) Seconds INR 1.1 (0.9-1.1) APTT 32.1 H (21.0-31.0) Seconds PTT Ratio 1.2 Sodium 140 (136-145) mmol/L Potassium 5.1 (3.5-5.1) mmol/L Chloride 113 H (98-107) mmol/L Carbon Dioxide 24 (21-32) mmol/L Anion Gap 3.0 (3-11) BUN 36 H (7-18) mg/dl Creatinine 2.83 H (0.6-1.4) mg/dl Est Cr Clr Drug Dosing 22.0 ml/min Est GFR ( Amer) 25.9 Est GFR (Non-Af Amer) 22.4 BUN/Creatinine Ratio 12.8 (10-20) Glucose 88 (70-99) mg/dl Calcium 7.6 L (8.5-10.1) mg/dl Magnesium (1.8-2.4) mg/dl Total Bilirubin 0.4 (0.2-1) mg/dl AST 11 L (15-37) U/L ALT 14 (12-78) U/L Alkaline Phosphatase 105 (45-117) U/L Troponin I < 0.015 (0-0.045) ng/ml Total Protein 7.0 (6.4-8.2) gm/dl Albumin 3.4 (3.4-5.0) gm/dl Globulin 3.6 (2.5-4.0) gm/dl Albumin/Globulin Ratio 0.9 (0.9-2) TSH 0.865 (0.300-4.500) uIu/ml 05/02/20 Range/Units 16:30 WBC (4.8-10.8) K/uL RBC (4.7-6.1) M/uL Hgb (14.0-18.0) g/dL Hct (42-52) % MCV (80-100) fL MCH (25-34) pg MCHC (32-36) g/dL RDW Std Deviation (36.4-46.3) fL RDW Coeff of Contreras (11.5-14.5) % Plt Count (130-400) K/uL MPV (7.4-10.4) fL Immature Gran % (Auto) % Neut % (Auto) % Lymph % (Auto) % [facility] % (Auto) % Eos % (Auto) % Baso % (Auto) % Neut # (Auto) (1.4-6.5) K/uL Lymph # (Auto) (1.2-3.4) K/uL [facility] # (Auto) (0.11-0.59) K/uL Eos # (Auto) (0-0.5) K/uL Baso # (Auto) (0-0.2) K/uL Immature Gran # (Auto) (0.00-0.02) K/uL PT (9.0-12.0) Seconds INR (0.9-1.1) APTT (21.0-31.0) Seconds PTT Ratio Sodium (136-145) mmol/L Potassium (3.5-5.1) mmol/L Chloride (98-107) mmol/L Carbon Dioxide (21-32) mmol/L Anion Gap (3-11) BUN (7-18) mg/dl Creatinine (0.6-1.4) mg/dl Est Cr Clr Drug Dosing ml/min Est GFR ( Amer) Est GFR (Non-Af Amer) BUN/Creatinine Ratio (10-20) Glucose (70-99) mg/dl Calcium (8.5-10.1) mg/dl Magnesium 2.1 (1.8-2.4) mg/dl Total Bilirubin (0.2-1) mg/dl AST (15-37) U/L ALT (12-78) U/L Alkaline Phosphatase (45-117) U/L Troponin I (0-0.045) ng/ml Total Protein (6.4-8.2) gm/dl Albumin (3.4-5.0) gm/dl Globulin (2.5-4.0) gm/dl Albumin/Globulin Ratio (0.9-2) TSH (0.300-4.500) uIu/ml Administered Medications Discontinued Medications Amlodipine Besylate (Amlodipine Besylate 5 Mg Tab) 5 mg PO NOW ONE Stop: 05/02/20 20:44 Last Admin: 05/02/20 20:57 Dose: 5 mg Documented by: [id number] Clopidogrel Bisulfate (Clopidogrel Bisulfate 300 Mg Tab) 300 mg PO NOW STA Stop: 05/02/20 20:29 Last Admin: 05/02/20 20:52 Dose: 300 mg Documented by: [id number] Hydralazine HCl (Hydralazine Hcl 20 Mg/Ml Vial) 5 mg IV NOW ONE Stop: 05/02/20 17:04 Last Admin: 05/02/20 17:18 Dose: 5 mg Documented by: [id number] Hydralazine HCl (Hydralazine Hcl 20 Mg/Ml Vial) 10 mg IV NOW STA Stop: 05/02/20 18:12 Last Admin: 05/02/20 18:18 Dose: 10 mg Documented by: [id number] Sodium Chloride (Nss) 500 mls @ 999 mls/hr IV .Q31M JOVANY Stop: 05/02/20 17:45 Last Infusion: 05/02/20 18:13 Dose: 0 mls/hr Documented by: [id number] Admin: 05/02/20 17:18 Dose: 999 mls/hr Documented by: [id number] Sodium Chloride (Nss 1000ml) 500 mls @ 999 mls/hr IV .Q31M ONE Stop: 05/02/20 19:24 Last Infusion: 05/02/20 19:47 Dose: 0 mls/hr Documented by: [id number] Admin: 05/02/20 19:08 Dose: 999 mls/hr Documented by: [id number] Imaging Data Radiologist's Impression: CT head/brain wo con CLINICAL HISTORY: Strokelike symptoms COMPARISON STUDY: No previous studies for comparison. TECHNIQUE: Axial CT of the brain is performed from the vertex to the skull base. IV contrast was not administered for this examination. A dose lowering technique was utilized adhering to the principles of ALARA. CT DOSE: 614.27 mGy.cm FINDINGS: No intra or extra-axial mass lesions are visualized. There is no CT evidence of acute cortical infarction. There is no evidence of midline shift. There is no acute hemorrhage. No calvarial fractures are visualized. There are patchy white matter hypodensities likely on a small vessel basis. There is no evidence of pathologic ventricular dilatation. There is no evidence of acute sinusitis IMPRESSION: No acute intracranial findings XR chest 1V portable CLINICAL HISTORY: weakness COMPARISON STUDY: Chest x-ray dated 02/06/2019 FINDINGS: There is radiographic evidence of emphysema. The patient is hyperinflated. There is no failure. There is no focal pulmonary consolidation. There is hilar prominence, likely related to enlarged pulmonary arteries second josh to[pulmonary arterial hypertension. No pleural effusions are visualized IMPRESSION: 1. Emphysema and suspected pulmonary arterial hypertension 2. No evidence of acute parenchymal consolidation Blood Pressure Blood Pressure Findings: Elevated blood pressure Blood Pressure Disposition: further management by hospitalist Discharge Plan Visit Data Chief Complaint: Dizziness Stated Complaint: dizzy, light headed, vison problems ED Provider: Soy Mills Discharge Problem: Visual loss, Hypertensive urgency, Stroke-like symptoms Patient Disposition: Admitted As Inpatient Condition: Good Discharge Instructions Interventions: ED Discharge Assessment Last Done: 05/02/20 21:28
[2020-05-02 17:21] LABS: INR 1.1 (0.9-1.1); Partial Thromboplastin Ratio 1.2; Partial Thromboplastin Time 32.1 Seconds (21.0-31.0); Prothrombin Time 11.1 Seconds (9.0-12.0)
--- NOTE | 2020-05-02 17:54 | CT Scan Report ---
CT head/brain wo con CLINICAL HISTORY: Strokelike symptoms COMPARISON STUDY: No previous studies for comparison. TECHNIQUE: Axial CT of the brain is performed from the vertex to the skull base. IV contrast was not administered for this examination. A dose lowering technique was utilized adhering to the principles of ALARA. CT DOSE: 614.27 mGy.cm FINDINGS: No intra or extra-axial mass lesions are visualized. There is no CT evidence of acute cortical infarc tion. There is no evidence of midline shift. There is no acute hemorrhage. No calvarial fractures ar e visualized. There are patchy white matter hypodensities likely on a small vessel basis. There is no evidence of pathologic ventricular dilatation. There is no evidence of acute sinusitis IMPRESSION: No acute intracranial findings ACT 112: Negative or not required by law. Electronically signed by: Mc Hsieh M.D. 05/02/2020 5:50 PM
--- NOTE | 2020-05-02 18:09 | XRay Report ---
XR chest 1V portable CLINICAL HISTORY: weakness COMPARISON STUDY: Chest x-ray dated 02/06/2019 FINDINGS: There is radiographic evidence of emphysema. The patient is hyperinflated. There is no fail ure. There is no focal pulmonary consolidation. There is hilar prominence, likely related to enlarged pulmonary arteries secondary to[pulmonary arterial hypertension. No pleural effusions are visualized IMPRESSION: 1. Emphysema and suspected pulmonary arterial hypertension 2. No evidence of acute parenchymal consolidation ACT 112: Negative or not required by law. Electronically signed by: Mc Hsieh M.D. 05/02/2020 6:07 PM
[2020-05-02] MEDS ORDERED: HydrALAZINE HCL 20 MG/ML VIAL IV STA (18:11)
[2020-05-02] MEDS ORDERED: SODIUM CHLORIDE 0.9% 1000ML 500 ML IV ONE (18:54)
--- NOTE | 2020-05-02 19:24 | History & Physical Report ---
Date of Service May 02, 2020 Assessment & Plan (1) Dizziness: Hypertensive emergency vs. posterior circulation CVA/stenosis (+/- subclavian steal) vs. secondary to vision loss. Appears improved with lower BP in ER. US b/l arterial doppler UE to assess for subclavian stenosis Unfortunately unable to undergo CT angio head/neck due to renal function. Will get MRA head and carotid US b/l. TTE HbA1C and lipid panel in AM Given non-acute will treat BP as hypertensive emergency/retinopathy and lower more urgently than for CVA (management as below). Continue ASA 81mg PO daily Consult neurology. (2) Visual loss: Slow progressive from history - suspected vitreous hemorrhage vs. hypertensive retinopathy. No retinal detachment US available. Initial history of more sudden vision loss and concurrent dizziness as above more consistent with retinal artery occlusion / CVA and given prior PVD he was given clopidogrel in ER. However, given concern for vitreous hemorrhage subsequent doses of this will be held. CT head negative for intracranial hemorrhage. MR brain w/o contrast to r/o stroke/PRES as above. Discussed with Dr Warren, if patient able to be discharged tomorrow he can be followed up in clinic the same day. If he stays beyond tomorrow he should have inpatient consult. Ok for patient to continue on ASA. Recommended ESR/CRP to r/o GCA. (3) Hypertensive emergency: Very labile BP with hydralazine IV use in ER. Start amlodipine 5mg PO daily (first dose now) as previously discharged on this - this can be obtained for as little as $40 a year without insurance (a fraction of what he spends on cigarettes therefore cost should not be an issue), needs establish with new PCP. (4) Chronic kidney disease: Cr 2.83, last labs in April with Cr 2.45. Will give IV fluids overnight and repeat with AM labs (5) PVD (peripheral vascular disease): Continue ASA, lipid panel in AM to assess need for statin (6) COPD (chronic obstructive pulmonary disease): No current exacerbation. (7) Tobacco use disorder: Smoking cessation advised. Declines nicotine patch Admission and Anticipated Discharge Date Admission Date: 05/01/2020 History of Present Illness Chief Complaint: Vision loss, lightheadedness, dizziness Primary Care Provider: NO PCP Dalton Reyes is a 64-year-old male who presents to the ER with lightheadedness and dizziness intermittently but progressively worse over the last 2 weeks. Worse when he lifts his arms up to reach coffee with either hand. No room spinning. No change with head movement. Denies this is vertiginous. He reports having similar episodes when he came in with high blood pressure and was diagnosed with pneumonia during his last admission in January 2019. He was concerned his blood pressure was getting elevated again after stopping his blood pressure medication 6 to 12 months ago. He denies any prior history of stroke or heart attack. 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 Previously on aspirin and Plavix although he tells me he could not afford the Plavix so he stopped this. He reports compliance with aspirin 81 mg p.o. daily. He is unsure why is not on a statin. No known history of irregular heart rate or atrial fibrillation/flutter. The lightheadedness and dizziness are his main reasons for coming to the ER however he also has ongoing painless vision loss. He has almost complete vision loss in his right eye progressively worse over the last 1 month; he can now only see light movement in this eye. He has generalized vision blurriness in his left eye but is progressively been getting worse over the last 3 weeks. He denies any red hue, floaters, flashing lights, conjunctival injection or eye pain. Initially reported the symptoms came on suddenly but on further questioning it appears this is more of a gradual onset. He reports 3 months ago his vision was completely normal. He has not seen an master printer regarding this although he believes previously he was told he has cataracts. Known COPD for which he was hospitalized in January 2019 with concurrent pneumonia. Spiriva was unaffordable so he stopped this. He reports using his albuterol a few times a week but no recent exacerbation. Patient has a history of noncompliance with medication. He continues to smoke however he is actively trying to quit and is now down to less than 1 pack a day. Previous recorded history of EtOH abuse however he reports no alcohol in the last 8 years and prior to this will drink a sixpack every now and again no daily drinking. He denies any illicit substance use. Allergies Allergy/AdvReac Type Severity Reaction Status Date / Time No Known Allergies Allergy Unknown Verified 05/02/20 18:56 Home Medications Home Medications Medication Instructions Recorded Confirmed Type aspirin 81 mg PO QAM 02/03/19 05/02/20 History albuterol sulfate 2 puffs INH Q6H PRN #6.7 gm 02/08/19 05/02/20 Rx salmeterol [Serevent Diskus] 1 puffs INH BID PRN 05/02/20 05/02/20 History Past Med/Surg History Medical History Back pain Chronic kidney disease Baseline creatinine appears to be around 1.9mg/dl COPD (chronic obstructive pulmonary disease) Hypertension Admitted 02/03/19-02/08/19 with COPD exacerbation, found to have HTN urgency. Started on amlodipine 5mg daily the however this was discontinued due to cost Pneumonia Tobacco use disorder 60 pack year history (2ppd for decades). Precontemplative Surgical History S/P arterial stent Unknown date; right leg; unknown location Family History Father , age 79 of pulmonary issues Lung cancer Lung disease Mother , age 53 of cancer (uncertain type but maybe lung) Hypertension Cancer Other No significant family history Social History Smoking Status: Current every day smoker Years Smoked: 40; Cigarettes Per Day: 20; Second Hand Exposure: Yes; Do You Dip or Chew Tobacco: No; Tobacco Cessation Education Requested by Patient: Yes Hx Alcohol Use: No Hx Substance Use: No Preferred Language: Polish Communication Ability: Effective Paint Tinter Required: No Beliefs That Will Affect Care: None Current Living Situation: Significant Other current occupational status: retired current occupation: retired 1 year ago from [employer] Other Information That Helps Us Care for You: No Feels Safe at Home: Yes Safety Concerns: Feels Safe At This Time Review of Systems Review of Systems: All systems reviewed & are unremarkable except as noted in HPI & below Physical Exam 2 Constitutional: well developed, + thin and + frail appearing; + not well nourished and no acute distress Eyes: + anicteric sclerae, PERRL, + abnormal light reflex (No red reflex in the right eye, unable to visualize retina) and + retinal abnormality (Pale- appearing retina in the left eye although visualization inadequate with PPE and nondilated pupil, no hemorrhage noted); no conjunctival abnormality, no periorbital abnormality, pupils not irregular, no EOM movement deficit, no nystagmus and no papilledema ENMT: external ear and nose normal, oropharynx normal Neck: trachea midline, no thyromegaly Respiratory: normal respiratory effort and + prolonged expiratory phase; no respiratory distress Cardiovascular: Rate/Rhythm: regular rate and regular rhythm Heart Sounds: no murmur Vessels: no JVD Extremities: + abnormal capillary refill (6-7s in feet, bilateral equal, no central cyanosis), no calf tenderness and no pedal edema Gastrointestinal (Abdomen): normal bowel sounds, soft, nontender, no hepatosplenomegaly Musculoskeletal: no cyanosis or clubbing, extremities motor strength 5/5 Skin: no rashes, warm and dry Neurologic: moves all extremities and awake; no focal motor deficits and not confused Speech / Cognition: normal speech Motor/Sensory: no tremor, no pronator drift and no sensory deficit Cranial Nerves: PERRL (Full eye exam above), EOM intact bilaterally, normal facial strength, tongue midline, able to rotate head bilaterally, able to elevate shoulders bilaterally, no nystagmus and symmetric palate elevation; + hearing impairment (Baseline hearing loss) Coordination: normal [id number] test and normal [id number] test Psychiatric: Orientation: alert and oriented x 3 Affect: euthymic affect Genitourinary: no CVA tenderness Lymphatic: no cervical or axillary lymphadenopathy Results & Data Results & Data ([facility]) Vital Signs (Past 12 Hours) Vital Signs Temp Pulse Pulse Resp BP BP Pulse Ox 05/02/20 19:05 66 20 140/95 97 05/02/20 18:42 73 16 165/103 H 05/02/20 18:08 69 18 05/02/20 18:07 73 16 228/119 H 05/02/20 16:17 36.4 C L 74 20 100/[address] head/brain wo con IMPRESSION: No acute intracranial findings ECG Indication: other (Strokelike symptoms) Rate (beats per minute): 62 Rhythm: normal sinus Findings: + T-wave inversion Comparison ECG Date: from (May 02, 2019) Change: the following changes noted (Inferior T wave inversions are new) PG Care Time/CCT Total # of Minutes Spent Total Time Spent with Patient: Total time spent is greater than 50% in coordination of care (as documented) at patient's floor/unit and/or counseling patient: Coding Level of Care Code 08790 Initial Inpt Care Lvl 3 Diagnoses Dizziness R42 Visual loss H54.7 Hypertensive emergency I16.1 Chronic kidney disease N18.4 Chronic kidney disease stage: stage 4 (severe) PVD (peripheral vascular disease) I73.9 COPD (chronic obstructive pulmonary disease) J44.9 Tobacco use disorder F17.200 (1) Chronic kidney disease Chronic kidney disease stage: stage 4 (severe) Qualified Code(s): N18.4 - Chronic kidney disease, stage 4 (severe)
[2020-05-02] MEDS ORDERED: CLOPIDOGREL BISULFATE 300 MG TAB PO STA (20:28)
[2020-05-02] MEDS ORDERED: AMLODIPINE BESYLATE 5 MG TAB PO ONE (20:43)
[2020-05-02] MEDS ORDERED: ALUMINUM/MAGNESIUM SUSP 30 ML UDC PO PRN (22:09)
[2020-05-02] MEDS ORDERED: POLYETHYLENE (MIRALAX) 17 GM PACK PO PRN (22:09)
[2020-05-02] MEDS ORDERED: ACETAMINOPHEN 325 MG TAB PO PRN (22:09)
[2020-05-02] MEDS ORDERED: ONDANSETRON INJ 2 MG/ML 2 ML VIAL IV PRN (22:09)
[2020-05-03] MEDS ORDERED: PHARMACIST DISCHARGE MED REC CONSULT PRN (00:08)
[2020-05-03] MEDS: LACTATED RINGER'S 1,000 ML IV SCH ×3 (01:28→17:11)
[2020-05-03 06:31] LABS: Basophils # (auto) 0.01 K/uL (0-0.2); Basophils % (auto) 0.2 %; Eosinophils # (auto) 0.18 K/uL (0-0.5); Hematocrit (blood only) 36.8 % (42-52); Hemoglobin 12.5 g/dL (14.0-18.0); Immature Granulocytes # (auto) 0.02 K/uL (0.00-0.02); Immature Granulocytes % (auto) 0.3 %; Lymphocytes # (auto) 1.71 K/uL (1.2-3.4); Lymphocytes % (auto) 28.6 %; Mean Corpuscular Hemoglobin 31.7 pg (25-34); Mean Corpuscular Volume 93.4 fL (80-100); Mean Platelet Volume 9.6 fL (7.4-10.4); Monocytes # (auto) 0.47 K/uL (0.11-0.59); Monocytes % (auto) 7.9 %; Neutrophils # (auto) 3.58 K/uL (1.4-6.5); Platelet Count 165 K/uL (130-400); RDW Coefficient of Variation 13.9 % (11.5-14.5); RDW Standard Deviation 47.9 fL (36.4-46.3); Red Blood Count 3.94 M/uL (4.7-6.1); White Blood Count 5.97 K/uL (4.8-10.8)
--- NOTE | 2020-05-03 07:01 | Magnetic Resonance Report ---
MRI OF THE BRAIN WITHOUT CONTRAST CLINICAL HISTORY: bilateral right > left vision loss COMPARISON STUDY: Head CT May 02, 2020. TECHNIQUE: Utilizing a 1.5 Shilpa magnet and dedicated coil, multiplanar, multiecho imaging of the bra in was performed without IV contrast. FINDINGS: Note is made of a small 4 mm focus of increased signal intensity within the left thalamus o n diffusion weighted sequence image 11 of . This is hypointense on the ADC map. No additional foci of restricted diffusion are noted. There is mild atrophy. Basilar cisterns are patent. There are no e xtra-axial collections. Flow-voids for the major intracranial vessels are present. There is no intrac ranial mass or pathologic enhancement. Mild white matter T2 hyperintense foci suggest small vessel di sease. There is mild polypoid mucosal thickening of the maxillary sinuses. Orbits are unremarkable on this nondedicated examination. No acute intracranial hemorrhage, midline shift or mass effect is pre sent. Calvarial signal is unremarkable. IMPRESSION: 1. Small 4 mm focus of restricted diffusion within the left thalamus consistent with an acute to suba cute lacunar infarct. 2. Mild atrophy and small vessel disease. ACT 112: Negative or not required by law. Electronically signed by: Jeff Alfonso M.D. 05/03/2020 7:00 AM
[2020-05-03 07:07] LABS: BUN Creatinine Ratio 14.3 (10-20); Calcium 8.3 mg/dl (8.5-10.1); Creatinine Clr Calc Pharmacy 25.6 ml/min; Est GFR (African American) 30.2; Est GFR (Non-African American) 26.1; Potassium 4.4 mmol/L (3.5-5.1)
[2020-05-03] MEDS: AMLODIPINE BESYLATE 5 MG TAB PO SCH (08:09)
[2020-05-03] MEDS: ASPIRIN 81 MG ECTAB PO SCH (08:09)
--- NOTE | 2020-05-03 08:09 | Neurology Consultation ---
Date of Consultation May 03, 2020 Assessment & Plan (1) Acute CVA (cerebrovascular accident): (2) Visual loss: (3) Dizziness: (4) Hypertensive emergency: (5) Orthostasis: (6) Chronic kidney disease: (7) Chronic cerebral ischemia: (8) Tobacco use disorder: This patient had a small left thalamic stroke , age undetermined but likely within the last few weeks based on MRI appearance. The etiology of this stroke is likely small vessel ischemic disease from severe hypertension. MRI also shows mild diffuse chronic small vessel ischemic disease of an old nature. He presented to the emergency room with severe hypertension, somewhat improved today. He was orthostatic in the emergency room yesterday and not dizzy was sitting this morning. I do not believe this stroke seen on MRI correlates with any clinical symptoms and is likely just a function of the severe hypertension. Typically, a stroke in the left thalamus would give right-sided sensory changes or even possibly motor changes. More importantly, he has subacute, progressive visual loss right greater than left high bilaterally. He has no MRI findings to correlate with this. I am not certain, from a neurologic standpoint, what is causing his progressive visual loss. He has no meningeal signs or encephalopathy and no signs of infection by testing so far. MR angiography of the head was unremarkable with no vascular stenoses or vessel anomalies. Hypertensive vascular disease in the retina is possible. Cataract formation , corneal abnormality, or inflammation the eyes are possible. risk factors for stroke include hypertension and significant cigarette smoking. He does not seem to have any evidence for dyslipidemia or diabetes. Recommendations: 1. Carotid ultrasound is pending. 2. Echocardiogram is pending as well. 3. control blood pressure aiming for a mean arterial pressure of approximately 100. 4. we could switch his aspirin to clopidogrel 75 mg a day, but I believe his main stroke prevention will be a controlled blood pressure and stopping cigarette smoking. 5. Hemoglobin A1c is pending. His fasting lipid profile is quite good and it looks like he does not need a statin. 6. consider Lyme antibody titer, RPR, and RHINA. 7. consider Nephrology opinion regarding his renal function. This could be done as an outpatient. 8. This patient needs to see an folder hand as soon as possible. 9. Otherwise, he is stable neurologically. 10. keep hydrated Overall, I spent a total of 85 minutes with this case including review of records, review of MRI films, direct evaluation the patient at bedside, and discussing the case with the patient at bedside and Dr. Amos, including differential diagnosis and treatment options. History of Present Illness Reason for Consultation: Patient is a 64-year-old, who I was asked to see at the request of Dr. Soriano, for neurologic consultation regarding subacute onset visual issues, dizziness, and possible stroke. Requesting Physician: Dr. Soriano Attending Physician: Abran Soriano MD History of Present Illness patient has been hypertensive for many years. Seven or 8 years ago he had a right leg arterial stent put in and has been on 81 mg aspirin tablet daily ever since. The patient is a 40+ year cigarette smoker and has COPD. About 2 months ago, patient noted blurry vision in the right eye. It got progressively worse to the point where about 1 month ago he really could not see out of the right and only sees light verses dark. About a month ago the left eye started getting blurry and this is gotten worse. He is still able to watch TV and make things out on the TV but can't read well. He denies eye pain or double vision. He has no headache. He denies any new weakness or numbness of the limbs or pain in the limbs or spine. His balance is reasonable and he is not falling. He has no swallowing issues or incontinence of urine. Also for about the last 2 months he has had dizziness intermittently. This has been progressive to. He describes it as combination of lightheadedness and wooziness particularly when he stands up or moves around. He does not have it when he is still, sitting. He arrived to the emergency room on May 02 at 1617, with a temperature of 36.4, pulse of 74, respiratory rate of 20, blood pressure initially of 100/71 but then shortly thereafter blood pressure lying of 219/130 with a pulse of 68, blood pressure 155/102 with a pulse of 65 sitting, and blood pressure 91/67 with a pulse of 105 standing. He was lightheaded and clearly orthostatic. CBC showed anemia a mild nature. Chemistry profile showed elevated BUN and creatinine and low calcium of 7.6. TSH was as was magnesium. CT scan of the head showed mild old nonspecific white matter lesions and no acute changes. Chest x-ray showed changes of COPD pulmonary arterial hypertension. MRI of the brain showed a small left thalamic area acute/subacute stroke with mild generalized atrophy and old small vessel ischemic changes. I reviewed these films. MR angiography of the head was unremarkable with no vessel stenoses or abnormalities. Carotid ultrasound was performed but is pending. Echocardiogram has been ordered. ESR was 18 and CRP was less than 0.29. Chem profile showed elevated BUN and creatinine again and calcium improved at 8.3. Cholesterol was 157 and triglycerides were 103. Hemoglobin A1c is pending and he has anemia. Blood pressure was 173/94 this morning he remains afebrile. Clinically he feels better today with less dizziness but his vision is the same. He has no new numbness or dysesthesias. Allergies Allergy/AdvReac Type Severity Reaction Status Date / Time No Known Allergies Allergy Unknown Verified 05/02/20 18:56 Home Medications Home Medications Medication Instructions Recorded Confirmed Type aspirin 81 mg PO QAM 02/03/19 05/02/20 History albuterol sulfate 2 puffs INH Q6H PRN #6.7 gm 02/08/19 05/02/20 Rx salmeterol [Serevent Diskus] 1 puffs INH BID PRN 05/02/20 05/02/20 History Patient History Medical History Back pain Chronic kidney disease Baseline creatinine appears to be around 1.9mg/dl COPD (chronic obstructive pulmonary disease) Hypertension Admitted 02/03/19-02/08/19 with COPD exacerbation, found to have HTN urgency. Started on amlodipine 5mg daily the however this was discontinued due to cost Pneumonia Tobacco use disorder 60 pack year history (2ppd for decades). 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: No Beliefs That Will Affect Care: None Current Living Situation: Significant Other current occupational status: retired current occupation: retired 1 year ago from [employer] Other Information That Helps Us Care for You: No Feels Safe at Home: Yes Safety Concerns: Feels Safe At This Time Review of Systems Constitutional: no fever, no fatigue and no weakness Eyes: + worsening vision; no diplopia and no eye pain Ear, Nose, Mouth, Throat: no ear pain, no tinnitus, no hearing loss, no dizziness, no hoarseness and no dysphagia Respiratory: no cough and no dyspnea Cardiovascular: no chest pain, no palpitations and no lightheadedness Gastrointestinal: no abdominal pain, no nausea and no vomiting Genitourinary: no dysuria and no urinary incontinence Musculoskeletal: no back pain, no neck pain, no radicular pain, no joint pain and no myalgia Integumentary: no rash and no lesions Neurologic: + dizziness; no gait abnormality, no localized weakness, no generalized weakness, no tingling, no numbness, no tremor(s), no abnormal movements, no headache(s), no abnormal speech, no confusion and no memory loss Psychiatric: no depression, no irritability, no anxiety, no difficulty concentrating, no confusion and no hallucinations Endocrine: no fatigue and no flushing Hematologic / Lymphatic: no easy bleeding and no easy bruising Allergy / Immunological: no urticaria and no problem reported Exam (Neuro) Physical Exam: The patient is right-handed. The patient is awake, alert, and attentive. Speech is normal without any aphasia or dysarthria. he can name objects, repeat phrases, and has normal spontaneous speech. Mentation and thought processes are intact, with orientation to person, place and time, and normal fund of knowledge. Attention and concentration are normal. Mood and affect are normal and appropriate. General appearance and grooming are normal. Short and long-term memory are intact. The discs are not able to be visualized. I cannot see through the lens in either eye. Pupils are 3 mm bilaterally and reactive to light. Extraocular eye muscles are intact without nystagmus. Visual acuity and visual cavazos seem normal grossly to confrontation. in the right eye he can only see light verses dark. In the left eye he can't make out images and objects. There are no deficits to sensation in the face in all 3 distributions of the fif th cranial nerve bilaterally. Corneal reflexes are positive bilaterally. Facial strength and symmetry was normal bilaterally. Hearing seems normal to whisper and finger rub bilaterally. Palate moves well without asymmetry. There is normal sternocleidomastoid and trapezius (shoulder shrug) strength bilaterally. Tongue is midline with good strength bilaterally. Neck has a full range of motion without discomfort. There are no cervical bruits bilaterally. There are no cranial or ocular bruits. Heart is without murmur. There is a regular rhythm and rate. Cervical, thoracic, and lumbar spine are nontender to palpation. Gait was not tested. stance sitting up in bed is quite normal. He did not get dizzy this morning sitting up dangling his feet. With outstretched arms there is no drift. There are no resting, postural, or action tremors. There is no ataxia with finger to nose testing. There is good facility in the hands. No other abnormal involuntary movements are noted. Motor strength is 5/5 diffusely in the arms bilaterally including deltoids, biceps, triceps, brachioradialis, wrist flexors and extensors, microsoft bi architect, and intrinsic hand muscles. Motor strength is 5/5 diffusely in the legs bilaterally including hip flexors, quadriceps, hamstrings, gastrocnemius, tibialis anterior, tibialis posterior, and Peroneii muscles. Toe extensors are normal and there is good bulk in the extensor digitorum brevis muscles bilaterally. The limbs have good tone without rigidity or spasticity. There is no atrophy noted in the muscles. Muscle bulk is normal, there is no tenderness to palpation, no myotonia to percussion, and no fasciculations seen. Sensory examination is intact to touch and pin throughout all 4 limbs diffusely. Reflexes are 1/4 in the biceps, triceps, brachioradialis, quadriceps, and Achilles tendons bilaterally. There is no clonus bilaterally. Toes are downgoing with plantar stimulation bilaterally. Peripheral pulses are present and of normal quality distally in all 4 limbs. There is no peripheral edema noted in the limbs. Results & Data ([facility]) Vital Signs (Past 12 Hours) Vital Signs Temp Pulse Pulse Pulse Resp BP BP 05/03/20 07:26 61 05/03/20 07:13 36.9 C 63 18 173/94 H 05/03/20 04:00 36.6 C 63 18 155/91 H 05/03/20 01:43 36.7 C 65 20 138/86 05/03/20 00:42 75 05/02/20 22:36 86 05/02/20 22:11 36.4 C L 84 18 131/82 05/02/20 21:27 73 20 118/88 05/02/20 20:52 80 20 143/96 H 05/02/20 20:11 88 20 189/121 H Pulse Ox 05/03/20 07:26 05/03/20 07:13 96 05/03/20 04:00 97 05/03/20 01:43 98 05/03/20 00:42 05/02/20 22:36 05/02/20 22:11 98 05/02/20 21:27 100 05/02/20 20:52 100 05/02/20 20:11 96 Diagnostic Findings MRI OF THE BRAIN WITHOUT CONTRAST CLINICAL HISTORY: bilateral right > left vision loss COMPARISON STUDY: Head CT May 02, 2020. TECHNIQUE: Utilizing a 1.5 Shilpa magnet and dedicated coil, multiplanar, multiecho imaging of the brain was performed without IV contrast. FINDINGS: Note is made of a small 4 mm focus of increased signal intensity within the left thalamus on diffusion weighted sequence image . This is hypointense on the ADC map. No additional foci of restricted diffusion are noted. There is mild atrophy. Basilar cisterns are patent. There are no extra- axial collections. Flow-voids for the major intracranial vessels are present. There is no intracranial mass or pathologic enhancement. Mild white matter T2 hyperintense foci suggest small vessel disease. There is mild polypoid mucosal thickening of the maxillary sinuses. Orbits are unremarkable on this nondedicated examination. No acute intracranial hemorrhage, midline shift or mass effect is present. Calvarial signal is unremarkable. IMPRESSION: 1. Small 4 mm focus of restricted diffusion within the left thalamus consistent with an acute to subacute lacunar infarct. 2. Mild atrophy and small vessel disease. ACT 112: Negative or not required by law. Electronically signed by: Jeff Alfonso M.D. 05/03/2020 7:00 AM PG Care Time/CCT Total # of Minutes Spent Total Time Spent with Patient: Total time spent is greater than 50% in coordination of care (as documented) at patient's floor/unit and/or counseling patient: Coding Level of Care Code 57541 Initial Inpt Care Lvl 3 Diagnoses Acute CVA (cerebrovascular accident) I63.9 Visual loss H54.7 Dizziness R42 Hypertensive emergency I16.1 Orthostasis I95.1 Chronic kidney disease N18.4 Chronic kidney disease stage: stage 4 (severe) Chronic cerebral ischemia I67.82 Tobacco use disorder F17.200 Time Spent (min) 85 (1) Chronic kidney disease Chronic kidney disease stage: stage 4 (severe) Qualified Code(s): N18.4 - Chronic kidney disease, stage 4 (severe)
--- NOTE | 2020-05-03 08:31 | Magnetic Resonance Report ---
MR ANGIOGRAPHY OF THE [place] NO CONTRAST CLINICAL HISTORY: lightheaded, dizziness, b/l vision loss HYPERTENSION COMPARISON STUDY: None. A 3-D [id number] MR angiographic sequence of the [place] was performed. Both the source and projection images were reviewed. There is no evidence of major intracranial branch occlusion. There is no evidence of intracranial siobhan nosis. There are no lesions suspicious for aneurysm. IMPRESSION: Unremarkable MR angiography of the [place]. ACT 112: Negative or not required by law. Electronically signed by: Mc Hsieh M.D. 05/03/2020 8:29 AM
--- NOTE | 2020-05-03 08:40 | Ultrasound Report ---
ULTRASOUND OF THE CAROTID ARTERIES CLINICAL HISTORY: lightheaded, dizzy, vision loss, concern for subclavian steal vision loss, dizzines s, lightheadedness. Possible subclavian steal. COMPARISON STUDY: 07/03/2006 TECHNIQUE: Real-time, grayscale, and color Doppler sonography of the carotid arteries was performed. Imaging reviewed in the transverse and longitudinal planes. NASCET criteria was utilized for stenosis calcification. FINDINGS: There is minimal atherosclerotic plaque present . The peak systolic velocity within the right internal carotid artery is 75 cm/sec. The systolic velocity ratio of right internal to common carotid artery is 1. The peak systolic velocity within the left internal carotid artery is 66 cm/sec. The systolic velocity ratio left internal to common carotid artery is 1. Antegrade flow is seen in the vertebral arteries. The external carotid arteries are patent. Blood pressure in the right arm measured 148 mm/Hg. Blood pressure in the left arm measured 99 mm/Hg . IMPRESSION: 1. No evidence of hemodynamically significant carotid stenosis 2. Asymmetric arm blood pressures. The findings could be secondary to a subclavian stenosis. CT angio graphy could be obtained in follow-up as deemed clinically appropriate. ACT 112: Negative or not required by law. Electronically signed by: Mc Hsieh M.D. 05/03/2020 8:39 AM
[2020-05-03 10:10] LABS: Estimated Average Glucose 114 mg/dl; Hemoglobin A1C 5.6 % (4.5-5.6)
--- NOTE | 2020-05-03 11:13 | XCELERA ---
[id number]
--- NOTE | 2020-05-03 12:04 | Electrocardiogram Report ---
Test Reason : Blood Pressure : / mmHG Vent. Rate : 062 BPM Atrial Rate : 062 BPM P-R Int : 144 ms QRS Dur : 076 ms QT Int : 452 ms P-R-T Axes : 072 068 -85 degrees QTc Int : 458 ms Normal sinus rhythm Nonspecific T wave abnormality Abnormal ECG When compared with ECG of 27-APR-2019 16:53, Nonspecific T wave abnormality now evident in Inferior leads Confirmed by Shabbir Galvin ([id number]) on 05/03/2020 12:03:55 PM Referred By: REFERRED SELF Confirmed By:Shabbir Galvin
[2020-05-03] MEDS ORDERED: lisinopriL 5 MG TAB PO ONE (16:21)
--- NOTE | 2020-05-03 21:06 | Hospitalist Progress Note ---
Date of Service May 03, 2020 Assessment & Plan (1) Dizziness: Hypertensive emergency vs. posterior circulation CVA/stenosis (+/- subclavian steal) vs. secondary to vision loss. Appears improved with lower BP in ER. Appears to be non related to the stroke. Likely from elevated BP. Will continue to manage BP with oral MEDS. It appears patient has been noncomplaint with his emdications in the past; patient states that this is due to cost. (2) Visual loss: Slow progressive from history - suspected vitreous hemorrhage vs. hypertensive retinopathy. No retinal detachment US available. Initial history of more sudden vision loss and concurrent dizziness as above more consistent with retinal artery occlusion / CVA and given prior PVD he was given clopidogrel in ER. However, given concern for vitreous hemorrhage subsequent doses of this will be held. CT head negative for intracranial hemorrhage. MR brain w/o contrast to r/o stroke/PRES as above. Discussed with Dr Warren, if patient able to be discharged tomorrow he can be followed up in clinic the same day. If he stays beyond tomorrow he should have inpatient consult. Ok for patient to continue on ASA. Recommended ESR/CRP to r/o GCA. (3) Hypertensive emergency: Very labile BP with hydralazine IV use in ER. Start amlodipine 5mg PO daily (first dose now) as previously discharged on this - this can be obtained for as little as $40 a year without insurance (a fraction of what he spends on cigarettes therefore cost should not be an issue), needs establish with new PCP. (4) Chronic kidney disease: Cr 2.83, last labs in April with Cr 2.45. Will give IV fluids overnight and repeat with AM labs (5) PVD (peripheral vascular disease): Continue ASA, lipid panel in AM to assess need for statin (6) COPD (chronic obstructive pulmonary disease): No current exacerbation. (7) Tobacco use disorder: Smoking cessation advised. Declines nicotine patch Admission and Anticipated Discharge Date Admission Date: May 02, 2020 Subjective Patient reports feeling well. He has no new complaints. Review of Systems Review of Systems: All systems reviewed & are unremarkable except as noted in HPI & below Physical Exam Physical Exam: Constitutional: well developed, + thin and + frail appearing; + not well nourished and no acute distress Eyes: + anicteric sclerae, PERRL, o conjunctival abnormality, no periorbital abnormality, pupils not irregular, no EOM movement deficit, no nystagmus and no papilledema ENMT: external ear and nose normal, oropharynx normal Neck: trachea midline, no thyromegaly Respiratory: normal respiratory effort and + prolonged expiratory phase; no respiratory distress Cardiovascular: Rate/Rhythm: regular rate and regular rhythm Heart Sounds: no murmur Vessels: no JVD Extremities: + abnormal capillary refill (6-7s in feet, bilateral equal, no central cyanosis), no calf tenderness and no pedal edema Gastrointestinal (Abdomen): normal bowel sounds, soft, nontender, no hepatosplenomegaly Musculoskeletal: no cyanosis or clubbing, extremities motor strength 5/5 Skin: no rashes, warm and dry Neurologic: moves all extremities and awake; no focal motor deficits and not confused Speech / Cognition: normal speech Psychiatric: Orientation: alert and oriented x 3 Affect: euthymic affect Genitourinary: no CVA tenderness Lymphatic: no cervical or axillary lymphadenopathy Results & Data Results & Data ([facility]) Vital Signs (Past 12 Hours) Vital Signs Temp Pulse Pulse Resp BP BP Pulse Ox 05/03/20 20:00 36.9 C 65 20 175/82 H 97 05/03/20 16:50 64 05/03/20 15:25 36.7 C 63 18 184/100 H 186/102 H 97 05/03/20 11:18 36.4 C L 65 18 170/92 H 97 PG Care Time/CCT Total # of Minutes Spent Total Time Spent with Patient: Total time spent is greater than 50% in coordination of care (as documented) at patient's floor/unit and/or counseling patient: Coding Level of Care Code 34067 Subseq Hosp Care Lvl 2 Diagnoses Dizziness R42 Visual loss H54.7 Hypertensive emergency I16.1 Chronic kidney disease N18.4 Chronic kidney disease stage: stage 4 (severe) PVD (peripheral vascular disease) I73.9 COPD (chronic obstructive pulmonary disease) J44.9 Tobacco use disorder F17.200 Time Spent (min) 35 (1) Chronic kidney disease Chronic kidney disease stage: stage 4 (severe) Qualified Code(s): N18.4 - Chronic kidney disease, stage 4 (severe)
[2020-05-04] MEDS ORDERED: METOPROLOL TARTRATE 1 MG/ML VIAL IV STA (00:10)
[2020-05-04] MEDS: LACTATED RINGER'S 1,000 ML IV SCH ×2 (00:37→09:23)
[2020-05-04] MEDS: ASPIRIN 81 MG ECTAB PO SCH (07:57)
[2020-05-04] MEDS: AMLODIPINE BESYLATE 5 MG TAB PO SCH (07:57)
--- NOTE | 2020-05-04 10:46 | Neurology Progress Note ---
Date of Service May 04, 2020 Assessment & Plan (1) Acute CVA (cerebrovascular accident): (2) Visual loss: (3) Dizziness: (4) Hypertensive emergency: (5) Orthostasis: (6) Chronic kidney disease: (7) Chronic cerebral ischemia: (8) Tobacco use disorder: This patient had a small left thalamic stroke , age undetermined but likely within the last few weeks based on MRI appearance. The etiology of this stroke is likely small vessel ischemic disease from severe hypertension. MRI also shows mild diffuse chronic small vessel ischemic disease of an old nature. He presented to the emergency room with severe hypertension, resolved today. He was orthostatic in the emergency room yesterday, but has not been dizzy in the last 24 hours. I do not believe this stroke seen on MRI correlates with any clinical symptoms and is likely just a function of the severe hypertension. Typically, a stroke in the left thalamus would give right-sided sensory changes or even possibly motor changes. More importantly, he has subacute, progressive visual loss right greater than left high bilaterally. He has no MRI findings to correlate with this. I am not certain, from a neurologic standpoint, what is causing his progressive visual loss. He has no meningeal signs or encephalopathy and no signs of infection by testing so far. MR angiography of the head was unremarkable with no vascular stenoses or vessel anomalies. Hypertensive vascular disease in the retina is possible. Cataract formation , corneal abnormality, or inflammation the eyes are possible. risk factors for stroke include hypertension and significant cigarette smoking. He does not seem to have any evidence for dyslipidemia or diabetes. Recommendations: 1. continue to control blood pressure, aiming for a mean arterial pressure of approximately 100. 2. we could switch his aspirin to clopidogrel 75 mg a day, but I believe his main stroke prevention will be a controlled blood pressure and stopping cigarette smoking. 3. Hemoglobin A1c is normal at 5.6. 4. His fasting lipid profile is quite good and it looks like he does not need a statin. 5. consider Lyme antibody titer, RPR, and RHINA. 6. consider Nephrology opinion as an outpatient. 7. This patient needs to see an hay rake operator as soon as possible. 8. Otherwise, he is stable neurologically other no further neurologic testing or treatment recommendations to make at this time. 9. keep hydrated Overall, I spent a total of 15 minutes with this case including review of records, direct evaluation the patient at bedside, and discussing the case with the patient at bedside Admission and Anticipated Discharge Date Admission Date: May 02, 2020 Subjective Feels well today with no pain, headache, weakness, or numbness. He has no dysesthesias on the right. His vision is about the same as before. Blood pressure is 133/70. Carotid ultrasound was unremarkable. Echocardiogram showed some mild left ventricular hypertrophy but no shunt or any other significant findings. Results & Data ([facility]) Vital Signs (Past 12 Hours) Vital Signs Temp Pulse Pulse Resp BP BP BP 05/04/20 07:23 36.4 C L 69 18 133/70 05/04/20 03:00 36.5 C 63 20 152/83 H 05/04/20 01:31 65 180/102 H 174/100 H 05/04/20 00:38 73 201/110 H 05/04/20 00:10 70 05/04/20 00:00 59 L 05/03/20 23:58 204/110 H 199/101 H 05/03/20 23:00 36.5 C 63 20 192/99 H Pulse Ox 05/04/20 07:23 96 05/04/20 03:00 96 05/04/20 01:31 05/04/20 00:38 05/04/20 00:10 05/04/20 00:00 05/03/20 23:58 05/03/20 23:00 97 Exam (Neuro) Physical Exam: He is awake and alert. Speech is without aphasia or dysarthria. Mood is normal and affect is appropriate. Thought processes are intact to conversation. Extraocular eye muscles are intact without nystagmus and there is no facial droop. Limb strength and movement is symmetrical. He has no abnormal involuntary movements. PG Care Time/CCT Total # of Minutes Spent Total Time Spent with Patient: Total time spent is greater than 50% in coordination of care (as documented) at patient's floor/unit and/or counseling patient: Coding Level of Care Code 47006 Subseq Hosp Care Lvl 1 Diagnoses Acute CVA (cerebrovascular accident) I63.9 Visual loss H54.7 Dizziness R42 Hypertensive emergency I16.1 Orthostasis I95.1 Chronic kidney disease N18.4 Chronic kidney disease stage: stage 4 (severe) Chronic cerebral ischemia I67.82 Tobacco use disorder F17.200 Time Spent (min) 15 (1) Chronic kidney disease Chronic kidney disease stage: stage 4 (severe) Qualified Code(s): N18.4 - Chronic kidney disease, stage 4 (severe)
[2020-05-04 11:10] LABS: Hematocrit (blood only) 37.5 % (42-52); Hemoglobin 12.3 g/dL (14.0-18.0); Mean Corpuscular Hemoglobin 30.9 pg (25-34); Mean Corpuscular Hgb Conc 32.8 g/dL (32-36); Mean Corpuscular Volume 94.2 fL (80-100); Mean Platelet Volume 9.1 fL (7.4-10.4); Platelet Count 149 K/uL (130-400); RDW Standard Deviation 48.6 fL (36.4-46.3); Red Blood Count 3.98 M/uL (4.7-6.1); White Blood Count 8.11 K/uL (4.8-10.8)
[2020-05-04 11:28] LABS: BUN Creatinine Ratio 14.2 (10-20); Calcium 8.2 mg/dl (8.5-10.1); Creatinine Clr Calc Pharmacy 28.6 ml/min; Est GFR (African American) 33.8; Est GFR (Non-African American) 29.2; Potassium 4.5 mmol/L (3.5-5.1)
[2020-05-04] MEDS ORDERED: lisinopriL 10 MG TAB PO ONE (12:16)
--- NOTE | 2020-05-04 22:36 | Hospitalist Progress Note ---
Date of Service May 04, 2020 Assessment & Plan (1) Dizziness: Hypertensive emergency vs. posterior circulation CVA/stenosis (+/- subclavian steal) vs. secondary to vision loss. Appears improved with lower BP in ER. Appears to be non related to the stroke. Likely from elevated BP. Will continue to manage BP with oral MEDS. It appears patient has been non-complaint with his medications in the past; patient states that this is due to cost. His BP appears to be better controlled with amlodipine and lisinopril. will also hold IVF. May consider adding diuretic as well if BP remains elevated tomorroq. (2) Visual loss: Slow progressive from history - suspected vitreous hemorrhage vs. hypertensive retinopathy. No retinal detachment US available. Initial history of more sudden vision loss and concurrent dizziness as above more consistent with retinal artery occlusion / CVA and given prior PVD he was given clopidogrel in ER. However, given concern for vitreous hemorrhage subsequent doses of this will be held. CT head negative for intracranial hemorrhage. MR brain w/o contrast to r/o stroke/PRES as above. Imaging is negative at this moment. May require opthalmology consult. Ok for patient to continue on ASA. (3) Hypertensive emergency: Very labile BP with hydralazine IV use in ER. Start amlodipine 5mg PO daily (first dose now) as previously discharged on this - this can be obtained for as little as $40 a year without insurance (a fraction of what he spends on cigarettes therefore cost should not be an issue), needs establish with new PCP. (4) Chronic kidney disease: Cr 2.83, last labs in April with Cr 2.45. Will give IV fluids overnight and repeat with AM labs (5) PVD (peripheral vascular disease): Continue ASA, lipid panel in AM to assess need for statin (6) COPD (chronic obstructive pulmonary disease): No current exacerbation. (7) Tobacco use disorder: Smoking cessation advised. Declines nicotine patch Admission and Anticipated Discharge Date Admission Date: May 02, 2020 Subjective 64 yo male reports feeling well. Patient has no new complaints at this time Review of Systems Review of Systems: All systems reviewed & are unremarkable except as noted in HPI & below Physical Exam Physical Exam: Constitutional: well developed, + thin and + frail appearing; + not well nourished and no acute distress Eyes: + anicteric sclerae, PERRL, o conjunctival abnormality, no periorbital abnormality, pupils not irregular, no EOM movement deficit, no nystagmus and no papilledema ENMT: external ear and nose normal, oropharynx normal Neck: trachea midline, no thyromegaly Respiratory: normal respiratory effort and + prolonged expiratory phase; no respiratory distress Cardiovascular: Rate/Rhythm: regular rate and regular rhythm Heart Sounds: no murmur Vessels: no JVD Extremities: + abnormal capillary refill (6-7s in feet, bilateral equal, no central cyanosis), no calf tenderness and no pedal edema Gastrointestinal (Abdomen): normal bowel sounds, soft, nontender, no hepatosplenomegaly Musculoskeletal: no cyanosis or clubbing, extremities motor strength 5/5 Skin: no rashes, warm and dry Neurologic: moves all extremities and awake; no focal motor deficits and not confused Speech / Cognition: normal speech Psychiatric: Orientation: alert and oriented x 3 Affect: euthymic affect Genitourinary: no CVA tenderness Lymphatic: no cervical or axillary lymphadenopathy Results & Data Results & Data ([facility]) Vital Signs (Past 12 Hours) Vital Signs Temp Pulse Pulse Resp BP BP Pulse Ox 05/04/20 19:00 36.9 C 65 18 166/90 H 96 05/04/20 16:00 65 05/04/20 15:44 36.7 C 62 20 194/105 H 97 05/04/20 11:37 36.4 C L 64 18 195/101 H 96 PG Care Time/CCT Total # of Minutes Spent Total Time Spent with Patient: Total time spent is greater than 50% in coordination of care (as documented) at patient's floor/unit and/or counseling patient: Coding Level of Care Code 43436 Subseq Hosp Care Lvl 2 Diagnoses Dizziness R42 Visual loss H54.7 Hypertensive emergency I16.1 Chronic kidney disease N18.4 Chronic kidney disease stage: stage 4 (severe) PVD (peripheral vascular disease) I73.9 COPD (chronic obstructive pulmonary disease) J44.9 Tobacco use disorder F17.200 Time Spent (min) 25 (1) Chronic kidney disease Chronic kidney disease stage: stage 4 (severe) Qualified Code(s): N18.4 - Chronic kidney disease, stage 4 (severe)
[2020-05-05] MEDS: AMLODIPINE BESYLATE 5 MG TAB PO SCH (08:28)
[2020-05-05] MEDS: ASPIRIN 81 MG ECTAB PO SCH (08:28)
[2020-05-05 08:48] LABS: Calcium 8.7 mg/dl (8.5-10.1); Est GFR (African American) 33.1; Est GFR (Non-African American) 28.6; Potassium 4.4 mmol/L (3.5-5.1)
[2020-05-05] MEDS ORDERED: lisinopriL 10 MG TAB PO SCH (12:00)
[2020-05-05] MEDS ORDERED: STROKE PATIENT DISCHARGE STA (12:53)
--- NOTE | 2020-05-13 12:08 | Discharge Summary ---
Date of Service May 05, 2020 Admission HPI Per Admitting Provider Dalton Reyes is a 64-year-old male who presents to the ER with lightheadedness and dizziness intermittently but progressively worse over the last 2 weeks. Worse when he lifts his arms up to reach coffee with either hand. No room spinning. No change with head movement. Denies this is vertiginous. He reports having similar episodes when he came in with high blood pressure and was diagnosed with pneumonia during his last admission in January 2019. He was concerned his blood pressure was getting elevated again after stopping his blood pressure medication 6 to 12 months ago. He denies any prior history of stroke or heart attack. 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 Previously on aspirin and Plavix although he tells me he could not afford the Plavix so he stopped this. He reports compliance with aspirin 81 mg p.o. daily. He is unsure why is not on a statin. No known history of irregular heart rate or atrial fibrillation/flutter. The lightheadedness and dizziness are his main reasons for coming to the ER however he also has ongoing painless vision loss. He has almost complete vision loss in his right eye progressively worse over the last 1 month; he can now only see light movement in this eye. He has generalized vision blurriness in his left eye but is progressively been getting worse over the last 3 weeks. He denies any red hue, floaters, flashing lights, conjunctival injection or eye pain. Initially reported the symptoms came on suddenly but on further questioning it appears this is more of a gradual onset. He reports 3 months ago his vision was completely normal. He has not seen an sales and marketing engineer regarding this although he believes previously he was told he has cataracts. Known COPD for which he was hospitalized in January 2019 with concurrent pneumonia. Spiriva was unaffordable so he stopped this. He reports using his albuterol a few times a week but no recent exacerbation. Patient has a history of noncompliance with medication. He continues to smoke however he is actively trying to quit and is now down to less than 1 pack a day. Previous recorded history of EtOH abuse however he reports no alcohol in the last 8 years and prior to this will drink a sixpack every now and again no daily drinking. He denies any illicit substance use. Principal Diagnosis Dizziness Discharge Exam Constitutional: well developed, + thin and + frail appearing; + not well nourished and no acute distress Eyes: + anicteric sclerae, PERRL, or conjunctival abnormality, no periorbital abnormality, pupils not irregular, no EOM movement deficit, no nystagmus and no papilledema ENMT: external ear and nose normal, oropharynx normal Neck: trachea midline, no thyromegaly Respiratory: normal respiratory effort and + prolonged expiratory phase; no respiratory distress Cardiovascular: Rate/Rhythm: regular rate and regular rhythm Heart Sounds: no murmur Vessels: no JVD Extremities: + abnormal capillary refill (6-7s in feet, bilateral equal, no central cyanosis), no calf tenderness and no pedal edema Gastrointestinal (Abdomen): normal bowel sounds, soft, nontender, no hepatosplenomegaly Musculoskeletal: no cyanosis or clubbing, extremities motor strength 5/5 Skin: no rashes, warm and dry Neurologic: moves all extremities and awake; no focal motor deficits and not confused Speech / Cognition: normal speech Psychiatric: Orientation: alert and oriented x 3 Affect: euthymic affect Genitourinary: no CVA tenderness Lymphatic: no cervical or axillary lymphadenopathy Discharge Data Allergies Allergy/AdvReac Type Severity Reaction Status Date / Time No Known Allergies Allergy Unknown Verified 05/02/20 18:56 Consultations 05/02/20 18:39 ED Decision to Admit Stat 05/03/20 00:12 Consult Case Management - Discharge Planning Routine Consult Neurology Routine Ordered Studies 05/02/20 17:17 CT head/brain wo con Stat 05/02/20 22:09 MR brain wo con Routine 05/03/20 00:08 US carotid doppler BI Routine 05/03/20 00:13 MR angio head wo con Routine Hospital Course (1) Dizziness: Hypertensive emergency vs. posterior circulation CVA/stenosis (+/- subclavian steal) vs. secondary to vision loss. Appears improved with lower BP in ER. Appears to be non related to the stroke. Likely from elevated BP. Will continue to manage BP with oral MEDS. It appears patient has been non-complaint with his medications in the past; patient states that this is due to cost. His BP appears to be better controlled with amlodipine and lisinopril. (2) Visual loss: Slow progressive from history - suspected vitreous hemorrhage vs. hypertensive retinopathy. No retinal detachment US available. Initial history of more sudden vision loss and concurrent dizziness as above more consistent with retinal artery occlusion / CVA and given prior PVD he was given clopidogrel in ER. However, given concern for vitreous hemorrhage subsequent doses of this will be held. CT head negative for intracranial hemorrhage. MR brain w/o contrast to r/o stroke/PRES as above. Imaging is negative at this moment. May require opthalmology consult. Ok for patient to continue on ASA. (3) Hypertensive emergency: Very labile BP with hydralazine IV use in ER. Start amlodipine 5mg PO daily (first dose now) as previously discharged on this - this can be obtained for as little as $40 a year without insurance (a fraction of what he spends on cigarettes therefore cost should not be an issue), needs establish with new PCP. (4) Chronic kidney disease: Cr 2.83, last labs in April with Cr 2.45. Will give IV fluids overnight and repeat with AM labs (5) PVD (peripheral vascular disease): Continue ASA, will hold statin as FLP is pretty good. given how non compliant patient is, will limit amount of new medication. will defer further management to his PCP (6) COPD (chronic obstructive pulmonary disease): No current exacerbation. (7) Tobacco use disorder: Smoking cessation advised. Declines nicotine patch Total Time Total Time Spent Total Time Spent (In Minutes): 32 Total Time Includes: Examination of the Patient, Discharge Planning and Medication Reconciliation Discharge Plan Discharge Items Patient Disposition: Home - Self-Care Reason For Visit: HYPERTENSIVE EMERGENCY, BILATERAL VISION LOSS/ Discharge Diagnosis: hypertensive emergency Condition on Discharge: Good Activity: Resume your previous activity Non-emergency contact: Primary Care Provider Call non-emergency contact if: you have any medication questions Follow-up/Referrals: Eli Samayoa O.D. [Outside Practitioners] - 05/05/20 2:00 pm (You have an appointment with Dr. Samayoa today at 2:00. ) PCP,NO [Primary Care Provider] - Diet: Heart Healthy Addtl Attending Provider Instructions: Risk Factors for Stroke: You can reduce your chances of stroke by working with your medical provider to adopt a healthy lifestyle. Some specific ways to lower your chance of stroke are: * If you are a smoker, now is the time to stop smoking cigarettes * If you are diabetic, improve the control of your blood sugars * Avoid excessive amounts of alcohol * Control high blood pressure * Lose weight if you are overweight * Be sure to lead an active lifestyle * Eat a healthy diet low in salt, cholesterol and fat You should know about other risk factors for stroke that you are unable to control. These include: * Age 55 years or older * Male gender * Certain racial groups: , or / * Family History of Stroke, Mini stroke or Heart Attack * Sickle Cell Disease Follow Up: It is important for you to keep your follow up appointments with your medical provider. Who to Call and When: Medical Emergencies: Call 911 immediately if you experience any of the [facility] warning signs and symptoms of Stroke: * Sudden numbness or weakness of the face, arm or leg, especially on one side of the body * Sudden confusion, trouble speaking or understanding * Sudden trouble seeing in one or both eyes * Sudden trouble walking, dizziness, loss of balance or coordination * Sudden severe headache with no cause Do not delay calling 911 if you experience any warning signs or symptoms of a stroke. Delay in seeking medical attention may affect what treatments can be given to you. . Pending Studies at Discharge: No Stand-Alone Forms: My [facility], Smoking Cessation Medications and DC Order Prescriptions: New amlodipine [Norvasc] 5 mg Tablet 5 mg PO QPM Qty: 30 RF: 0 lisinopril 10 mg Tablet 10 mg PO QAM Qty: 30 RF: 0 Continued Serevent Diskus 50 mcg/dose blister with device 1 puffs INH BID PRN (Reason: Shortness Of Breath Or Wheezing) RF: 0 aspirin 81 mg Tablet,Delayed Release (Dr/Ec) 81 mg PO QAM RF: 0 albuterol sulfate 90 mcg/actuation HFA aerosol inhaler 2 puffs INH Q6H PRN (Reason: shortness of breath or wheezing) Qty: 6.7 RF: 0 Discharge Orders: Discharge Order (Routine); Ordered 05/05/20 Ordered By: Hector Amos Admission Data Admit Date/Time: 05/02/20 20:42 Attending Provider: Hector Amos Admit Provider: Abran Soriano Primary Care Provider: PCP,NO Other Providers: Abran Soriano ; Arturo Thomson Other Interventions: Discharge Summary Assessment (RN) Last Done: 05/05/20 13:29 Coding Level of Care Code D/C Day Management >30 mins Diagnoses Dizziness R42 Visual loss H54.7 Hypertensive emergency I16.1 Chronic kidney disease N18.4 Chronic kidney disease stage: stage 4 (severe) PVD (peripheral vascular disease) I73.9 COPD (chronic obstructive pulmonary disease) J44.9 Tobacco use disorder F17.200 Time Spent (min) 32
== END 2020-05-05 14:26 | disposition home or self-care (01) | DRG 304 ==
LOC: ED 15:55 → 2N 20:42 → SUATTDRO 20:42 → 2N 21:28

== ENCOUNTER 2020-07-26 13:04 | Inpatient (IN) ==
--- NOTE | 2020-07-26 13:39 | Emergency Department Note ---
History of Present Illness General Chief complaint: Arm Pain Time Seen by Provider: 07/26/20 13:07 Source: patient Mode of arrival: EMS Limitations: no limitations History of Present Illness This patient is a 64-year-old male who presents to the emergency department for evaluation of right arm weakness. The patient states that he slipped and fell in the tub 5 days ago. He believes that he may have hit his head on the right side at that time, but denies any loss of consciousness or significant pain associated with the fall. He denies any other injuries due to the fall. He states that he woke up the next morning, 4 days ago and was unable to move his right arm. He first noticed this when he was trying to pour coffee. He states that the arm feels weak and he is unable to move it. He states that he does have a feeling of [id number] in the arm, but denies any true numbness. He has been able to walk normally and denies any weakness in the legs. He reports chronic vision loss, but denies any acute vision changes, slurred speech or confusion. Patient has a history of a stent in his right lower extremity. He reports having prior TIAs and used to be on Plavix, but has not taken this in about 6 months because his PCP retired. Patient denies any pain at this time. Home Medications Home Medications Medication Instructions Recorded Confirmed Type aspirin 81 mg PO QAM 02/03/19 07/26/20 History albuterol sulfate 2 puffs INH Q6H PRN #6.7 gm 02/08/19 07/26/20 Rx Serevent Diskus 1 puffs INH BID PRN 05/02/20 07/26/20 History amlodipine [Norvasc] 5 mg PO QPM #30 tab 05/05/20 07/26/20 Rx lisinopril 10 mg PO QAM #30 tab 05/05/20 07/26/20 Rx Allergies Allergy/AdvReac Type Severity Reaction Status Date / Time No Known Allergies Allergy Unknown Verified 07/26/20 15:30 Past Med/Surg History Medical History Back pain Chronic kidney disease Baseline creatinine appears to be around 1.9mg/dl COPD (chronic obstructive pulmonary disease) Hypertension Admitted 02/03/19-02/08/19 with COPD exacerbation, found to have HTN urgency. Started on amlodipine 5mg daily the however this was discontinued due to cost Palliative care encounter Pneumonia Secondary malignant neoplasm of brain Tobacco use disorder 60 pack year history (2ppd for decades). 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 Beliefs That Will Affect Care: None marital status: Single Current Living Situation: Significant Other current occupational status: retired current occupation: retired 1 year ago from [employer] Feels Safe at Home: Yes Assistive Devices: Walker Review of Systems A total of 10 systems reviewed and were otherwise negative Physical Exam Vital Signs Vital Signs - 24 hr 07/26/20 13:24 07/26/20 13:30 07/26/20 13:33 Temperature 36.5 C Temperature Source Oral Pulse Rate 72 76 67 Pulse Rate from SpO2 Sensor 72 75 Respiratory Rate 15 12 20 Blood Pressure 199/122 H 197/121 H 197/22 H Blood Pressure Mean 160 160 80 Pulse Oximetry 100 99 99 Oxygen Delivery Method Room Air Sepsis Recent Fever Within 48 Hours No Sepsis New/Unexplained Change in Mental Status N/A Sepsis Action Taken by Nursing No Action Required 07/26/20 14:00 07/26/20 14:15 Temperature Temperature Source Pulse Rate 66 69 Pulse Rate from SpO2 Sensor 69 Respiratory Rate 13 16 Blood Pressure 227/123 H Blood Pressure Mean 152 Pulse Oximetry 99 Oxygen Delivery Method Sepsis Recent Fever Within 48 Hours Sepsis New/Unexplained Change in Mental Status Sepsis Action Taken by Nursing VITALS: Vitals are noted on the nurse's note and reviewed by myself. GENERAL: This is a 64-year-old male, in no acute distress, disheveled appearing. SKIN: The skin was without rashes. No lacerations or abrasions. HEAD: Normocephalic atraumatic. EARS: External auditory canals clear, tympanic membranes pearly neri without erythema or effusion bilaterally. EYES: Pupils equal round and reactive to light and accommodation. Extraocular movements intact. MOUTH: Mucous membranes moist. NECK: Supple without nuchal rigidity. Cervical spine is nontender. HEART: Regular rate and rhythm without murmurs gallops or rubs. LUNGS: Clear to auscultation bilaterally without wheezes, rales or rhonchi. ABDOMEN: Positive bowel sounds x 4. Soft, nontender to palpation. MUSCULOSKELETAL: Right arm eeo officer strength 3/5, left arm 5/5. Patient unable to raise right arm up on his own, but is able to hold it up against gravity for a few seconds. Strength 5/5 in bilateral lower extremities. NEURO: Patient was alert and oriented to person place and time. Distal sensation is intact. No facial droop noted. Course Consultations Consultation #1: Dr. Burks - oncology Dr. Burks recommends giving the patient 12 mg dexamethasone IV x 1, then 4 mg q8h. He agrees with admission and recommends consultation with radiation oncology. Consultation #2: Dr. Soriano - [facility] [place] [facility] hospitalist Administered Medications Acetaminophen (Acetaminophen 325 Mg Tab) 650 mg PO Q4H PRN PRN Reason: pain/fever Stop: 08/25/20 19:31 Last Admin: 07/28/20 21:27 Dose: 650 mg Documented by: [id number] Admin: 07/27/20 23:13 Dose: 650 mg Documented by: [id number] Admin: 07/27/20 05:11 Dose: 650 mg Documented by: [id number] Admin: 07/27/20 01:39 Dose: 650 mg Documented by: [id number] Albuterol (Albuterol Hfa 8 Gm Inhaler) 2 puffs INH Q6H PRN PRN Reason: shortness of breath or wheezin Stop: 08/25/20 19:31 Last Admin: 07/28/20 23:46 Dose: 2 puffs Documented by: [id number] Amlodipine Besylate (Amlodipine Besylate 5 Mg Tab) 5 mg PO QPM JOVANY Stop: 08/25/20 20:59 Last Admin: 07/28/20 20:28 Dose: 5 mg Documented by: [id number] Admin: 07/27/20 22:34 Dose: 5 mg Documented by: [id number] Admin: 07/26/20 23:25 Dose: 5 mg Documented by: [id number] Aspirin (Aspirin 81 Mg Ectab) 81 mg PO QAM [facility] Stop: 08/26/20 08:59 Last Admin: 07/28/20 08:50 Dose: 81 mg Documented by: [id number] Admin: 07/27/20 09:11 Dose: 81 mg Documented by: [id number] Hydralazine HCl (Hydralazine Hcl 20 Mg/Ml Vial) 10 mg IV Q4H PRN PRN Reason: Hypertension Stop: 08/25/20 19:31 Last Admin: 07/27/20 17:45 Dose: 10 mg Documented by: [id number] Admin: 07/26/20 23:26 Dose: 10 mg Documented by: [id number] Sodium Chloride (Nss 1000ml) 1,000 mls @ 75 mls/hr IV .[id number] [facility] Stop: 08/25/20 19:31 Last Admin: 07/28/20 12:50 Dose: 75 mls/hr Documented by: [id number] Infusion: 07/28/20 11:55 Dose: 75 mls/hr Documented by: [id number] Infusion: 07/28/20 05:20 Dose: 75 mls/hr Documented by: [id number] Admin: 07/27/20 22:34 Dose: 75 mls/hr Documented by: [id number] Infusion: 07/27/20 22:31 Dose: 75 mls/hr Documented by: [id number] Admin: 07/27/20 09:11 Dose: 75 mls/hr Documented by: [id number] Infusion: 07/27/20 09:11 Dose: 75 mls/hr Documented by: [id number] Admin: 07/26/20 22:20 Dose: 75 mls/hr Documented by: [id number] Dexamethasone Sodium Phosphate (4 mg/ Syringe) 1 mls @ 1 mls/min IV Q8H [facility] Stop: 08/26/20 00:00 Last Admin: 07/28/20 23:11 Dose: 1 mls/min Documented by: [id number] Admin: 07/28/20 16:41 Dose: 1 mls/min Documented by: [id number] Admin: 07/28/20 08:50 Dose: 1 mls/min Documented by: [id number] Admin: 07/27/20 23:13 Dose: 1 mls/min Documented by: [id number] Admin: 07/27/20 17:41 Dose: 1 mls/min Documented by: [id number] Admin: 07/27/20 09:10 Dose: 1 mls/min Documented by: [id number] Admin: 07/27/20 00:08 Dose: 1 mls/min Documented by: [id number] Olodaterol (Olodaterol Hcl 2.5mcg/Actuation 60 Puffs/Inhaler) 2 puffs INH DAILY PRN; Protocol PRN Reason: Shortness Of Breath Or Wheezin Stop: 08/25/20 19:41 Last Admin: 07/28/20 21:23 Dose: 2 puffs Documented by: [id number] Discontinued Medications Dexamethasone (Dexamethasone Sod Inj 10 Mg/Ml Vial) 12 mg IV NOW ONE Stop: 07/26/20 14:47 Last Admin: 07/26/20 15:13 Dose: 12 mg Documented by: [id number] Gadobutrol (Gadobutrol 65ml Vial) 5.5 ml IV ONCE ONE Stop: 07/27/20 16:03 Last Admin: 07/27/20 16:03 Dose: 5.5 ml Documented by: [id number] Hydralazine HCl (Hydralazine Hcl 20 Mg/Ml Vial) 10 mg IV NOW STA Stop: 07/26/20 17:01 Last Admin: 07/26/20 17:34 Dose: 10 mg Documented by: [id number] Lisinopril (Lisinopril 10 Mg Tab) [facility] [place] Stop: 08/26/20 08:59 Last Admin: 07/27/20 09:11 Dose: 10 mg Documented by: [id number] Medical Decision Making Differential Diagnosis Infection, dehydration, metabolic abnormality, hypo/hyperglycemia, electrolyte disturbance, anemia, hypoxia, cardiac sources, intracerebral event, toxicologic, neurologic, as well as other pathologies. Medical Records Attestation: I reviewed the patient's medical records. Home Medications Current Medication List: was personally reviewed by me Laboratory Data Attestation: I reviewed the patient's lab results. Result diagrams: 07/26/20 14:00 07/28/20 08:34 Lab Results 07/26/20 07/26/20 07/26/20 Range/Units 14:00 14:00 14:00 WBC 6.66 (4.8-10.8) K/uL RBC 3.77 L (4.7-6.1) M/uL Hgb 11.3 L (14.0-18.0) g/dL Hct 35.2 L (42-52) % MCV 93.4 (80-100) fL MCH 30.0 (25-34) pg MCHC 32.1 (32-36) g/dL RDW Std Deviation 50.7 H (36.4-46.3) fL RDW Coeff of Contreras 15.0 H (11.5-14.5) % Plt Count 238 (130-400) K/uL MPV 9.3 (7.4-10.4) fL Immature Gran % (Auto) 0.2 % Neut % (Auto) 70.5 % Lymph % (Auto) 15.8 % Whiteside % (Auto) 8.6 % Eos % (Auto) 4.7 % Baso % (Auto) 0.2 % Neut # (Auto) 4.71 (1.4-6.5) K/uL Lymph # (Auto) 1.05 L (1.2-3.4) K/uL Whiteside # (Auto) 0.57 (0.11-0.59) K/uL Eos # (Auto) 0.31 (0-0.5) K/uL Baso # (Auto) 0.01 (0-0.2) K/uL Immature Gran # (Auto) 0.01 (0.00-0.02) K/uL PT 11.1 (9.0-12.0) Seconds INR 1.1 (0.9-1.1) APTT 32.7 H (21.0-31.0) Seconds PTT Ratio 1.2 Sodium 142 (136-145) mmol/L Potassium 5.2 H (3.5-5.1) mmol/L Chloride 115 H (98-107) mmol/L Carbon Dioxide 23 (21-32) mmol/L Anion Gap 4.0 (3-11) BUN 56 H (7-18) mg/dl Creatinine 3.25 H (0.6-1.4) mg/dl Est Cr Clr Drug Dosing 16.9 ml/min Est GFR ( Amer) 21.9 Est GFR (Non-Af Amer) 18.9 BUN/Creatinine Ratio 17.2 (10-20) Glucose 79 (70-99) mg/dl Calcium 8.2 L (8.5-10.1) mg/dl Magnesium 2.1 (1.8-2.4) mg/dl Total Bilirubin 0.3 (0.2-1) mg/dl AST 7 L (15-37) U/L ALT 9 L (12-78) U/L Alkaline Phosphatase 109 (45-117) U/L Total Protein 7.0 (6.4-8.2) gm/dl Albumin 3.1 L (3.4-5.0) gm/dl Globulin 3.9 (2.5-4.0) gm/dl Albumin/Globulin Ratio 0.8 L (0.9-2) Imaging Data Attestation: I personally reviewed and interpreted this imaging study as follows: Radiologist's Impression: CT head/brain wo con FINDINGS: There is a round centrally hyperdense lesion within the left frontal lobe near the vertex, 1.8 x 1.6 cm with large amount of surrounding vasogenic edema resulting in local gyral expansion and sulcal effacement. There is no partial midline shift or hydrocephalus. Cortically-based hemorrhagic focus of the anterior left frontal lobe measures 7 mm, image 23 series 2. Mild patchy white matter hypodensities suggest chronic microvascular ischemic disease. No acute territorial infarct. Mastoid air cells and middle ear cavities are clear. Mild mucoperiosteal thickening of the maxillary sinuses. Orbits, skull and soft tissues are within normal limits. IMPRESSION: 1. There are two hyperdense lesions within the left frontal lobe, largest of which measures 1.8 cm suggestive of hemorrhagic intracranial metastasis. The largest lesion demonstrates a large amount of surrounding vasogenic edema resulting in local sulcal effacement with gyral expansion. These findings are new from May 02, 2020. Correlation with imaging of the chest recommended to evaluate for possible primary pulmonary neoplasm. 2. No midline shift. CT SCAN OF THE CERVICAL SPINE IMPRESSION: 1. There is no evidence of fracture or subluxation involving the cervical spine. 2. Advanced emphysema. ECG Data Attestation: I personally reviewed and interpreted this ECG as follows: Indication: + weakness Rate (beats per minute): 66 Rhythm: + normal sinus ECG Intervals/blocks: + Normal QRS ECG ST segments: + Normal ST segments Change: the following changes noted (T wave abnormalities resolved) MDM Narrative The patient is a 64-year-old male who presents today complaining of right arm weakness which started 4 days ago. Patient did have a recent fall but denies significant head injury or injury to the right arm at that time. Patient is noticeably weak on exam. Labs fairly unremarkable, with a mild anemia, no leukocytosis or concerning electrolyte abnormalities. CT of the head and C-spine were performed given this weakness and patient's history of recent trauma. CT of the head was read by radiology and found to have signs of brain metastasis. On review of the patient's records, he had been seen last year with a chest CT concerning for malignancy. He did have an appointment with pulmonology, but never followed up after this. 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 Oncology was consulted and recommended starting Decadron and consulting radiation oncology. 12 mg of Decadron was given per their recommendations and case discussed [facility]. Impression & Plan Brain lesion, Upper extremity weakness, Vasogenic brain edema Discharge Plan Visit Data Chief Complaint: Arm Pain ED Provider: Lorenzo Wilson ED Midlevel Provider: Lo Dang Discharge Problem: Brain lesion, Upper extremity weakness, Vasogenic brain edema Patient Disposition: Admitted As Inpatient Discharge Instructions Interventions: ED Discharge Assessment Last Done: 07/26/20 18:54
[2020-07-26 14:12] LABS: Basophils # (auto) 0.01 K/uL (0-0.2); Basophils % (auto) 0.2 %; Eosinophils # (auto) 0.31 K/uL (0-0.5); Eosinophils % (auto) 4.7 %; Hematocrit (blood only) 35.2 % (42-52); Hemoglobin 11.3 g/dL (14.0-18.0); Immature Granulocytes # (auto) 0.01 K/uL (0.00-0.02); Immature Granulocytes % (auto) 0.2 %; Lymphocytes # (auto) 1.05 K/uL (1.2-3.4); Lymphocytes % (auto) 15.8 %; Mean Corpuscular Hgb Conc 32.1 g/dL (32-36); Mean Corpuscular Volume 93.4 fL (80-100); Mean Platelet Volume 9.3 fL (7.4-10.4); Monocytes # (auto) 0.57 K/uL (0.11-0.59); Monocytes % (auto) 8.6 %; Neutrophils # (auto) 4.71 K/uL (1.4-6.5); Neutrophils % (auto) 70.5 %; Platelet Count 238 K/uL (130-400); RDW Standard Deviation 50.7 fL (36.4-46.3); Red Blood Count 3.77 M/uL (4.7-6.1); White Blood Count 6.66 K/uL (4.8-10.8)
[2020-07-26 14:22] LABS: INR 1.1 (0.9-1.1); Partial Thromboplastin Ratio 1.2; Partial Thromboplastin Time 32.7 Seconds (21.0-31.0); Prothrombin Time 11.1 Seconds (9.0-12.0)
--- NOTE | 2020-07-26 14:23 | CT Scan Report ---
CT SCAN OF THE CERVICAL SPINE CLINICAL HISTORY: Fall. Right arm weakness. COMPARISON STUDY: Radiographs of the cervical spine dated 05/22/2019. TECHNIQUE: CT scan of the cervical spine is performed from the skull base to the upper thoracic spine . Images are reviewed in the axial, sagittal, and coronal planes. IV contrast was not administered fo r this examination. A dose lowering technique was utilized adhering to the principles of ALARA. CT DOSE: 1048.02 mGy.cm FINDINGS: Skeletal structures: The skeletal structures are osteopenic. There is no evidence of fracture or subl uxation involving the cervical spine. Vertebral body height and alignment are maintained. Anterior os teophytes are seen throughout. The odontoid process and lateral masses are intact. The atlantoaxial a rticulation is preserved noting advanced productive degenerative change. The spinous processes appear intact. Intervertebral discs: There is mild disc space narrowing at C5-C6 and C6-C7. Central canal: Posterior disc osteophyte complexes are seen at all cervical levels, greatest at C5-C6 and C6-C7. This may contribute to mild multilevel acquired compromise of the central canal. Soft tissues: The prevertebral and paraspinous soft tissues are within normal limits. There is athero sclerotic calcification of the carotid bulbs. Calvarium: The visualized calvarium at the skull base appears intact. Brain parenchyma: Partially visualized brain parenchyma the skull base is within normal limits. Sinuses and mastoids: There is trace mucosal thickening within the maxillary antra. The mastoid air c ells are well pneumatized. Lung apices: Advanced emphysematous change is noted in the upper lobes. IMPRESSION: 1. There is no evidence of fracture or subluxation involving the cervical spine. 2. Advanced emphysema. ACT 112: Negative or not required by law. Electronically signed by: Soy Wong M.D. 07/26/2020 2:21 PM
--- NOTE | 2020-07-26 14:29 | CT Scan Report ---
CT head/brain wo con CLINICAL HISTORY: 64 years-old Male with right arm weakness, recent fall. Acute right arm weakness w ith recent fall TECHNIQUE: Multiple axial CT images of the head were obtained without contrast. A dose lowering tech nique was utilized adhering to the principles of ALARA. COMPARISON: CT cervical spine of same day, head CT 05/02/2020, chest CT 02/03/2019 FINDINGS: There is a round centrally hyperdense lesion within the left frontal lobe near the vertex, 1.8 x 1.6 cm with large amount of surrounding vasogenic edema resulting in local gyral expansion and sulcal eff acement. There is no partial midline shift or hydrocephalus. Cortically-based hemorrhagic focus of th e anterior left frontal lobe measures 7 mm, image 23 series 2. Mild patchy white matter hypodensities suggest chronic microvascular ischemic disease. No acute territorial infarct. Mastoid air cells and middle ear cavities are clear. Mild mucoperiosteal thickening of the maxillary sinuses. Orbits, skull and soft tissues are within normal limits. IMPRESSION: 1. There are two hyperdense lesions within the left frontal lobe, largest of which measures 1.8 cm king ggestive of hemorrhagic intracranial metastasis. The largest lesion demonstrates a large amount of king rrounding vasogenic edema resulting in local sulcal effacement with gyral expansion. These findings a re new from May 02, 2020. Correlation with imaging of the chest recommended to evaluate for possib le primary pulmonary neoplasm. 2. No midline shift. Findings were discussed with physician mortgage assistant Lo Dang on 07/26/2020 at 2:23 PM. ACT 112: Negative or not required by law. The above report was generated using voice recognition software. It may contain grammatical, syntax o r spelling errors. Electronically signed by: Jaguar Jenkins M.D. 07/26/2020 2:27 PM
[2020-07-26 14:32] LABS: Albumin Level 3.1 gm/dl (3.4-5.0); BUN Creatinine Ratio 17.2 (10-20); Calcium 8.2 mg/dl (8.5-10.1); Creatinine Clr Calc Pharmacy 16.9 ml/min; Est GFR (African American) 21.9; Est GFR (Non-African American) 18.9; Magnesium 2.1 mg/dl (1.8-2.4); Potassium 5.2 mmol/L (3.5-5.1)
[2020-07-26 14:34] LABS: Albumin Globulin Ratio 0.8 (0.9-2); Bilirubin,Total 0.3 mg/dl (0.2-1); Globulin 3.9 gm/dl (2.5-4.0)
[2020-07-26] MEDS ORDERED: DEXAMETHASONE SOD INJ 10 MG/ML VIAL IV ONE (14:46)
[2020-07-26] MEDS ORDERED: hydrALAZINE HCL 20 MG/ML VIAL IV STA (17:00)
--- NOTE | 2020-07-26 17:19 | History & Physical Report ---
Date of Service July 26, 2020 Assessment & Plan (1) Brain lesion: * New brain lesions on CT as follows: * 1. There are two hyperdense lesions within the left frontal lobe, largest of which measures 1.8 cm suggestive of hemorrhagic intracranial metastasis. The largest lesion demonstrates a large amount of surrounding vasogenic edema resulting in local sulcal effacement with gyral expansion. These findings are new from May 02, 2020. Correlation with imaging of the chest recommended to evaluate for possible primary pulmonary neoplasm. * 2. No midline shift. * Findings concerning in the individual with possible underlying pulmonary lesion seen during evaluation in 2019. Patient never completed recommended follow-up per pulmonary recommendations. Had been asymptomatic to this point. Concerns are for possible primary lung CA with metastatic spread. * Will consult pulmonary for recommendations regarding utility of bronchoscopy for possible cancer typing. Will add repeat CT chest in the process. * Per recommendations from hematology/oncology: * Received 12 mg Decadron IV initially. We will continue 4 mg every 8 hours at this point. * Will consult radiation oncology. * Unfortunately, I am not convinced the patient is aware of the gravity of the situation. I did have a lengthy discussion with him regarding his wishes for ongoing care at this point. Clinically, the patient is very well and has full range of motion of all other extremities except the RIGHT upper extremity. He is able to mentate and make decisions for himself appropriately. At this point, he states that he would wish to be seen by consulting staff, and if they felt that his condition was not manageable, he may consider transitioning to a more comfort type management as he is seen his father uncomfortably in the past and does not wish to go down the same path. On this note, I will consult palliative care to help as well. (2) Pulmonary lesion: * As seen on prior imaging. * Will repeat CT today with new findings of brain lesions. (3) Upper extremity weakness: * CT cervical spine without any acute findings. * Findings may be consistent with neurologic effects of new brain lesions in the LEFT frontal lobe. (4) COPD (chronic obstructive pulmonary disease): * Continue with home inhalers. * Supplemental O2 as needed. (5) Chronic kidney disease: * Appears to be slightly elevated from his baseline. * May be related to chronic hypertension. * Gentle hydration with IV fluids. * Plan to correct hypertension. (6) Tobacco use disorder: * Continue to encourage smoking cessation. (7) Hypertension: * Given all other conversations, question the patient's compliance. * Will treat with hydralazine as needed. * Continue home medications as needed. (8) Hypertensive urgency: * Treat with hydralazine as needed. * Continue home medications. (9) Multiple pulmonary nodules: * Repeat CT today. * Appreciate pulmonary recommendations. (10) PVD (peripheral vascular disease): * Will hold off on anticoagulation in the setting of new brain lesions and findings of hemorrhagic intracranial metastases. History of Present Illness Primary Care Provider: NO PCP Patient is a 64-year-old male with a significant past medical history of kidney disease, COPD, pneumonia, peripheral arterial disease status post vascular intervention to the RIGHT lower extremity, hypertension. Patient was seen in this facility in April 2019 and found to have concerns on chest CT for possible malignancy. He did follow-up soon after with pulmonary as set up by emergency provider. During the visit recommendation for repeat CT of the chest with decision making regarding biopsy versus continued close monitoring were to be made at that point. The patient did not follow-up with the scheduled CT. Patient reports that he did not follow-up because he was too busy with work. He was seen at this facility for CVA-like symptoms in April of this past year. During this evaluation, the patient had imaging studies performed of the brain including an MRI. MRI demonstrated acute CVA, but no metastatic disease. Patient presented to the emergency department today with complaints of weakness to the RIGHT upper extremity. Patient reports that he did fall in his bathtub approximately 5 days ago and landed on the affected side. He had absolutely no pain after the event. He did not lose consciousness. He reports not striking his head. Approximately 3 days ago, the patient complains that he was unable to use his RIGHT upper extremity. He can barely move his fingers, but cannot lift his arm. He reports minimal feeling and describes pins and needle sensation to the arms. CT scan of the head demonstrated new to hyperdense lesions within the left frontal lobe which are concerning for metastatic spread. ER provider did speak with oncologist. Orders were placed for 12 mg IV Decadron with 4 mg every 8 hours to be continued. Recommendations for consultation with radiation oncology per hematology oncology. Patient with persistent renal disease. Upon evaluation in the emergency department, the patient is awake, alert, and oriented. He denies any complaints of pain at this time. He reports he cannot move his RIGHT upper extremity, but otherwise he is able to ambulate without issue. He denies any complaints of headaches. He is question about medical follow-up and he reports that he simply could not make the time. I did discuss with the patient the concerning imaging findings. He does wish to be evaluated for possible treatment at this time and can discuss ongoing management after this point. Allergies Allergy/AdvReac Type Severity Reaction Status Date / Time No Known Allergies Allergy Unknown Verified 07/26/20 15:30 Home Medications Home Medications Medication Instructions Recorded Confirmed Type aspirin 81 mg PO QAM 02/03/19 07/26/20 History albuterol sulfate 2 puffs INH Q6H PRN #6.7 gm 02/08/19 07/26/20 Rx Serevent Diskus 1 puffs INH BID PRN 05/02/20 07/26/20 History amlodipine [Norvasc] 5 mg PO QPM #30 tab 05/05/20 07/26/20 Rx lisinopril 10 mg PO QAM #30 tab 05/05/20 07/26/20 Rx Past Med/Surg History Medical History (Updated 07/27/20 @ 10:01 by Rui Healy MD) Back pain Chronic kidney disease Baseline creatinine appears to be around 1.9mg/dl COPD (chronic obstructive pulmonary disease) Hypertension Admitted 02/03/19-02/08/19 with COPD exacerbation, found to have HTN urgency. Started on amlodipine 5mg daily the however this was discontinued due to cost Pneumonia Secondary malignant neoplasm of brain Tobacco use disorder 60 pack year history (2ppd for decades). Precontemplative Vasogenic brain edema Surgical History S/P arterial stent Unknown date; right leg; unknown location Family History Father , age 79 of pulmonary issues Lung cancer Lung disease Mother , age 53 of cancer (uncertain type but maybe lung) Hypertension Cancer Other No significant family history Social History Smoking Status: Current every day smoker Tobacco Type: Cigarettes Years Smoked: 40; Cigarettes Per Day: 20; Second Hand Exposure: Yes; Do You Dip or Chew Tobacco: No; Tobacco Cessation Education Requested by Patient: No Hx Alcohol Use: No Hx Substance Use: No Preferred Language: Scottish Communication Ability: Effective 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 All else were negative. Physical Exam Physical Exam: VITAL SIGNS - Vital signs and nursing notes were reviewed. GENERAL - 64-year-old male appearing his stated age who is in no acute distress. Communicates well with provider and answers questions appropriately. HEAD - Normocephalic, Atraumatic. No Stone's Sign or Raccoon's Eyes. No depressed skull fractures palpable. EYES - PERRL with EOMI bilaterally. Sclera anicteric. Palpebral conjunctiva pink and moist with no injection noted. EARS - No deformities of external structures noted on gross examination bilaterally. NOSE - Midline and without cyanosis. Septum midline without deviation or septal hematoma noted. MOUTH/OROPHARYNX - Without perioral cyanosis. Buccal mucosa pink and moist and without leukoplakia. Tongue midline with equal elevation of palate bilaterally. Poor dentition noted. NECK - Neck with FROM. Supple to palpation. No lymphadenopathy noted. No nuchal rigidity. LUNGS - Chest wall symmetric without accessory muscle use, intercostals retractions, or central cyanosis. Normal vesicular breath sounds CTA B/L. No wheezes, rales, or rhonchi appreciated. CARDIAC - RRR with S1/S2. No murmur, rubs, or gallops appreciated. ABDOMEN - Abdominal contour flat without pulsations or visible masses. BS normoactive all four quadrants. No tenderness, palpable masses, hepatosplenomegaly, or ascites noted. EXTREMITIES - No pretibial edema present. +3/5 radial and dorsalis pedis pulses palpated throughout. Profound weakness of the entire RUE w/ limited ability to move digits only. LUE/RLE/LLE all w/ +5/5 strenght. NEUROLOGIC - Cranial nerves II through XII grossly intact. Sensory intact to light touch throughout. Patellar reflexes +2/4. RUE weakness as above. PSYCH - A&Ox3 and cooperates fully with examiner. Pt is very pleasant and interacts well with examiner. Results & Data Results & Data ([facility]) Vital Signs (Past 12 Hours) Vital Signs Temp Pulse Resp BP Pulse Ox 07/26/20 15:10 66 14 196/122 H 99 07/26/20 14:45 70 13 100 07/26/20 14:15 69 16 227/123 H 99 07/26/20 14:00 66 13 07/26/20 13:33 36.5 C 67 20 197/22 H 99 07/26/20 13:30 76 12 197/121 H 99 07/26/20 13:24 72 15 199/122 H 100 Supervising Physician Co-Signing Physician Notes I personally saw and examined the patient. I verified all tristan points and agree with DADA Beatty with the following exceptions and/or additions: 64 year old male with recent CVA and prior pulmonary nodule presents to the ER present to the ER with isolated right arm weakness over the last 4 days. ER workup concerning for bronchogenic carcinoma in his right lower lobe with concerning metastatic spread to his brain. He took the medications for his blood pressure prescribed on discharge in April but then never followed up for continued prescriptions. O/E CN2-> 12 intact, notably has chronic vision loss (previously suspected hy pertensive retinopathy and did not follow up with ophthalmology. A/P Suspected metastatic bronchogenic carcinoma - Given his prior non-compliance with blood pressure medications and poor follow up care discussed his goals of care with the patient. He would like to gather as much information as possible from different specialties before deciding with his longterm partner how he wishes to proceed. Will start on Dexamethasone to reduce edema with consultation placed with oncology, radiation, pulmonology and palliative care to aid decision making. CKD stage 4 - suspect secondary to hypertensive nephrosclerosis. Appears to be worse than previous. Stop lisinopril. Monitor with AM labs. PG Care Time/CCT Total # of Minutes Spent Total Time Spent with Patient: Total time spent is greater than 50% in coordination of care (as documented) at patient's floor/unit and/or counseling patient: Coding Level of Care Code 15283 Initial Inpt Care Lvl 3 Diagnoses Brain lesion G93.9 Pulmonary lesion J98.4 Upper extremity weakness R29.898 COPD (chronic obstructive pulmonary disease) J44.9 COPD type: unspecified COPD Chronic kidney disease N18.4 Chronic kidney disease stage: stage 4 (severe) Tobacco use disorder F17.200 Hypertension I10 Hypertensive urgency I16.0 Multiple pulmonary nodules R91.8 PVD (peripheral vascular disease) I73.9 Time Spent (min) 55 (1) Chronic kidney disease Chronic kidney disease stage: stage 4 (severe) Qualified Code(s): N18.4 - Chronic kidney disease, stage 4 (severe) (2) COPD (chronic obstructive pulmonary disease) COPD type: unspecified COPD Qualified Code(s): J44.9 - Chronic obstructive pulmonary disease, unspecified
[2020-07-26] MEDS ORDERED: ONDANSETRON INJ 2 MG/ML 2 ML VIAL IV PRN (19:32)
[2020-07-26] MEDS ORDERED: DEXAMETHASONE SOD INJ 10 MG/ML VIAL IV SCH (19:32)
[2020-07-26 20:15] LABS: BUN Creatinine Ratio 16.4 (10-20); Calcium 8.7 mg/dl (8.5-10.1); Creatinine Clr Calc Pharmacy 16.7 ml/min; Est GFR (African American) 21.6; Est GFR (Non-African American) 18.6
[2020-07-26 20:16] LABS: Phosphorus 3.3 mg/dl (2.5-4.9)
--- NOTE | 2020-07-26 20:51 | CT Scan Report ---
CT OF THE CHEST WITHOUT IV CONTRAST CLINICAL HISTORY: f/u ?lung ca COMPARISON STUDY: Chest CT February 03, 2019. Chest radiograph April 22, 2020. CT DOSE: 521.69 mGy.cm TECHNIQUE: Axial images of the chest were obtained without IV contrast. Images were reviewed in the axial, sagittal, and coronal planes. IV contrast was not administered for this examination. Automat ed exposure control was utilized for the study. A dose lowering technique was utilized adhering to t he principles of ALARA. FINDINGS: The size of the heart is normal. There is moderate coronary artery calcification. There is no pericardial effusion. There has been interval development of pathologic mediastinal and right hil ar lymphadenopathy since chest CT of February 03, 2019. Index right paratracheal lymph node on image 132 o f 360 measures 4.3 x 3.9 cm. Index right hilar node measures approximately 3.7 x 2.8 cm. Subcarinal l ymph node measures 1.6 cm in short axis diameter. An irregular 2.7 x 2.2 cm nodule within the superio r segment of the right lower lobe has increased in size since prior chest CT. There are severe emphys kenton. There is no consolidation to suggest pneumonia. No pneumothorax or pleural effusion is noted. No suspicious lesions within the bony thorax are noted. Upper abdomen is unremarkable on this unenhance d examination. There are calcified cannula was within the spleen. IMPRESSION: 1. Irregular 2.7 x 2.2 cm nodule within the superior segment of the right lower lobe consistent with bronchogenic carcinoma. 2. Mediastinal and right hilar lymphadenopathy consistent with sagar spread of disease. 3. Severe emphysema. ACT 112: Negative or not required by law. Electronically signed by: Jeff Alfonso M.D. 07/26/2020 8:49 PM
[2020-07-26] MEDS ORDERED: INFLUENZA VIRUS QUAD VACCINE 0.5 ML SYR IM ONE (21:06)
[2020-07-26] MEDS ORDERED: INFLUENZA ADMINISTRATION CHARGE ONE (21:06)
[2020-07-26] MEDS: SODIUM CHLORIDE 0.9% 1000ML 1,000 ML IV SCH (22:20)
[2020-07-26] MEDS: amLODIPine BESYLATE 5 MG TAB PO SCH (23:25)
[2020-07-26] MEDS: hydrALAZINE HCL 20 MG/ML VIAL IV PRN (23:26)
[2020-07-27] MEDS: DEXAMETHASONE SOD PHOSPHATE 4 MG in SYRINGE 0 ML IV SCH ×4 (00:08→23:13)
[2020-07-27] MEDS: ACETAMINOPHEN 325 MG TAB PO PRN ×3 (01:39→23:13)
--- NOTE | 2020-07-27 08:04 | Magnetic Resonance Report ---
MRI OF THE BRAIN WITHOUT IV CONTRAST CLINICAL HISTORY: Follow-up brain lesions. COMPARISON STUDY: CT of the brain dated 07/26/2020. TECHNIQUE: MRI of the brain was performed utilizing various T1 and T2-weighted sequences in the axial , sagittal, and coronal planes. IV contrast was not administered for this examination due to poor donna al function. Note that the examination was performed in significantly suboptimal fashion without IV c ontrast. FINDINGS: Brain parenchyma: There is age-related involutional change noting mild subcortical and periventricula r microangiopathic disease. There is a large focus of edema in the left frontoparietal region seconda ry to a hemorrhagic metastasis. This was better characterized on today's CT scan, and the lesion marlen ures 1.7 cm in size. Edema mildly effaces the overlying cortical sulci and the left lateral ventricle . A smaller lesion is seen in the left frontal lobe with associated edema and measures up to 0.9 cm. No additional lesions are clearly identified on this unenhanced examination. There is no restricted d iffusion typical for acute ischemia. No midline shift is seen. No extra-axial fluid collection is anam ntified. The cerebellar tonsils are normal in configuration. Ventricles, sulci, and cisterns: Normal in configuration. Pituitary and sella: Unremarkable. Intracranial vasculature: Normal flow voids are maintained at the skull base. Orbits: The bony orbits are grossly intact. Orbital contents are normal in appearance. Sinuses and mastoids: Trace mucosal thickening is seen in the maxillary antra. The remaining paranasa l sinuses are clear. The mastoid air cells are well pneumatized. Calvarium: Unremarkable. Cervical cord: Partially visualized cervical spinal cord is normal in morphology and signal intensity . IMPRESSION: 1. Significantly suboptimal examination without IV contrast for a metastatic survey. 2. Again seen are 2 hemorrhagic lesions in the left hemisphere with significant surrounding edema. Th jackson are typical in appearance for metastatic disease. 3. Edema causes localized mass effect. There is no midline shift. 4. There is no evidence of acute ischemia. ACT 112: Negative or not required by law. Electronically signed by: Soy Wong M.D. 07/27/2020 8:03 AM
[2020-07-27] MEDS ORDERED: lisinopril 10 MG TAB PO SCH (09:00)
[2020-07-27] MEDS: ASPIRIN 81 MG ECTAB PO SCH (09:11)
[2020-07-27] MEDS: SODIUM CHLORIDE 0.9% 1000ML 1,000 ML IV SCH ×2 (09:11→22:34)
--- NOTE | 2020-07-27 09:12 | Radiation OncologyConsultation ---
Date of Consultation July 27, 2020 Assessment & Plan (1) Secondary malignant neoplasm of brain: Assessment: Mr. Reyes is a 64-year-old gentleman with positive history of smoking who now presents with likely metastatic lung cancer to the brain. The patient is currently admitted to the hospital for further work-up and evaluation. The patient is symptomatic with right upper extremity weakness. The patient has been started on Decadron 4 mg 3 times a day. The patient has been seen by Dr. Shea from pulmonary medicine who is planning to schedule the patient for a bronchoscopy with EBUS to obtain a tissue diagnosis. The patient has also been seen by Dr. Burks for medical oncology who is recommended continuation of Decadron, obtaining a tissue diagnosis and radiation oncology consultation. I am now seeing the patient in consultation to discuss the role of radiation therapy. Treatment Options: 1. Stereotactic radiosurgery to brain metastasis. 2. Hippocampal sparing whole brain radiation therapy. 3. Whole brain radiation therapy. 4. Best supportive care with corticosteroids. Plan: 1. Recommend the primary team obtain a MRI brain with and without contrast. 2. Anticipate potential radiation therapy. We will plan to bring patient down tomorrow for CT simulation for treatment planning for radiation therapy if the patient is still in the inpatient setting. Treatment will be delivered in the outpatient setting. 3. Bronchoscopy with EBUS to obtain tissue diagnosis. 4. Medical oncology outpatient follow-up. 5. Palliative care consultation. 6. Patient and family encouraged to call us with any further questions or concerns. Rationale/Explanation of Treatment: I explained the indications, alternatives, benefits, risks and side effects of external beam radiation therapy. I explain the most common side effects including but not limited to skin erythema, skin break down, hair loss, radiation necrosis, fatigue, short-term memory loss, decreased neurocognitive performance, cerebral edema, hearing loss, damage to cochlea structures, seizures, loss of sensory and or motor function. I explained the treatment planning process and what to expect before during and after treatment. The patient understands and would be willing to consent to treatment. The patient had multiple questions which were answered to his full satisfaction. Thank you for allowing us to participate in the care of this patient. This chart was completed in part utilizing [employer] Voice Recognition software. Attempts were made to minimize the grammatical errors, random word insertions, pronoun errors and incomplete sentences. Any formal questions or concerns about the content, text or information contained within the body of this dictation should be directly addressed to the provider for clarification. Rui Healy MD Department of Radiation Oncology [facility] History of Present Illness Attending Physician: Hector Amos History of Present Illness 05/02/2020. Chest x-ray. IMPRESSION: 1. Emphysema and suspected pulmonary arterial hypertension. 2. No evidence of acute parenchymal consolidation. 05/02/2020. CT of head. IMPRESSION: No acute intracranial findings 05/02/2020. MRI brain. IMPRESSION: 1. Small 4 mm focus of restricted diffusion within the left thalamus consistent with an acute to subacute lacunar infarct. 2. Mild atrophy and small vessel disease. 07/26/2020. Patient presents to emergency room for weakness involving the right upper extremity. Patient admitted for further work-up and evaluation. 07/26/2020. CT of head. IMPRESSION: 1. There are two hyperdense lesions within the left frontal lobe, largest of which measures 1.8 cm suggestive of hemorrhagic intracranial metastasis. The largest lesion demonstrates a large amount of surrounding vasogenic edema resulting in local sulcal effacement with gyral expansion. These findings are new from May 02, 2020. Correlation with imaging of the chest recommended to evaluate for possible primary pulmonary neoplasm. 2. No midline shift. 07/26/2020. MRI brain. IMPRESSION: 1. Significantly suboptimal examination without IV contrast for a metastatic survey. 2. Again seen are 2 hemorrhagic lesions in the left hemisphere with significant surrounding edema. These are typical in appearance for metastatic disease. 3. Edema causes localized mass effect. There is no midline shift. 4. There is no evidence of acute ischemia. 07/26/2020. CT of chest. IMPRESSION: 1. Irregular 2.7 x 2.2 cm nodule within the superior segment of the right lower lobe consistent with bronchogenic carcinoma. 2. Mediastinal and right hilar lymphadenopathy consistent with sagar spread of disease. 3. Severe emphysema. 07/27/2020. Pulmonary medicine consultation with Dr. Shea. Recommendation is to proceed with potential biopsy with EBUS FNA/Bronchoscopy either in the inpatient or outpatient setting. 07/27/2020. Medical oncology consultation with Dr. Burks. Recommendation is to obtain tissue diagnosis and radiation oncology consultation. Reevaluate patient in the outpatient setting. Allergies Allergy/AdvReac Type Severity Reaction Status Date / Time No Known Allergies Allergy Unknown Verified 07/26/20 15:30 Home Medications Home Medications Medication Instructions Recorded Confirmed Type aspirin 81 mg PO QAM 02/03/19 07/26/20 History albuterol sulfate 2 puffs INH Q6H PRN #6.7 gm 02/08/19 07/26/20 Rx Serevent Diskus 1 puffs INH BID PRN 05/02/20 07/26/20 History amlodipine [Norvasc] 5 mg PO QPM #30 tab 05/05/20 07/26/20 Rx lisinopril 10 mg PO QAM #30 tab 05/05/20 07/26/20 Rx Patient History Medical History (Updated 07/27/20 @ 10:01 by Rui Healy MD) Back pain Chronic kidney disease Baseline creatinine appears to be around 1.9mg/dl COPD (chronic obstructive pulmonary disease) Hypertension Admitted 02/03/19-02/08/19 with COPD exacerbation, found to have HTN urgency. Started on amlodipine 5mg daily the however this was discontinued due to cost Pneumonia Secondary malignant neoplasm of brain Tobacco use disorder 60 pack year history (2ppd for decades). Precontemplative Vasogenic brain edema Surgical History S/P arterial stent Unknown date; right leg; unknown location Family History Father , age 79 of pulmonary issues Lung cancer Lung disease Mother , age 53 of cancer (uncertain type but maybe lung) Hypertension Cancer Other No significant family history Social History Smoking Status: Current every day smoker Tobacco Type: Cigarettes Years Smoked: 40; Cigarettes Per Day: 20; Second Hand Exposure: Yes; Do You Dip or Chew Tobacco: No; Tobacco Cessation Education Requested by Patient: No Hx Alcohol Use: No Hx Substance Use: No Preferred Language: Hebrew Communication Ability: Effective Copy Operator Required: No Beliefs That Will Affect Care: None marital status: Single Current Living Situation: Significant Other current occupational status: retired current occupation: retired 1 year ago from [employer] Other Information That Helps Us Care for You: No Feels Safe at Home: Yes Safety Concerns: Feels Safe At This Time Assistive Devices: None Review of Systems Review of Systems: All systems reviewed & are unremarkable except as noted in HPI & below Physical Exam Constitutional: WD/WN, vitals as above well developed and well nourished Eyes: PERRL, conjunctivae normal, anicteric sclerae ENMT: external ear and nose normal, oropharynx normal Neck: trachea midline, no thyromegaly Respiratory: normal respiratory effort, lungs clear to auscultation Cardiovascular: RRR, no murmur, no edema Gastrointestinal (Abdomen): normal bowel sounds, soft, nontender, no hepatosplenomegaly Musculoskeletal: Ankle: + joint line tenderness (ankle) 3/5 strength in right upper extremity. Otherwise unremarkable. Skin: no rashes, warm and dry Neurologic: patellar DTR's 2+ bilat, sensation intact and PERRL, EOMI, accommodation nl, no face palsy, no dysarthria Psychiatric: A+Ox3, euthymic affect Time Spent Attending I spent 10 minutes in preparation for this consultation including reviewing all the clinical records, reviewing laboratory studies, pathology reports and imaging results. I spent 20 minutes with direct face to face interaction with the patient and/or family including performing a physical exam and answering all questions. I spent 15 minutes documenting this patient's visit.
--- NOTE | 2020-07-27 09:21 | Consultation Report ---
DATE OF CONSULTATION: 07/27/2020 ONCOLOGY CONSULTATION REASON FOR CONSULTATION: Metastatic brain disease, probable lung primary. HISTORY OF PRESENT ILLNESS: Mr. Reyes is a pleasant but unfortunate 64-year-old gentleman who presented to [facility] yesterday with right upper extremity numbness, tingling and weakness as well as imbalance. The patient apparently was seen back in 04/2019, found to have concerns on chest CT for possible malignancy. During the visit, recommendations for repeat CT scan of the chest with decision making regarding biopsy versus close monitoring were made at that point. Apparently, there was question of patient noncompliance in this circumstance as well. He subsequently presented to our Emergency Department on the day of admission with a profound 2-day duration right upper extremity weakness. He actually fell in his bathtub approximately 5 days ago and landed on the affected side. There is no reported loss of consciousness or seizure activity. The patient also denies headaches. CT scan of the head demonstrated new hyperdense lesions in the left frontal lobe, which were concerning for metastatic spread. CT scan of the chest reveals an irregular 2.7 x 2.2 cm nodule within the superior segment of the right lower lobe, mediastinal and right hilar lymphadenopathy consistent with sagar spread is seen. The patient reports anorexia and loss of weight of about 6 pounds over the past couple of weeks. He reports no pain at this time. Again, there is a high degree of suspicion that this gentleman suffers from metastatic lung cancer. Biopsy obviously will be necessary to confirm the diagnosis. PAST MEDICAL HISTORY: Chronic kidney disease, COPD, hypertension, pneumonia, tobacco use disorder. PAST SURGICAL HISTORY: Status post arterial stent. MEDICATIONS: Lisinopril 10 mg p.o. daily, Norvasc 5 mg p.o. daily, Serevent Diskus 1 puff inhaled b.i.d., albuterol sulfate 2 puffs inhaled q.6 hours p.r.n., aspirin 81 mg p.o. daily. ALLERGIES: No known drug allergies. SOCIAL HISTORY: The patient lives with his significant other. 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 He is a 40+ pack year smoker. Negative for alcohol or substance abuse. FAMILY HISTORY: Father at age 79 of pulmonary issues, lung cancer and COPD. Mother at age 53 of cancer of uncertain type, perhaps lung. REVIEW OF SYSTEMS: CONSTITUTIONAL: As per HPI, most notably for anorexia and weight loss, right upper extremity weakness as well as imbalance in gait. No fevers, chills or sweats. SKIN: No rashes or lesions. No history of dermatoses. HEENT: Again, he denies headaches, lightheadedness or dizziness. No acute visual or hearing deficits. No sinus symptoms, sore throat or dysphagia. LYMPHATICS: No history of lymphoproliferative disease. CARDIAC: No history of angina or palpitation. GASTROINTESTINAL: He denies abdominal pain, nausea, vomiting, diarrhea or constipation. GENITOURINARY: No history of prostate disease. No hematuria, dysuria, or urinary incontinence. PSYCHIATRIC: Negative for anxiety or psychoses. ENDOCRINE: Negative for diabetes or thyroid disease. NEUROLOGIC: Negative for seizures, stroke, or migraine headache. HEMATOLOGIC: Positive for normocytic normochromic anemia. PHYSICAL EXAMINATION: GENERAL: A very pleasant 64-year-old male, awake, alert and appropriate, in no acute distress. VITAL SIGNS: Temperature 36.6, pulse 72, respiratory rate 18, blood pressure 163/82. SKIN: Warm, dry. noncyanotic without petechia, rash or ecchymosis. HEENT: Atraumatic, normocephalic. Eyes: PERRLA, EOMI. Sclerae nonicteric. No conjunctival injection. Nares are patent without rhinorrhea or discharge. Throat is clear. Tongue is midline. No buccal lesions or ulcerations. NECK: Supple without JVD or thyromegaly. HEART: Regular rate and rhythm. LUNGS: Expiratory wheezes heard in all lung cavazos. ABDOMEN: Soft, nontender, nondistended, without palpable hepatosplenomegaly. EXTREMITIES: Musculoskeletal strength is diminished in the right upper extremity profoundly; otherwise, no clubbing, cyanosis or edema. NEUROLOGICAL: He is awake, alert and oriented x3. Cranial nerves are grossly intact. LABORATORY DATA: WBC count 6660, hemoglobin 11.3, platelet count 238,000. Sodium 141, potassium 5.0, chloride 114, carbon dioxide 21, creatinine 3.29, BUN 54. Albumin 3.1. IMPRESSION: 1. 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 2. Right upper extremity weakness attributable to central nervous system metastatic disease, probable lung primary. 3. Chronic obstructive pulmonary disease. 4. Chronic kidney disease. 5. Hypertension. 6. Tobacco use disorder. PLAN: It was my pleasure to visit with Mr. Reyes this morning at bedside. This unfortunate gentleman over the past several days developed right upper extremity weakness and gait imbalance leading to presentation to the Emergency Room. Apparently, has been in contact with pulmonary in the past; however, there has been a question of compliance in regards to followup. That said, his CT of the chest is suspicious for a lung primary and we need to pursue tissue for formal diagnosis. I would like that tissue to include PDL1, ALK, ROS1, and EGFR. Perhaps one of these targets may be positive, which would open the door for targeted therapy. 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 Recommended radiation oncology consult to discuss whole brain radiation moving forward. Lastly, obtain a CT scan of the abdomen and pelvis to complete staging. I will plan to reconvene with Mr. Reyes as outpatient to discuss salvage treatment options. I made it clear unfortunately, his disease is not curable and the goal of salvage therapy moving forward is to extend his life while maintaining quality. Explanations provided were well received. The patient's questions were answered to satisfaction. I will continue to follow Mr. Reyes periodically during his hospitalization. Thank you very much for allowing me to participate in his care.
--- NOTE | 2020-07-27 09:49 | Palliative Care Consultation ---
Date of Consultation July 27, 2020 Assessment & Plan (1) Palliative care encounter: This is a 64 year old male who presented to the [facility] with RUE weakness and recent fall within the week. He He reports that he has lost 6 pounds since April. He was diagnosed with primary lung cancer in April 2019; however, he did not fulfill follow up consultation on an outpatient basis with Pulmonology. He did proceed to see Dr. Navarro in April of 2020. This admission he underwent a CT of his chest which demonstrated a 2.7 x 2.2 cm nodule within the superior segment of the right lower lobe. Mediastinal and right hilar adenopathy were noted as well. MRI of his brain demonstrated 2 hemorrhagic lesions in the left hemisphere with significant surrounding edema that was typical for metastatic disease spread.He continues to be a smoker, 1 PPD since he has been [address] Burks was consulted and saw the patient indicating that salvage therapy for life prolongation would be an option, but stressed his cancer is not curative. Dr. Healy with radiation oncology was able to see the patient to evaluate for a total brain radiation. Palliative care was consulted to discuss goals of care and code status. I was able to see the patient in room 381. He was awake, alert, oriented and just finished a phone call with his girlfriend, Carline. We talked at length about the patients understanding regarding his current understanding of his condition. He is fully in support of moving forward with trialing brain radiation. We discussed code status and he understands the risks and benefits, and would like to remain a Full Code. We did discuss that he does not have any kids and does not have any siblings that he has a close contact with. Carline is his girlfriend and he indicated that he would want her to be his designated decision maker; however, does not have anything officially documented legally. I have a phone call in to [facility] with [facility] to establish her as his official decision maker should he be unable to participate in future goals of care conversations. Patient understands that his condition is unlikely to improve much but does want to try treatment. He was agreeable to continue seeing Palliative Care on an outpatient basis. I spoke with the Nurse Navigator to assist with arranging this. Would be beneficial to continue goals of care on an outpatient basis. Dr. Pinto to see this patient this afternoon. PPS: 50% (2) COPD (chronic obstructive pulmonary disease): COPD type: unspecified COPD Qualified Code(s): J44.9 - Chronic obstructive pulmonary disease, unspecified (3) Upper extremity weakness: (4) Secondary malignant neoplasm of brain: History of Present Illness Reason for Consultation: Goals of care Requesting Physician: Drew Alfaro PA-C Attending Physician: Hector Amos History of Present Illness This is a 64 year old male who presented to the [facility] with RUE weakness and recent fall within the week. He He reports that he has lost 6 pounds since April. He was diagnosed with primary lung cancer in April 2019; however, he did not fulfill follow up consultation on an outpatient basis with Pulmonology. He did proceed to see Dr. Navarro in April of 2020. This admission he underwent a CT of his chest which demonstrated a 2.7 x 2.2 cm nodule within the superior segment of the right lower lobe. Mediastinal and right hilar adenopathy were noted as well. MRI of his brain demonstrated 2 hemorrhagic lesions in the left hemisphere with significant surrounding edema that was typical for metastatic disease spread.He continues to be a smoker, 1 PPD since he has been [address] Burks was consulted and saw the patient indicating that salvage therapy for life prolongation would be an option, but stressed his cancer is not curative. Dr. Healy with radiation oncology was able to see the patient to evaluate for a total brain radiation. Palliative care was consulted to discuss goals of care and code status. Please see A/P for further information. Thank you kindly for involving the palliative care team with this individual. Allergies Allergy/AdvReac Type Severity Reaction Status Date / Time No Known Allergies Allergy Unknown Verified 07/26/20 15:30 Home Medications Home Medications Medication Instructions Recorded Confirmed Type aspirin 81 mg PO QAM 02/03/19 07/26/20 History albuterol sulfate 2 puffs INH Q6H PRN #6.7 gm 02/08/19 07/26/20 Rx Serevent Diskus 1 puffs INH BID PRN 05/02/20 07/26/20 History amlodipine [Norvasc] 5 mg PO QPM #30 tab 05/05/20 07/26/20 Rx lisinopril 10 mg PO QAM #30 tab 05/05/20 07/26/20 Rx Patient History Medical History (Updated 07/27/20 @ 13:21 by MICHELLE Turk) Back pain Chronic kidney disease Baseline creatinine appears to be around 1.9mg/dl COPD (chronic obstructive pulmonary disease) Hypertension Admitted 02/03/19-02/08/19 with COPD exacerbation, found to have HTN urgency. Started on amlodipine 5mg daily the however this was discontinued due to cost Palliative care encounter Pneumonia Secondary malignant neoplasm of brain Tobacco use disorder 60 pack year history (2ppd for decades). Precontemplative Vasogenic brain edema Surgical History S/P arterial stent Unknown date; right leg; unknown location Family History Father , age 79 of pulmonary issues Lung cancer Lung disease Mother , age 53 of cancer (uncertain type but maybe lung) Hypertension Cancer Other No significant family history Social History Smoking Status: Current every day smoker Tobacco Type: Cigarettes Years Smoked: 40; Cigarettes Per Day: 20; Second Hand Exposure: Yes; Do You Dip or Chew Tobacco: No; Tobacco Cessation Education Requested by Patient: No Hx Alcohol Use: No Hx Substance Use: No Preferred Language: Barbadian Communication Ability: Effective Imaging Assistant Required: No Beliefs That Will Affect Care: None marital status: Single Current Living Situation: Significant Other current occupational status: retired current occupation: retired 1 year ago from [employer] Other Information That Helps Us Care for You: No Feels Safe at Home: Yes Safety Concerns: Feels Safe At This Time Assistive Devices: None Results & Data ([facility]) Vital Signs (Past 12 Hours) Vital Signs Temp Pulse Pulse Resp BP BP Pulse Ox 07/27/20 08:08 36.5 C 70 16 146/85 H 97 07/27/20 04:15 72 163/82 H 07/27/20 00:07 69 112/72 07/26/20 23:22 36.6 C 69 18 189/103 H 180/107 H 98 07/26/20 22:09 84 147/82 H PG Care Time/CCT Total # of Minutes Spent Total Time Spent with Patient: Total time spent is greater than 50% in coordination of care (as documented) at patient's floor/unit and/or counseling patient: 70 Coding Level of Care Code 31854 Inpt Consult Level 3 Diagnoses Palliative care encounter Z51.5 COPD (chronic obstructive pulmonary disease) J44.9 COPD type: unspecified COPD Upper extremity weakness R29.898 Secondary malignant neoplasm of brain C79.31 Time Spent (min) 70 Time Spent Midlevel Total time spent 70 minutes with > 50% of that time spent assessing the patient, discussing goals of care, code status and establishing a decision maker, while collaborating [facility] IDT
--- NOTE | 2020-07-27 09:54 | Pulmonary Consultation ---
Date of Consultation July 27, 2020 Assessment & Plan (1) Pulmonary lesion: Patient's imaging is very concerning for lung cancer with metastatic spread to the brain. He has significant hilar and mediastinal lymphadenopathy. I will plan for an endobronchial ultrasound with transbronchial needle aspiration on Friday. I do not want to perform the bronchoscopy in the next 2 days as I do not want to increase his intracranial pressure. He is currently on Decadron. Hematology/oncology consult and radiation oncology consult are both place. I did talk to Dr. Healy. The plan is for a contrast MRI of the brain to evaluate the lesions further. We are going to discuss this patient further in thoracic pathology conference. This was all discussed with the patient. I will continue to follow along with you. Thank you for the consult. (2) Brain lesion: (3) Tobacco use disorder: (4) Vasogenic brain edema: History of Present Illness Reason for Consultation: Lung nodule with mediastinal and hilar adenopathy co ncerning for lung cancer Requesting Physician: Hospitalist service Attending Physician: Hector Amos History of Present Illness 64-year-old male with a past medical history of tobacco abuse, COPD, hypertension who is presenting to the hospital due to right upper extremity weakness. Patient notes that he had a fall approximately 5 days ago. He also notes that he had dizziness over the last several months and was actually in the hospital back in April due to dizziness. This was thought to be related to hypertensive emergency versus a posterior circulation CVA. Patient is actually known to pulmonary and saw Dr. Navarro in the clinic back in April. He had an incidental nodule found in the right lower lobe on CT scan after an emergency department visit. The recommendation at the time of the pulmonary visit was to have a CT scan of his chest as soon as possible. Unfortunately, the patient did not have a CT scan completed. Yesterday evening he underwent a CT of his chest which demonstrated a 2.7 x 2.2 cm nodule within the superior segment of the right lower lobe. Mediastinal and right hilar adenopathy were noted as well. MRI of his brain demonstrated 2 hemorrhagic lesions in the left hemisphere with significant surrounding edema that was typical for metastatic disease spread. He notes that he has lost 6 pounds of weight since April. His appetite has been decreased. He has been having some night sweats which are new in the last 6 months. Labs do not demonstrate any evidence of hypercalcemia. Patient notes that he smokes 1 pack of cigarettes a day since the age of 14. He has a history of lung cancer in his uncle and his father. He notes his father was a non-smoker. He also has a history of gastric cancer in his mother. He currently lives with his girlfriend in a house. His travel situation is a bit complex as the cannot drive currently. He is currently retired. Allergies Allergy/AdvReac Type Severity Reaction Status Date / Time No Known Allergies Allergy Unknown Verified 07/26/20 15:30 Home Medications Home Medications Medication Instructions Recorded Confirmed Type aspirin 81 mg PO QAM 02/03/19 07/26/20 History albuterol sulfate 2 puffs INH Q6H PRN #6.7 gm 02/08/19 07/26/20 Rx Serevent Diskus 1 puffs INH BID PRN 05/02/20 07/26/20 History amlodipine [Norvasc] 5 mg PO QPM #30 tab 05/05/20 07/26/20 Rx lisinopril 10 mg PO QAM #30 tab 05/05/20 07/26/20 Rx Patient History Medical History (Updated 07/27/20 @ 09:52 by David Shea MD) Back pain Chronic kidney disease Baseline creatinine appears to be around 1.9mg/dl COPD (chronic obstructive pulmonary disease) Hypertension Admitted 02/03/19-02/08/19 with COPD exacerbation, found to have HTN urgency. Started on amlodipine 5mg daily the however this was discontinued due to cost Pneumonia Tobacco use disorder 60 pack year history (2ppd for decades). Precontemplative Vasogenic brain edema Surgical History S/P arterial stent Unknown date; right leg; unknown location Family History Father , age 79 of pulmonary issues Lung cancer Lung disease Mother , age 53 of cancer (uncertain type but maybe lung) Hypertension Cancer Other No significant family history Social History Smoking Status: Current every day smoker Tobacco Type: Cigarettes Years Smoked: 40; Cigarettes Per Day: 20; Second Hand Exposure: Yes; Do You Dip or Chew Tobacco: No; Tobacco Cessation Education Requested by Patient: No Hx Alcohol Use: No Hx Substance Use: No Preferred Language: Slovak Communication Ability: Effective 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 Beliefs That Will Affect Care: None marital status: Single Current Living Situation: Significant Other current occupational status: retired current occupation: retired 1 year ago from [employer] Other Information That Helps Us Care for You: No Feels Safe at Home: Yes Safety Concerns: Feels Safe At This Time Assistive Devices: None Review of Systems Review of Systems: All systems reviewed & are unremarkable except as noted in HPI & below Physical Exam Constitutional: + ill appearing and + cachectic Eyes: PERRL, conjunctivae normal, anicteric sclerae ENMT: external ear and nose normal, oropharynx normal Neck: normal visual inspection Respiratory: Mild expiratory wheezes noted. Prolonged phase of exhalation. Normal respiratory effort Cardiovascular: RRR, no murmur, no edema Gastrointestinal (Abdomen): normal bowel sounds, soft, nontender, no hepatosplenomegaly Musculoskeletal: no cyanosis or clubbing, extremities motor strength 5/5 Skin: no rashes, warm and dry Neurologic: 3/5 strength in the right upper extremity. 5 out of 5 elsewhere. Psychiatric: A+Ox3, euthymic affect Results & Data Results & Data ([facility]) Vital Signs (Past 12 Hours) Vital Signs Temp Pulse Pulse Resp BP BP Pulse Ox 07/27/20 08:08 97.7 F 70 16 146/85 H 97 07/27/20 04:15 72 163/82 H 07/27/20 00:07 69 112/72 07/26/20 23:22 97.9 F 69 18 189/103 H 180/107 H 98 07/26/20 22:09 84 147/82 H PG Care Time/CCT Total # of Minutes Spent Total Time Spent with Patient: Total time spent is greater than 50% in coordination of care (as documented) at patient's floor/unit and/or counseling patient: Coding Level of Care Code 61781 Inpt Consult Level 5 Diagnoses Pulmonary lesion J98.4 Brain lesion G93.9 Tobacco use disorder F17.200 Vasogenic brain edema G93.6
--- NOTE | 2020-07-27 10:29 | Electrocardiogram Report ---
Test Reason : Blood Pressure : / mmHG Vent. Rate : 066 BPM Atrial Rate : 066 BPM P-R Int : 154 ms QRS Dur : 064 ms QT Int : 422 ms P-R-T Axes : 062 067 083 degrees QTc Int : 442 ms Normal sinus rhythm Normal ECG When compared with ECG of 02-MAY-2020 16:26, Nonspecific T wave abnormality no longer evident in Inferior leads Nonspecific T wave abnormality no longer evident in Lateral leads Confirmed by Wero Palacio ([id number]) on 07/27/2020 10:28:47 AM Referred By: REFERRED SELF Confirmed By:Wero Palacio
[2020-07-27] MEDS ORDERED: GADOBUTROL 65ML VIAL IV ONE (16:02)
--- NOTE | 2020-07-27 16:17 | Magnetic Resonance Report ---
MRI OF THE BRAIN WITH IV CONTRAST CLINICAL HISTORY: Metastatic disease. COMPARISON STUDY: MRI of the brain May 02, 2020. MRI of the brain and head CT July 26, 2020. TECHNIQUE: Utilizing a 1.5 Shilpa magnet and dedicated coil, multiplanar, multiecho imaging of the br ain was performed postcontrast administration. IV administration of 5.5 mL of Gadavist contrast was uneventful. Thin cut T1 post contrast imaging was performed with multiplanar reformats. FINDINGS: The thin cut T1 post contrast sequence is moderately compromised by motion artifact. Note i s made of a 1.7 x 1.6 cm rim-enhancing mass within the posterior left frontal lobe with extensive ass ociated vasogenic edema. There is sulcal effacement. There is no significant midline shift. Note is a lso made of a 7 mm enhancing lesion within the anterior left frontal lobe shown on axial image 17 of 23. This has mild associated vasogenic edema. No additional enhancing lesions are identified. Ventric ular system is unremarkable. Basilar cisterns are patent. There are no extra axial collections. No ca lvarial lesions are identified. Flow-voids for the major intracranial vessels are present. IMPRESSION: 1. 1.7 x 1.6 cm rim-enhancing mass within the posterior left frontal lobe consistent with metastatic disease. Extensive associated vasogenic edema with sulcal effacement. 2. Additional 7 mm metastasis within the anterior left frontal lobe with mild associated vasogenic ed kenton. 3. No additional metastases identified although thin cut postcontrast sequence compromised by motion artifact. ACT 112: Negative or not required by law. Electronically signed by: Jeff Alfonso M.D. 07/27/2020 4:16 PM
[2020-07-27] MEDS: hydrALAZINE HCL 20 MG/ML VIAL IV PRN (17:45)
--- NOTE | 2020-07-27 22:26 | Communication Note ---
Date of Service: July 27, 2020 After further review of the latest contrast enhanced MRI of the brain for this patient, I have decided to delay EBUS-TBNA of mediastinal adenopathy for Friday with the assistance of anesthesiology so as to mitigate the risk of increasing ICP and causing potential harm to this patient. I will discontinue the NPO order. If feasible, it would be preferable to have the patient remain here until Friday to undergo the procedure as he does have significant transportation issues and we can further monitor his neurocognitive status. Neurology consultation may prove beneficial as well.
[2020-07-27] MEDS: amLODIPine BESYLATE 5 MG TAB PO SCH (22:34)
--- NOTE | 2020-07-27 23:28 | Hospitalist Progress Note ---
Date of Service July 27, 2020 Assessment & Plan (1) Brain lesion: New brain lesions on CT as follows: 1. There are two hyperdense lesions within the left frontal lobe, largest of which measures 1.8 cm suggestive of hemorrhagic intracranial metastasis. The largest lesion demonstrates a large amount of surrounding vasogenic edema resulting in local sulcal effacement with gyral expansion. These findings are new from May 02, 2020. Correlation with imaging of the chest recommended to e valuate for possible primary pulmonary neoplasm. 2. No midline shift. Findings concerning in the individual with possible underlying pulmonary lesion seen during evaluation in 2019. Patient never completed recommended follow-up per pulmonary recommendations. Had been asymptomatic to this point. Concerns are for possible primary lung CA with metastatic spread. Will consult pulmonary for recommendations regarding utility of bronchoscopy for possible cancer typing. Will add repeat CT chest in the process. Per recommendations from hematology/oncology: Received 12 mg Decadron IV initially. We will continue 4 mg every 8 hours at this point. Consulted raditiation oncology, appreciate input. Needed an MRI of brain with contrast given that patient has these lesions and they needed to be better delineated. However patient has an elevated creatinine. Risk and benefits were discussed and ordered MRI. Consulted pulmonary, patient will have a bronchoscopy however, this will be done either tomorrow or friday. (2) Pulmonary lesion: As seen on prior imaging. noted again on imaging. will need biopsy. (3) Upper extremity weakness: CT cervical spine without any acute findings. Findings may be consistent with neurologic effects of new brain lesions in the LEFT frontal lobe. (4) COPD (chronic obstructive pulmonary disease): Continue with home inhalers. Supplemental O2 as needed. (5) Chronic kidney disease: Appears to be slightly elevated from his baseline. May be related to chronic hypertension. Gentle hydration with IV fluids. will monitor. (6) Tobacco use disorder: continue to encourage smoking cessation. (7) Hypertension: Given all other conversations, question the patient's compliance. Will treat with hydralazine as needed. Continue home medications as needed. (8) Hypertensive urgency: Treat with hydralazine as needed. Continue home medications. (9) Multiple pulmonary nodules: Repeat CT today. Appreciate pulmonary recommendations. (10) PVD (peripheral vascular disease): Will hold off on anticoagulation in the setting of new brain lesions and findings of hemorrhagic intracranial metastases. Admission and Anticipated Discharge Date Admission Date: July 26, 2020 Subjective 64 yo male reprts no new symptoms. Review of Systems Review of Systems: All systems reviewed & are unremarkable except as noted in HPI & below Physical Exam Physical Exam: GENERAL - 64-year-old male appearing his stated age who is in no acute distress. HEAD - Normocephalic, Atraumatic. EYES - PERRL with EOMI bilaterally. Sclera anicteric. EARS - No deformities of external structures noted on gross examination bilaterally. NOSE - Midline and without cyanosis. Septum midline without deviation or septal hematoma noted. MOUTH/OROPHARYNX - Without perioral cyanosis. Buccal mucosa pink and moist and without leukoplakia. Tongue midline with equal elevation of palate bilaterally. Poor dentition noted. NECK - Neck with FROM. Supple to palpation. No lymphadenopathy noted. No nuchal rigidity. LUNGS - Chest wall symmetric without accessory muscle use. Normal vesicular breath sounds CTA B/L. No wheezes, rales, or rhonchi appreciated. CARDIAC - RRR with S1/S2. No murmur, rubs, or gallops appreciated. ABDOMEN - Abdominal contour flat without pulsations or visible masses. BS normoa ctive all four quadrants. No tenderness, palpable masses, hepatosplenomegaly, or ascites noted. EXTREMITIES - No pretibial edema present. +3/5 radial and dorsalis pedis pulses palpated throughout. Profound weakness of the entire RUE w/ limited ability to move digits only. LUE/RLE/LLE all w/ +5/5 strenght. NEUROLOGIC - Cranial nerves II through XII grossly intact. PSYCH - A&Ox3 and cooperates fully with examiner. Results & Data Results & Data ([facility]) Vital Signs (Past 12 Hours) Vital Signs Temp Pulse Resp BP BP Pulse Ox 07/27/20 22:34 36.5 C 74 16 151/93 H 97 07/27/20 19:24 132/76 07/27/20 17:40 181/95 H 07/27/20 15:07 36.4 C L 70 16 173/99 H 97 PG Care Time/CCT Total # of Minutes Spent Total Time Spent with Patient: Total time spent is greater than 50% in coordination of care (as documented) at patient's floor/unit and/or counseling patient: Coding Level of Care Code 65490 Subseq Hosp Care Lvl 3 Diagnoses Brain lesion G93.9 Pulmonary lesion J98.4 Upper extremity weakness R29.898 COPD (chronic obstructive pulmonary disease) J44.9 COPD type: unspecified COPD Chronic kidney disease N18.4 Chronic kidney disease stage: stage 4 (severe) Tobacco use disorder F17.200 Hypertension I10 Hypertensive urgency I16.0 Multiple pulmonary nodules R91.8 PVD (peripheral vascular disease) I73.9 Time Spent (min) 35 (1) Chronic kidney disease Chronic kidney disease stage: stage 4 (severe) Qualified Code(s): N18.4 - Chronic kidney disease, stage 4 (severe) (2) COPD (chronic obstructive pulmonary disease) COPD type: unspecified COPD Qualified Code(s): J44.9 - Chronic obstructive pulmonary disease, unspecified
--- NOTE | 2020-07-28 07:48 | Pulmonology Progress Note ---
Date of Service July 28, 2020 Assessment & Plan (1) Pulmonary lesion: Given the degree of vasogenic edema in his brain and physical exam findings noted, I am planning for bronchoscopy with biopsy on Friday at this time with general anesthesia so as to minimize increase in intracranial pr essure. I am confident that we will be able to get a diagnosis of the mediastinal and hilar adenopathy. I would favor keeping this patient in the hospital until Friday as he does have significant transportation issues and has unfortunately missed follow-up in the past as an outpatient. The patient is understanding and willing to undergo the procedure to obtain a diagnosis. He is understanding the risks and benefits. I will continue to follow along with you. Thank you for the consult. (2) Brain lesion: (3) Tobacco use disorder: (4) Vasogenic brain edema: Admission and Anticipated Discharge Date Admission Date: July 26, 2020 Subjective Patient is lying in bed this morning. Notes that his weakness is still present in his right upper extremity, but slightly improved. No other complaints. Denies chest pain, nausea, vomiting or shortness of breath. Review of Systems Review of Systems: All systems reviewed & are unremarkable except as noted in HPI & below Physical Exam Constitutional: + ill appearing and + cachectic Eyes: PERRL, conjunctivae normal, anicteric sclerae ENMT: external ear and nose normal, oropharynx normal Neck: normal visual inspection Cardiovascular: RRR, no murmur, no edema Gastrointestinal (Abdomen): normal bowel sounds, soft, nontender, no hepatosplenomegaly Musculoskeletal: no cyanosis or clubbing, extremities motor strength 5/5 Skin: no rashes, warm and dry Psychiatric: A+Ox3, euthymic affect Results & Data Results & Data ([facility]) Vital Signs (Past 12 Hours) Vital Signs Temp Pulse Resp BP Pulse Ox 07/27/20 22:34 97.7 F 74 16 151/93 H 97 PG Care Time/CCT Total # of Minutes Spent Total Time Spent with Patient: Total time spent is greater than 50% in coordination of care (as documented) at patient's floor/unit and/or counseling patient: Coding Level of Care Code 98101 Subseq Hosp Care Lvl 2 Diagnoses Pulmonary lesion J98.4 Brain lesion G93.9 Tobacco use disorder F17.200 Vasogenic brain edema G93.6
--- NOTE | 2020-07-28 08:40 | Palliative Care Progress Note ---
Date of Service July 28, 2020 Assessment & Plan (1) Palliative care encounter: Recently diagnosed with brain metastases presumed from lung tumor. He will be starting radiation therapy. He is concerned about edema. We discussed role of steroid and radiation treatment. He is also discussing this with Dr. Healy. He has had some problems with follow through on his care in the past and will need support on discharge. He is agreeable to f/u with palliative care as an outpatient. Discussed with Dr. Healy. (2) Upper extremity weakness: Improved with steroids, likely further improvement with Radiation therapy. Admission and Anticipated Discharge Date Admission Date: July 26, 2020 Subjective Moving right arm more today. MRI shows 1.6x1.7 cm left frontal lobe metastatic lesion with significant vasogenic edema. There is another smaller left frontal lobe lesion with mild edema. He is on decadron and will be starting radiation therapy. He is also anticipating biopsy of lung lesion. He denies pain or discomfort. Review of Systems Review of Systems: [place] Symptom Assessment Scale Pain 0/3 Dyspnea 0/3 Nausea 0/3 Anxiety 0/3 Drowsiness 0/3 Palliative Performance Score 40% Physical Exam Constitutional: comfortable; no acute distress Respiratory: normal respiratory effort; no labored breathing Musculoskeletal: RUE strength 4 1/2/5 Skin: warm and dry Psychiatric: Orientation: alert and oriented x 3 Affect: euthymic affect Results & Data ([facility]) Vital Signs (Past 12 Hours) Vital Signs Temp Pulse Pulse Resp BP Pulse Ox 07/28/20 07:47 98.1 F 80 16 145/85 H 94 07/27/20 22:34 97.7 F 74 16 151/93 H 97 PG Care Time/CCT Total # of Minutes Spent Total Time Spent with Patient: Total time spent is greater than 50% in coordination of care (as documented) at patient's floor/unit and/or counseling patient: 29min with more than 50% of time spent on discussing medications and symptom management, plan of care. Coding Level of Care Code 42023 Subseq Hosp Care Lvl 2 Diagnoses Palliative care encounter Z51.5 Upper extremity weakness R29.898 Time Spent (min) 29 Comment [id number]
[2020-07-28] MEDS: ASPIRIN 81 MG ECTAB PO SCH (08:50)
[2020-07-28] MEDS: DEXAMETHASONE SOD PHOSPHATE 4 MG in SYRINGE 0 ML IV SCH ×3 (08:50→23:11)
[2020-07-28 09:23] LABS: BUN Creatinine Ratio 19.1 (10-20); Calcium 7.9 mg/dl (8.5-10.1); Creatinine Clr Calc Pharmacy 17.7 ml/min; Est GFR (African American) 20.9; Potassium 5.1 mmol/L (3.5-5.1)
--- NOTE | 2020-07-28 10:25 | Radiation Oncology Progress Nt ---
Date of Service July 28, 2020 Assessment & Plan (1) Secondary malignant neoplasm of brain: Assessment: Mr. Reyes is a 64-year-old gentleman with positive history of smoking who now presents with likely metastatic lung cancer to the brain. The patient is currently admitted to the hospital for further work-up and evaluation. The patient is symptomatic with right upper extremity weakness. The patient has been started on Decadron 4 mg 3 times a day. The patient has been seen by Dr. Shea from pulmonary medicine who is planning to schedule the patient for a bronchoscopy with EBUS to obtain a tissue diagnosis. The patient has also been seen by Dr. Burks for medical oncology who is recommended continuation of Decadron, obtaining a tissue diagnosis and radiation oncology consultation. I am now seeing the patient in consultation to discuss the role of radiation therapy. Update: Patient will obtain biopsy next week by pulmonary. MRI of Brain completed. Recommendation: Stereotactic radiosurgery. 5 fractions. Treatment will be completed in outpatient setting. Patient agreeable to this plan. Plan: 1. CT simulation to be completed today. Plan for radiation therapy in the outpatient setting. 2. Bronchoscopy with EBUS to obtain tissue diagnosis. 3. Medical oncology outpatient follow-up. 4. Palliative care consultation. 5. Patient and family encouraged to call us with any further questions or concerns. Admission and Anticipated Discharge Date Admission Date: July 26, 2020
[2020-07-28] MEDS: SODIUM CHLORIDE 0.9% 1000ML 1,000 ML IV SCH (12:50)
[2020-07-28] MEDS: amLODIPine BESYLATE 5 MG TAB PO SCH (20:28)
[2020-07-28] MEDS: OLODATEROL HCL 2.5MCG/ACTUATION 60 PUFFS/INHALER INH PRN (21:23)
[2020-07-28] MEDS: ACETAMINOPHEN 325 MG TAB PO PRN (21:27)
--- NOTE | 2020-07-28 22:32 | Hospitalist Progress Note ---
Date of Service July 28, 2020 Assessment & Plan (1) Brain lesion: New brain lesions on CT as follows: 1. There are two hyperdense lesions within the left frontal lobe, largest of which measures 1.8 cm suggestive of hemorrhagic intracranial metastasis. The largest lesion demonstrates a large amount of surrounding vasogenic edema resulting in local sulcal effacement with gyral expansion. These findings are new from May 02, 2020. Correlation with imaging of the chest recommended to e valuate for possible primary pulmonary neoplasm. 2. No midline shift. Findings concerning in the individual with possible underlying pulmonary lesion seen during evaluation in 2019. Patient never completed recommended follow-up per pulmonary recommendations. Had been asymptomatic to this point. Concerns are for possible primary lung CA with metastatic spread. Will consult pulmonary for recommendations regarding utility of bronchoscopy for possible cancer typing. Will add repeat CT chest in the process. Per recommendations from hematology/oncology: Received 12 mg Decadron IV initially. -will continue 4 mg every 8 hours at this point. Consulted radiation oncology, appreciate input. Plan is to initiate radiation as an outpatient. Consulted pulmonary, patient will have a bronchoscopy however, this will be done Friday. (2) Pulmonary lesion: As seen on prior imaging. noted again on imaging. will need biopsy. (3) Upper extremity weakness: CT cervical spine without any acute findings. Findings may be consistent with neurologic effects of new brain lesions in the LEFT frontal lobe. (4) COPD (chronic obstructive pulmonary disease): Continue with home inhalers. Supplemental O2 as needed. (5) Chronic kidney disease: Appears to be slightly elevated from his baseline. May be related to chronic hypertension. Gentle hydration with IV fluids. will monitor. (6) Tobacco use disorder: continue to encourage smoking cessation. (7) Hypertension: Given all other conversations, question the patient's compliance. Will treat with hydralazine as needed. Continue home medications as needed. (8) Hypertensive urgency: Treat with hydralazine as needed. Continue home medications. (9) Multiple pulmonary nodules: Repeat CT today. Appreciate pulmonary recommendations. (10) PVD (peripheral vascular disease): Will hold off on anticoagulation in the setting of new brain lesions and findings of hemorrhagic intracranial metastases. Admission and Anticipated Discharge Date Admission Date: July 26, 2020 Subjective Patient reports no new symptoms, no improvement in regards to weakness. Review of Systems Review of Systems: All systems reviewed & are unremarkable except as noted in HPI & below Physical Exam Physical Exam: GENERAL - 64-year-old male appearing his stated age who is in no acute distress. HEAD - Normocephalic, Atraumatic. EYES - PERRL with EOMI bilaterally. Sclera anicteric. EARS - normal inspection NOSE - Midline and without cyanosis. MOUTH/OROPHARYNX -Tongue midline with equal elevation of palate bilaterally. Poor dentition noted. NECK - Neck with FROM. Supple to palpation. No lymphadenopathy noted. No nuchal rigidity. LUNGS - Chest wall symmetric without accessory muscle use. Normal vesicular breath sounds CTA B/L. No wheezes, rales, or rhonchi appreciated. CARDIAC - RRR with S1/S2. No murmur, rubs, or gallops appreciated. ABDOMEN - Abdominal contour flat without pulsations or visible masses. BS normoactive all four quadrants. No tenderness, palpable masses, hepatosplenomegaly, or ascites noted. EXTREMITIES - No pretibial edema present. +3/5 radial and dorsalis pedis pulses palpated throughout. Profound weakness of the entire RUE w/ limited ability to move digits only. LUE/RLE/LLE all w/ +5/5 strenght. NEUROLOGIC - Cranial nerves II through XII grossly intact. PSYCH - A&Ox3 and cooperates fully with examiner Results & Data Results & Data ([facility]) Vital Signs (Past 12 Hours) Vital Signs Temp Pulse Resp BP Pulse Ox 07/28/20 16:08 36.0 C L 82 15 144/86 H 97 PG Care Time/CCT Total # of Minutes Spent Total Time Spent with Patient: Total time spent is greater than 50% in coordination of care (as documented) at patient's floor/unit and/or counseling patient: Coding Level of Care Code 80656 Subseq Hosp Care Lvl 2 Diagnoses Brain lesion G93.9 Pulmonary lesion J98.4 Upper extremity weakness R29.898 COPD (chronic obstructive pulmonary disease) J44.9 COPD type: unspecified COPD Chronic kidney disease N18.4 Chronic kidney disease stage: stage 4 (severe) Tobacco use disorder F17.200 Hypertension I10 Hypertensive urgency I16.0 Multiple pulmonary nodules R91.8 PVD (peripheral vascular disease) I73.9 Time Spent (min) 25 (1) COPD (chronic obstructive pulmonary disease) COPD type: unspecified COPD Qualified Code(s): J44.9 - Chronic obstructive pulmonary disease, unspecified (2) Chronic kidney disease Chronic kidney disease stage: stage 4 (severe) Qualified Code(s): N18.4 - Chronic kidney disease, stage 4 (severe)
[2020-07-28] MEDS: ALBUTEROL HFA 8 GM INHALER INH PRN (23:46)
[2020-07-29] MEDS: SODIUM CHLORIDE 0.9% 1000ML 1,000 ML IV SCH ×2 (05:21→18:06)
[2020-07-29 07:46] LABS: Hematocrit (blood only) 32.6 % (42-52); Hemoglobin 10.7 g/dL (14.0-18.0); Mean Corpuscular Hemoglobin 30.4 pg (25-34); Mean Corpuscular Hgb Conc 32.8 g/dL (32-36); Mean Corpuscular Volume 92.6 fL (80-100); Mean Platelet Volume 9.6 fL (7.4-10.4); Platelet Count 237 K/uL (130-400); RDW Coefficient of Variation 15.3 % (11.5-14.5); RDW Standard Deviation 51.8 fL (36.4-46.3); Red Blood Count 3.52 M/uL (4.7-6.1); White Blood Count 11.51 K/uL (4.8-10.8)
[2020-07-29] MEDS: ASPIRIN 81 MG ECTAB PO SCH (08:39)
[2020-07-29] MEDS: DEXAMETHASONE SOD PHOSPHATE 4 MG in SYRINGE 0 ML IV SCH ×2 (08:39→15:34)
[2020-07-29] MEDS: OLODATEROL HCL 2.5MCG/ACTUATION 60 PUFFS/INHALER INH PRN (08:41)
[2020-07-29 09:02] LABS: BUN Creatinine Ratio 21.3 (10-20); Calcium 7.7 mg/dl (8.5-10.1); Creatinine Clr Calc Pharmacy 18.3 ml/min; Est GFR (African American) 21.8; Est GFR (Non-African American) 18.8; Potassium 5.3 mmol/L (3.5-5.1)
--- NOTE | 2020-07-29 10:27 | Progress Notes ---
DATE: 07/29/2020 DIAGNOSES: 1. Metastatic brain disease, probable lung primary. 2. Right upper extremity weakness attributable to brain mets. 3. Chronic obstructive pulmonary disease. 4. Chronic kidney disease. 5. Tobacco use disorder. SUBJECTIVE: The patient is a pleasant 64-year-old gentleman I saw via consultation a couple of days ago. He presented with brain mets and probable lung primary. He was started on and continues dexamethasone, which has been helpful. His right arm strength has improved modestly. He reports no pain or discomfort this morning. Appreciate radiation oncology's input as they planned a stereotactic surgery by fractions to begin upon discharge. Pulmonary will obtain formal biopsy on Friday and thereafter will establish a therapeutic plan for salvage therapy moving forward. Nursing reports no overnight difficulties otherwise. OBJECTIVE: GENERAL: A very pleasant 64-year-old gentleman, awake, alert and appropriate, in no acute distress. VITAL SIGNS: Temperature 36.7, pulse 69, respiratory rate 18, blood pressure 171/94. SKIN: Without rash or lesion. HEENT: Oral mucosa without erythema or ulceration. HEART: Regular rate and rhythm. LUNGS: Expiratory wheezes heard diffusely. ABDOMEN: Soft, nontender, nondistended. EXTREMITIES: No clubbing, cyanosis or edema. NEUROLOGIC: Grossly intact with a residual right upper extremity weakness. LABORATORY DATA: WBC count 11,510, hemoglobin 10.7, platelet count 237,000. Sodium 136, potassium 5.3, chloride 114, carbon dioxide 17, creatinine 3.26, BUN 69. IMPRESSION: 1. Metastatic brain disease. 2. Pulmonary mass, suspect lung cancer. 3. Right upper extremity weakness. 4. Acute on chronic kidney disease. 5. Tobacco use disorder. PLAN: It was my pleasure to visit with the patient today at bedside. His mental outlook, I may say is quite good, despite potentially devastating diagnosis. Appreciate both pulmonary and radiation oncology's input and help establishing a diagnosis and treatment. Radiation is planning a stereotactic radiosurgery 5 fractions to start when the patient is discharged. He will continue dexamethasone at the current schedule. Hopefully, a pulmonary is able to provide a diagnosis. Again, we will need biomarkers particularly ROS1, ALK, EGFR, and PD-L1 from pathology. From a oncologic standpoint, the patient seems to be stabilizing and perhaps could be discharged home after his biopsy on Friday. We will continue to follow him periodically and ensure an expedient outpatient followup is established. I have nothing further to add at this time. Thank you very much for allowing me to participate in his care.
--- NOTE | 2020-07-29 15:45 | Hospitalist Progress Note ---
Date of Service July 29, 2020 Assessment & Plan (1) Lung cancer: Presumed diagnosis given lung lesion with brain mets. - Plan for EBUS on Friday - Hold ASA (2) Brain lesion: New brain lesions on brain MRI. Likely metastatic disease. - Radiation oncology consulted - Plan for outpatient radiation treatment. - Continue dexamethasone 4 mg PO Q8h (3) Pulmonary lesion: As seen on CT chest. - Biopsy as above (4) Upper extremity weakness: Due to brain lesion in left frontal lobe. CT cervical spine without any acute findings. - As above for treatment. (5) Chronic kidney disease: Baseline appears to be ~2.3 - 2.5; eGFR ~28, CKD Stage IV. - Presently Cr is up to 3.25. Likely pre-renal with elevated BUN. - Continue gentle IV fluids; no indication of volume overload. - Monitor Cr (6) COPD (chronic obstructive pulmonary disease): No shortness of breath or wheezing today. - Continue with home inhalers. - DuoNebs PRN (7) Hypertension: BP was 160/100 today. As high as 170/90. - Continue home amlodipine, but increase dose to 10 mg HS. - Hydralazine PRN (8) DVT prophylaxis: SCDs - Hold heparin for brain metastases and procedure on Friday Admission and Anticipated Discharge Date Admission Date: July 26, 2020 Subjective Doing fairly well today overall. He feels his right arm is stable to slightly improving. Reports no fevers/chills, chest pain, shortness of breath, abdominal pain, nausea, or vomiting. Physical Exam 2 Constitutional: WD/WN, vitals as above Eyes: EOM intact bilaterally; no conjunctival abnormality ENMT: external ear and nose normal, oropharynx normal Neck: trachea midline, no thyromegaly normal visual inspection Respiratory: normal respiratory effort, lungs clear to auscultation no respiratory distress Cardiovascular: RRR, no murmur, no edema Gastrointestinal (Abdomen): Inspection/Auscultation: abdomen normal to inspection; abdomen not distended Musculoskeletal: no cyanosis or clubbing, extremities motor strength 5/5 Skin: no rashes, warm and dry Neurologic: moves all extremities (Right arm limited) and awake Psychiatric: Orientation: alert, oriented to person and cooperative Results & Data Results & Data ([facility]) Vital Signs (Past 12 Hours) Vital Signs Temp Pulse Pulse Resp BP Pulse Ox 07/29/20 14:36 36.5 C 74 18 162/100 H 97 07/29/20 07:00 36.7 C 69 18 171/94 H 96 07/29/20 06:52 36.7 C 69 18 171/94 H 96 PG Care Time/CCT Total # of Minutes Spent Total Time Spent with Patient: Total time spent is greater than 50% in coordination of care (as documented) at patient's floor/unit and/or counseling patient: Coding Level of Care Code 66462 Subseq Hosp Care Lvl 3 Diagnoses Lung cancer C34.90 Brain lesion G93.9 Pulmonary lesion J98.4 Upper extremity weakness R29.898 Chronic kidney disease N18.4 Chronic kidney disease stage: stage 4 (severe) COPD (chronic obstructive pulmonary disease) J44.9 COPD type: unspecified COPD Hypertension I10 DVT prophylaxis Z29.9 (1) COPD (chronic obstructive pulmonary disease) COPD type: unspecified COPD Qualified Code(s): J44.9 - Chronic obstructive pulmonary disease, unspecified (2) Chronic kidney disease Chronic kidney disease stage: stage 4 (severe) Qualified Code(s): N18.4 - Chronic kidney disease, stage 4 (severe)
[2020-07-29] MEDS: ALBUTEROL HFA 8 GM INHALER INH PRN (18:23)
[2020-07-29] MEDS: ACETAMINOPHEN 325 MG TAB PO PRN (20:28)
[2020-07-29] MEDS: amLODIPine BESYLATE 5 MG TAB PO SCH (20:31)
[2020-07-29] MEDS: dexAMETHasone 4 MG TAB PO SCH (20:31)
[2020-07-30] MEDS: ACETAMINOPHEN 325 MG TAB PO PRN (00:17)
[2020-07-30] MEDS: SODIUM CHLORIDE 0.9% 1000ML 1,000 ML IV SCH (05:49)
[2020-07-30 06:27] LABS: Hematocrit (blood only) 31.7 % (42-52); Hemoglobin 10.4 g/dL (14.0-18.0); Mean Corpuscular Hemoglobin 30.3 pg (25-34); Mean Corpuscular Hgb Conc 32.8 g/dL (32-36); Mean Corpuscular Volume 92.4 fL (80-100); Mean Platelet Volume 9.3 fL (7.4-10.4); Platelet Count 212 K/uL (130-400); RDW Coefficient of Variation 15.2 % (11.5-14.5); RDW Standard Deviation 52.2 fL (36.4-46.3); Red Blood Count 3.43 M/uL (4.7-6.1); White Blood Count 9.42 K/uL (4.8-10.8)
[2020-07-30 06:59] LABS: BUN Creatinine Ratio 23.2 (10-20); Calcium 7.1 mg/dl (8.5-10.1); Creatinine Clr Calc Pharmacy 18.4 ml/min; Est GFR (African American) 21.9; Est GFR (Non-African American) 18.9; Magnesium 1.9 mg/dl (1.8-2.4)
[2020-07-30 08:05] LABS: Potassium 5.4 mmol/L (3.5-5.1)
[2020-07-30] MEDS: dexAMETHasone 4 MG TAB PO SCH ×3 (08:52→20:33)
--- NOTE | 2020-07-30 09:05 | Ultrasound Report ---
RENAL ULTRASOUND HISTORY: Acute kidney injury. COMPARISON: None. FINDINGS: Right kidney: 9.2 cm. No hydronephrosis. A 1.1 cm cyst. Diffusely echogenic cortex and trace perineph tiffanie fluid. Mild cortical thinning. Left kidney: 7.1 cm. No hydronephrosis. Diffusely echogenic cortex. Moderate cortical thinning. Bladder: Bilateral ureteral jets are identified. The bladder is mildly distended. Slightly trabeculat ed bladder wall. IMPRESSION: 1. No hydronephrosis. 2. Echogenic kidneys consistent with medical renal disease/chronic kidney disease. ACT 112: Negative or not required by law. Electronically signed by: Jeovanny Rao M.D. 07/30/2020 9:04 AM
[2020-07-30 09:55] LABS: Appearance Urine Clear (Clear); Bacteria Urine Automated Negative (Negative); Bilirubin Urine Negative (Negative); Blood Urine Negative (Negative); Color Urine Yellow; Glucose Urine UA Negative (Negative); Ketones Urine Negative (Negative); Leukocyte Esterase Urine Trace (Negative); Nitrite Urine Negative (Negative); Protein Urine Negative (Negative); RBC Urine Automated 0-4 /hpf (0-4); Specific Gravity Urine 1.014 (1.000-1.030); Urobilinogen Urine Negative (Negative); pH Urine 5.5 (4.5-7.5)
--- NOTE | 2020-07-30 10:42 | Nephrology Consultation ---
Date of Consultation July 30, 2020 Assessment & Plan (1) Acute kidney injury: 64 Y O M with stage IV CKD, baseline creatinine around 2.5, poorly controlled hypertension and history of smoking >60 PPD, admitted with right upper extremity weakness and found to have bronchogenic carcinoma with metastatic disease to brain, pending EUS and biopsy. On admission creatinine was 3.3 which has been relatively stable from 3.3-3.4, has multiple electrolyte abnormality. Renal ultrasound negative for postrenal obstruction. Has multiple electrolyte abnormalities including hyperkalemia and metabolic acidosis with MARY GRACE and advanced CKD. Mild change in creatinine from baseline however baseline creatinine has always been variable from high 2-2.8, concern for ANGIE, with history of significant atherosclerotic disease, smoking, hypertensive urgency and change in renal function -- check renal artery Doppler -- would discontinue IV fluid, has been on IV fluid for last few days, patient reports adequate p.o. intake, unlikely volume depletion, although BUN elevated which could be due to steroid -- Veltassa 1 dose now, continue to hold EMI inhibitor/ARB, low-potassium diet -- start on sodium bicarbonate 650 mg twice a day -- start on labetalol 200 mg twice a day, hydralazine 50 mg t.i.d. Will follow Thank you for allowing me to participate in your patient's care. 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 Attending Physician: Checo Chau MD History of Present Illness Dalton plummer is a 64-year-old gentlemen with past medical history significant for stage IIIB /4 CKD, hypertension, COPD admitted with right upper extremity weakness and possible metastatic lung carcinoma to brain. Nephrology consult was requested to manage acute kidney injury and electrolyte abnormality with underlying advanced CKD. Electronic medical records are reviewed in detail during patient's visit. Jeferson was admitted on 07/26/2020 with right-sided weakness. MRI brain showed 1.7 x 1.6 cm rim-enhancing mass within the posterior left frontal lobe and 7 mm metastasis within the anterior left frontal lobe consistent with metastatic disease with extensive associated vasogenic edema. CT chest w/o contrast showed irregular 2.7 x 2.2 cm nodule within the right lower lobe consistent with bronchogenic carcinoma as well as mediastinal and right hilar lymphadenopathy and severe emphysema. He was seen by pulmonology, Oncology and Radiation Oncology and scheduled for EUS and biopsy tomorrow. Blood pressure has been persistently elevated with history of poorly controlled hypertension. He reports more than 40 lb weight loss over last 1 year although appetite has been decent. Has stage 3B/4 CKD, b/l cr around 2.5, possibly secondary to renovascular disease with history of atherosclerotic disease, hypertension, long history of smoking and left atrophic kidney. On admission creatinine was 3.3 and has been relatively stable from 3.3-3.4. Has multiple electrolyte abnormalities including hyperkalemia and metabolic acidosis. Has been IV normal saline. Urinalysis in 2019 showed low grade proteinuria but no hematuria. Renal ultrasound showed for right kidney 9.2 and left kidney 7.1 cm with significant cortical atrophy. He was on Lisinopril 10 mg p.o. daily at home however he was not taking it. has not been on any potassium supplement. Has been voiding normally, no lower extremity edema. Denies taking NSAIDs at home. No f or/h of CKD, ESRD. History of smoking for many years. Has history of hypertension, was on amlodipine and lisinopril however he reports not taking medication regularly as she ran out of the medication and not sure what medication he was supposed to take. History of atherosclerotic disease, left lower extremity atherosclerotic disease requiring stent before. No known history of coronary artery disease or diabetes. Allergies Allergy/AdvReac Type Severity Reaction Status Date / Time No Known Allergies Allergy Unknown Verified 07/26/20 15:30 Home Medications Home Medications Medication Instructions Recorded Confirmed Type aspirin 81 mg PO QAM 02/03/19 07/26/20 History albuterol sulfate 2 puffs INH Q6H PRN #6.7 gm 02/08/19 07/26/20 Rx Serevent Diskus 1 puffs INH BID PRN 05/02/20 07/26/20 History amlodipine [Norvasc] 5 mg PO QPM #30 tab 05/05/20 07/26/20 Rx lisinopril 10 mg PO QAM #30 tab 05/05/20 07/26/20 Rx Patient History Medical History Back pain Chronic kidney disease Baseline creatinine appears to be around 1.9mg/dl COPD (chronic obstructive pulmonary disease) Hypertension Admitted 02/03/19-02/08/19 with COPD exacerbation, found to have HTN urgency. Started on amlodipine 5mg daily the however this was discontinued due to cost Palliative care encounter Pneumonia Secondary malignant neoplasm of brain Tobacco use disorder 60 pack year history (2ppd for decades). Precontemplative Vasogenic brain edema Surgical History S/P arterial stent Unknown date; right leg; unknown location Family History Father , age 79 of pulmonary issues Lung cancer Lung disease Mother , age 53 of cancer (uncertain type but maybe lung) Hypertension Cancer Other No significant family history Social History Tobacco Type: Cigarettes Years Smoked: 40; Second Hand Exposure: Yes; Hx Alcohol Use: No Hx Substance Use: No Preferred Language: Martiniquais Communication Ability: Effective Silo Tender Required: No Beliefs That Will Affect Care: None marital status: Single Current Living Situation: Significant Other current occupational status: retired 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 Feels Safe at Home: Yes Assistive Devices: Walker Review of Systems Review of Systems: All systems reviewed & are unremarkable except as noted in HPI & below Physical Exam Constitutional: WD/WN, vitals as above + ill appearing and + cachectic; no acute distress Eyes: PERRL, conjunctivae normal, anicteric sclerae ENMT: external ear and nose normal, oropharynx normal Ears: no hearing impairment Neck: trachea midline Respiratory: normal respiratory effort; no respiratory distress Auscultation: + rhonchi and + wheezes Cardiovascular: RRR, no murmur, no edema Gastrointestinal (Abdomen): normal bowel sounds, soft, nontender, no hepatosplenomegaly Percussion/Palpation: abdomen nontender, no guarding and abdomen not rigid Musculoskeletal: Extremities: extremities normal to inspection Gait: normal gait Skin: no rashes, warm and dry Neurologic: moves all extremities, + focal motor deficit (mild motor weakness in rt UE) and awake; not confused Psychiatric: A+Ox3, euthymic affect Results & Data (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
[2020-07-30] MEDS ORDERED: PATIROMER CALCIUM SORBITEX 8.4 GM PACK PO STA (11:00)
[2020-07-30] MEDS: LABETALOL HCL 200 MG TAB PO SCH ×2 (12:28→20:33)
[2020-07-30] MEDS: SODIUM BICARBONATE 650 MG TAB PO SCH ×2 (12:29→20:32)
[2020-07-30] MEDS: hydrALAZINE HCL 25 MG TAB PO SCH ×2 (13:51→20:32)
--- NOTE | 2020-07-30 14:09 | Hospitalist Progress Note ---
Date of Service July 30, 2020 Assessment & Plan (1) Lung cancer: Presumed diagnosis given lung lesion with brain mets. - Plan for EBUS tomorrow - Hold ASA until after procedure. Brain mets from lung cancer are not a high bleeding risk, so will restart. (2) Brain lesion: New brain lesions on brain MRI. Likely metastatic disease. - Radiation oncology consulted - Plan for outpatient radiation treatment. - Continue dexamethasone 4 mg PO Q8h (3) Pulmonary lesion: As seen on CT chest. - Biopsy as above (4) Upper extremity weakness: Due to brain lesion in left frontal lobe. CT cervical spine without any acute findings. - As above for treatment. (5) Chronic kidney disease: Baseline appears to be ~2.3 - 2.5; eGFR ~28, CKD Stage IV. - Presently Cr is up to 3.25. Likely pre-renal with elevated BUN. - Continue gentle IV fluids; no indication of volume overload. - Ordered UA, renal u/s, and nephrology consult given continued kidney failure despite IV fluids. - Nephrology recommended renal artery Doppler, Veltassa for high K+, start NaBicarb, and better BP control. (6) COPD (chronic obstructive pulmonary disease): No shortness of breath reported. Has mild wheeze today. - Continue with home inhalers. - DuoNebs PRN (7) Hypertension: BP was 160/100 today. As high as 170/90. - Continue home amlodipine, but increased dose to 10 mg HS on 07/29. - Started labetalol & hydralazine PO on 07/30 per nephrology. - Hydralazine PRN (8) DVT prophylaxis: SCDs - Hold heparin for brain metastases and procedure on Friday Admission and Anticipated Discharge Date Admission Date: July 26, 2020 Subjective Right arm without significant change today. Reports no fevers/chills, chest pain, shortness of breath, abdominal pain, nausea, or vomiting. Physical Exam Constitutional: WD/WN, vitals as above Eyes: EOM intact bilaterally; no conjunctival abnormality ENMT: external ear and nose normal, oropharynx normal Neck: trachea midline, no thyromegaly normal visual inspection Respiratory: no respiratory distress and no labored breathing Auscultation: + wheezes (Mild expiratory wheezes) Cardiovascular: RRR, no murmur, no edema Gastrointestinal (Abdomen): Inspection/Auscultation: abdomen normal to inspection; abdomen not distended Musculoskeletal: no cyanosis or clubbing, extremities motor strength 5/5 Skin: no rashes, warm and dry Neurologic: moves all extremities (Right arm limited) and awake Psychiatric: Orientation: alert, oriented to person and cooperative Results & Data Results & Data ([facility]) Vital Signs (Past 12 Hours) Vital Signs Temp Pulse Resp BP BP Pulse Ox 07/30/20 13:49 117/74 07/30/20 07:14 36.6 C 69 18 169/90 H 95 PG Care Time/CCT Total # of Minutes Spent Total Time Spent with Patient: Total time spent is greater than 50% in coordination of care (as documented) at patient's floor/unit and/or counseling patient: Coding Level of Care Code 00801 Subseq Hosp Care Lvl 3 Diagnoses Lung cancer C34.90 Brain lesion G93.9 Pulmonary lesion J98.4 Upper extremity weakness R29.898 Chronic kidney disease N18.4 Chronic kidney disease stage: stage 4 (severe) COPD (chronic obstructive pulmonary disease) J44.9 COPD type: unspecified COPD Hypertension I10 DVT prophylaxis Z29.9 (1) Chronic kidney disease Chronic kidney disease stage: stage 4 (severe) Qualified Code(s): N18.4 - Chronic kidney disease, stage 4 (severe) (2) COPD (chronic obstructive pulmonary disease) COPD type: unspecified COPD Qualified Code(s): J44.9 - Chronic obstructive pulmonary disease, unspecified
--- NOTE | 2020-07-30 14:13 | Pulmonology Progress Note ---
Date of Service July 30, 2020 Assessment & Plan (1) Pulmonary lesion: We will plan for bronchoscopy and biopsies of the mediastinal and hilar lymphadenopathy tomorrow at 8:00 in the morning. N.p.o. after midnight. Patient is not currently on anticoagulation. Smoking cessation encouraged. Currently on Decadron for vasogenic edema in the brain. Radiation/oncology and hematology/oncology consults have been placed and they are following. Patient can likely be discharged tomorrow after the procedure if there are no significant complications. I went over the risks and benefits of the procedure. Patient is agreeable. (2) Brain lesion: (3) Tobacco use disorder: (4) Vasogenic brain edema: Admission and Anticipated Discharge Date Admission Date: July 26, 2020 Subjective Patient's right arm strength is somewhat improved since hospital admission. He denies any significant cough, fevers or chills. He does have a mild wheeze. Review of Systems Review of Systems: All systems reviewed & are unremarkable except as noted in HPI & below Physical Exam Constitutional: + ill appearing and + cachectic Eyes: PERRL, conjunctivae normal, anicteric sclerae ENMT: external ear and nose normal, oropharynx normal Neck: normal visual inspection Respiratory: Mild expiratory wheeze and prolonged phase of exhalation Cardiovascular: RRR, no murmur, no edema Gastrointestinal (Abdomen): normal bowel sounds, soft, nontender, no hepato splenomegaly Musculoskeletal: no cyanosis or clubbing, extremities motor strength 5/5 Skin: no rashes, warm and dry Neurologic: CN's II-XI intact bilaterally Psychiatric: A+Ox3, euthymic affect Results & Data Results & Data ([facility]) Vital Signs (Past 12 Hours) Vital Signs Temp Pulse Resp BP BP Pulse Ox 07/30/20 13:49 117/74 07/30/20 07:14 97.9 F 69 18 169/90 H 95 I reviewed the vital signs, labs and imaging PG Care Time/CCT Total # of Minutes Spent Total Time Spent with Patient: Total time spent is greater than 50% in coordination of care (as documented) at patient's floor/unit and/or counseling patient: Coding Level of Care Code 52594 Subseq Hosp Care Lvl 2 Diagnoses Pulmonary lesion J98.4 Brain lesion G93.9 Tobacco use disorder F17.200 Vasogenic brain edema G93.6
[2020-07-30] MEDS: OLODATEROL HCL 2.5MCG/ACTUATION 60 PUFFS/INHALER INH PRN (20:26)
[2020-07-30] MEDS: amLODIPine BESYLATE 5 MG TAB PO SCH (20:33)
[2020-07-31 06:21] LABS: Hematocrit (blood only) 31.8 % (42-52); Hemoglobin 10.4 g/dL (14.0-18.0); Mean Corpuscular Hemoglobin 30.4 pg (25-34); Mean Corpuscular Hgb Conc 32.7 g/dL (32-36); Mean Platelet Volume 9.1 fL (7.4-10.4); Platelet Count 222 K/uL (130-400); RDW Coefficient of Variation 15.2 % (11.5-14.5); RDW Standard Deviation 52.1 fL (36.4-46.3); Red Blood Count 3.42 M/uL (4.7-6.1); White Blood Count 8.67 K/uL (4.8-10.8)
[2020-07-31 06:51] LABS: Albumin Level 2.5 gm/dl (3.4-5.0); BUN Creatinine Ratio 22.9 (10-20); Calcium 7.2 mg/dl (8.5-10.1); Creatinine Clr Calc Pharmacy 17.2 ml/min; Est GFR (African American) 20.2; Est GFR (Non-African American) 17.4; Potassium 5.3 mmol/L (3.5-5.1)
[2020-07-31 06:53] LABS: Phosphorus 4.1 mg/dl (2.5-4.9)
--- NOTE | 2020-07-31 07:20 | History & Physical Bridge Note ---
Date of Service July 31, 2020 History & Physical Bridge Note I have examined the patient, reviewed the History & Physical and in the interval since the performance of the History & Physical I have noted the following changes of clinical significance: no changes noted
--- NOTE | 2020-07-31 07:49 | Pre Anesthesia Assessment ---
Date of Service July 31, 2020 Pre Sedation Assessment Vital Signs Temp Pulse Pulse Resp BP BP Pulse Ox 07/31/20 07:35 97.3 F L 72 22 103/66 92 07/31/20 07:17 97.5 F L 74 18 134/87 90 07/30/20 20:25 75 142/76 H 07/30/20 15:01 97.9 F 78 16 129/72 96 07/30/20 13:49 117/74 Pre-Sedation Airway Assessment Hx Sleep Apnea: No Short, Thick Neck: No Thyromental Distance: > or= 3.5 Finger Breadths Oral Cavity: + WNL Mallampati Class: II ASA: ASA3 NPO Status Date of Last Intake of Fluids: 07/30/20 Time of Last Intake of Fluids: 23:00 Date of Last Intake of Solid Food: 07/30/20 Time of Last Intake of Solid Foods: 23:00 Notes The planned sedation has been discussed with the patient. Informed Consent was obtained. I have identified the patient, determined the appropriateness of sedation and have assessed the patient immediately prior to the procedure. All medicine(s) and interventions are by my order.
--- NOTE | 2020-07-31 08:26 | Progress Notes ---
DATE: 07/31/2020 MEDICAL ONCOLOGY PROGRESS NOTE DIAGNOSES: 1. Metastatic brain disease, probable lung primary. 2. Right upper extremity weakness attributable to brain metastasis. 3. Chronic obstructive pulmonary disease. 4. Chronic kidney disease. 5. Tobacco use disorder. SUBJECTIVE: Mr. Reyes is a pleasant 64-year-old gentleman I met via consultation a couple of days ago when he presented with a right upper extremity dysfunction and gait disturbance. CT scan of the brain confirmed metastatic brain disease. He was started on dexamethasone, which he continues to the present time. I assume radiation will continue planning stereotactic radiosurgery. Pulmonary is scheduled to perform the EBUS and formal biopsy today. Clinically, Mr. Reyes seems to be making slow improvement. He is tolerating his diet and right upper extremity is gaining strength. OBJECTIVE: GENERAL: A very pleasant 64-year-old gentleman in no acute distress. VITAL SIGNS: Temperature 36.3, pulse 72, respiratory rate 22, blood pressure 103/66. SKIN: Without rash or lesion. HEENT: Oral mucosa without erythema or ulceration. HEART: Regular rate and rhythm. LUNGS: Coarse rhonchi heard in all cavazos. ABDOMEN: Soft, nontender, nondistended. EXTREMITIES: No clubbing, cyanosis or edema. NEUROLOGIC: Again, his right upper extremity is showing signs of improvement. LABORATORY DATA: WBC count 8670, hemoglobin 10.4, platelet count 222,000. Sodium 137, potassium 5.3, chloride 113, creatinine 3.48, BUN 80, albumin 2.5. IMPRESSION: 1. Metastatic brain disease. 2. Pulmonary mass, suspected lung cancer. 3. Right upper extremity weakness, attributable to metastatic brain disease. 4. [id number] kidney disease. PLAN: If all goes well today, formal biopsy will be carried out. The patient will receive stereotactic radiosurgery in our radiation oncology department, I suspect, as an outpatient. Once a biopsy and formal diagnosis is made, we can plan for salvage chemotherapy. Again, I cannot emphasize enough to get adequate tissue for ROS1, ALK, EGFR, and PD-L1, which will certainly impact choice of salvage chemotherapy moving forward. From my standpoint, there is nothing further to add and we will plan to reconvene with Mr. Reyes on discharge. Thank you very much for allowing me to participate in his care.
[2020-07-31] MEDS ORDERED: LIDOCAINE HCL VISCOUS SOLN 2% 15 ML UDC MT ONE (08:27)
[2020-07-31] MEDS ORDERED: fentaNYL citrate 100 MCG/2 ML VIAL IV ONE (08:27)
--- NOTE | 2020-07-31 08:28 | Post Anesthesia Assessment ---
Date of Service July 31, 2020 Post Sedation Assessment Vital Signs Temp Pulse Pulse Pulse Resp BP BP 07/31/20 08:23 69 16 143/84 H 07/31/20 08:18 71 20 136/82 07/31/20 08:15 68 16 137/76 07/31/20 08:10 68 16 136/83 07/31/20 08:05 68 20 148/82 H 07/31/20 08:00 78 20 136/94 07/31/20 07:55 70 20 137/87 07/31/20 07:35 97.3 F L 72 22 103/66 07/31/20 07:17 97.5 F L 74 18 134/87 07/30/20 20:25 75 142/76 H 07/30/20 15:01 97.9 F 78 16 129/72 07/30/20 13:49 117/74 Pulse Ox 07/31/20 08:23 99 07/31/20 08:18 99 07/31/20 08:15 99 07/31/20 08:10 99 07/31/20 08:05 99 07/31/20 08:00 99 07/31/20 07:55 99 07/31/20 07:35 92 07/31/20 07:17 90 07/30/20 20:25 07/30/20 15:01 96 07/30/20 13:49 Recovery Score Activity: Moves 4 extremities Respiration: Deep Breath/Cough Circulation: +/-20% PreAnes Value Consciousness: Fully Awake Oxygen Saturation: O2 needed for >90% Post Anesthesia Score: 9 Discharge Sedation Level of Care: Fast Track Phase II Post Sedation Plan On clinical assessment, the patient appears to have tolerated the sedation without complications. Patient is recovering as anticipated. Patient will continue to be monitored by nursing and may be discharged when sedation discharge criteria are met per below protocol. Upon Completions of procedure up to 15 minutes continue every 5 minute vital signs and the P.A.R. score; then discharge to a Phase I or Fast Track to Phase II per the following guidelines: * Discharge Patient to appropriate Phase II area if PAR is 8 or greater or return to pre- procedure baseline. The post - procedure orders will be as directed. * If PAR score is less than 8 or not return to pre-procedure baseline then patient will follow Phase I monitoring till PAR is reached for Phase II. The Phase I may be done in procedure room or may call to secure a Phase I area. * If naloxone or flumazenil are used for reversal, hold in Phase I for continued monitoring from when last reversal dose was given for a minimum of 60 minutes or longer pending the nurse and/or physician discretion of patient condition before discharge to Phase II. Please call the Sedation Physician to re-evaluate and complete post-note for discharge to Phase II area. Do NOT discharge from procedure sedation or Phase 1 until post- sedation evaluation note is complete by procedure /sedation MD Sedation Discharge Instructions to be given to the patient at discharge to home.
[2020-07-31] MEDS ORDERED: LIDOCAINE 4% INH SOLN 4 ML BTL INH ONE (08:29)
[2020-07-31] MEDS ORDERED: MIDAZOLAM HCL 1 MG/ML 2ML VIAL IV ONE (08:29)
--- NOTE | 2020-07-31 08:32 | Procedure Note ---
Procedure Note Date of Service July 31, 2020 Note PREOPERATIVE DIAGNOSIS: Lung mass with hilar adenopathy and likely metastatic brain disease POSTOPERATIVE DIAGNOSIS: Likely adenocarcinoma of the lung with metastatic disease to the brain RAPID ON S[facility] POSITIVE [facility] NODES FOR MALIGNANCY INCLUDE: Station 4R PROCEDURES PERFORMED: Endobronchial ultrasound with transbronchial needle aspiraion PROCEDURALIST: David Shea MD COAGULATING OPERATOR: None. ANESTHESIA: Local regional using 1% lidocaine and conscious sedation as noted in the EMR and note INDICATIONS FOR PROCEDURE: The procedures were explained to the patient. All risks, benefits, and options were discussed. The risks include but were not limited to bleeding, infection, and pneumothorax. All questions were answered, and the patient wished for us to proceed with the procedure. DESCRIPTION OF PROCEDURE: The scope was inserted via the mouth. Trachea appeared saber-sheath in nature. Ladonna was sharp. There were thick white secretions emanating from the right and left mainstem bronchus. I turned my attention to station 4R lymph node. There was a large 2 to 3 cm lymph node noted there. We performed 5 biopsies of the area. First 3 samples appear to yield malignant tissue. Possibly adenocarcinoma. I then turned my attention to station 7 and 10 R. Station 10 R had a large lymph node present. Station 7 also had lymphadenopathy, but less malignant appearing. I did not biopsy either station as I felt that we had adequate tissue from station 4R. Adequate hemostasis was achieved. The scope was withdrawn. Patient did well with the procedure. Minimal blood loss. Start time for the procedure was 8 AM and end time was 8:23 AM. 50 mcg of fentanyl and 2 mg of Versed were used for the procedure. Coding CPT Codes Pulmonary/Thoracic - Pulmonary and Thoracic: 86338 Bronchoscopy, w/EBUS 1 or 2 mediastinal ([id number]) Sedation/Anesthesia - Sedation/Anesthesia: 78379 Mod Sedation by the same physician; Ea [id number] Minutes ([id number]) [facility] Procedure Codes (Charges) Pulmonary/Thoracic Procedure 1: Pulmonary and Thoracic: 93580 Bronchoscopy, w/EBUS 1 or 2 mediastinal Sedation/Anesthesia Procedure 2: Sedation/Anesthesia: 37189 Mod Sedation by the same physician; Ea [id number] Minutes Total Sedation Time (minutes): 23
--- NOTE | 2020-07-31 09:41 | Nephrology Progress Note ---
Date of Service July 31, 2020 Assessment & Plan (1) Acute kidney injury: 64 Y O M with stage IV CKD, baseline creatinine around 2.5, poorly controlled hypertension and history of smoking >60 PPD, admitted with right upper extremity weakness and found to have bronchogenic carcinoma with metastatic disease to brain. On admission creatinine was 3.3 which has been relatively stable from 3.3-3.4, has multiple electrolyte abnormality. Renal ultrasound negative for postrenal obstruction. Has multiple electrolyte abnormalities including hyperkalemia and metabolic acidosis with MARY GRACE and advanced CKD. Mild change in creatinine from baseline however baseline creatinine has always been variable from high 2-2.8, concern for ANGIE, with history of significant atherosclerotic disease, smoking, hypertensive urgency and change in renal function. EBUS done on 07/31/20. Renal artery Doppler was ordered but not done because of prior poor study with USG as pt was not able to hold breath. Renal function continues to worsen, with underlying advanced CKD, B/L echogenic and atrophic kidney. -- Veltassa 1 dose now, low K diet, encourage po intake. -- continue on sodium bicarbonate 650 mg twice a day -- labetalol 200 mg twice a day, hydralazine 25 mg t.i.d. -- left arm nephrology precaution --briefly discussed about potential need for CANE WEIGHER HELPER in next 24/48 h. Pt would like to have CANE WEIGHER HELPER if needed. 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 Just had EBUS this am. Denies any SOB, CP. BP improved. Renal function continues to worsen with multiple electrolyte abnormality. Review of Systems Review of Systems: All systems reviewed & are unremarkable except as noted in HPI & below Physical Exam Constitutional: WD/WN, vitals as above + ill appearing and + cachectic; no acute distress Respiratory: normal respiratory effort; no respiratory distress Auscultatio n: + rhonchi and + wheezes Cardiovascular: RRR, no murmur, no edema Gastrointestinal (Abdomen): normal bowel sounds, soft, nontender, no hepatosplenomegaly Percussion/Palpation: abdomen nontender, no guarding and abdomen not rigid Skin: no rashes, warm and dry Neurologic: moves all extremities, + focal motor deficit (mild motor weakness in rt UE) and awake; not confused Psychiatric: A+Ox3, euthymic affect Results & Data ([facility]) Vital Signs (Past 12 Hours) Vital Signs Temp Pulse Pulse Pulse Resp BP Pulse Ox 07/31/20 08:59 35.6 C L 70 18 135/80 100 07/31/20 08:38 68 16 150/86 H 99 07/31/20 08:33 68 16 147/82 H 99 07/31/20 08:28 67 16 146/84 H 99 07/31/20 08:23 69 16 143/84 H 99 07/31/20 08:18 71 20 136/82 99 07/31/20 08:15 68 16 137/76 99 07/31/20 08:10 68 16 136/83 99 07/31/20 08:05 68 20 148/82 H 99 07/31/20 08:00 78 20 136/94 99 07/31/20 07:55 70 20 137/87 99 07/31/20 07:35 36.3 C L 72 22 103/66 92 07/31/20 07:17 36.4 C L 74 18 134/87 90 PG Care Time/CCT Total # of Minutes Spent Total Time Spent with Patient: Total time spent is greater than 50% in coordi nation of care (as documented) at patient's floor/unit and/or counseling patient: Coding Level of Care Code 15745 Subseq Hosp Care Lvl 3 Diagnoses Acute kidney injury N17.9 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
[2020-07-31] MEDS ORDERED: PATIROMER CALCIUM SORBITEX 8.4 GM PACK PO ONE (09:50)
[2020-07-31] MEDS: SODIUM BICARBONATE 650 MG TAB PO SCH ×2 (10:16→20:15)
[2020-07-31] MEDS: LABETALOL HCL 200 MG TAB PO SCH ×2 (10:16→20:15)
[2020-07-31] MEDS: dexAMETHasone 4 MG TAB PO SCH ×3 (10:16→20:15)
[2020-07-31] MEDS: hydrALAZINE HCL 25 MG TAB PO SCH ×3 (10:17→20:15)
--- NOTE | 2020-07-31 16:26 | Hospitalist Progress Note ---
Date of Service July 31, 2020 Assessment & Plan (1) Lung cancer: Presumed diagnosis given lung lesion with brain mets. - EBUS today with Dr. Shea confirmed adenocarcinoma. - Hold ASA until after procedure. Brain mets from lung cancer are not a high bleeding risk, so will restart after. - Restart tomorrow. (2) Brain lesion: New brain lesions on brain MRI. Likely metastatic disease. - Radiation oncology consulted - Plan for outpatient radiation treatment. - Continue dexamethasone 4 mg PO Q8h (3) Pulmonary lesion: As seen on CT chest. - Biopsy as above (4) Upper extremity weakness: Due to brain lesion in left frontal lobe. CT cervical spine without any acute findings. - As above for treatment. (5) Chronic kidney disease: Baseline appears to be ~2.3 - 2.5; eGFR ~28, CKD Stage IV. - Presently Cr is up to 3.25. Likely pre-renal with elevated BUN. - Continue gentle IV fluids; no indication of volume overload. - Ordered UA, renal u/s, and nephrology consult given continued kidney failure despite IV fluids. - Nephrology recommended renal artery Doppler, Veltassa for high K+, start NaBicarb, and better BP control. - Stable today. (6) COPD (chronic obstructive pulmonary disease): No shortness of breath reported. Has mild wheeze today. - Continue with home inhalers. - DuoNebs PRN (7) Hypertension: BP was 160/100 today. As high as 170/90. - Continue home amlodipine, but increased dose to 10 mg HS on 07/29. - Started labetalol & hydralazine PO on 07/30 per nephrology. - Hydralazine PRN (8) DVT prophylaxis: SCDs - Hold heparin for brain metastases and procedure on Friday Admission and Anticipated Discharge Date Admission Date: July 26, 2020 Subjective No shortness of breath after the procedure. Feeling well overall. No acute concerns. Reports no fevers/chills, chest pain, shortness of breath, abdominal pain, nausea, or vomiting. Physical Exam Constitutional: WD/WN, vitals as above Eyes: EOM intact bilaterally; no conjunctival abnormality ENMT: external ear and nose normal, oropharynx normal Neck: trachea midline, no thyromegaly normal visual inspection Respiratory: normal respiratory effort, lungs clear to auscultation no respiratory distress and no labored breathing Auscultation: + wheezes (Mild expiratory wheezes) Cardiovascular: RRR, no murmur, no edema Gastrointestinal (Abdomen): Inspection/Auscultation: abdomen normal to inspection; abdomen not distended Musculoskeletal: no cyanosis or clubbing, extremities motor strength 5/5 Skin: no rashes, warm and dry Neurologic: moves all extremities (Right arm limited) and awake Psychiatric: Orientation: alert, oriented to person and cooperative Results & Data Results & Data ([facility]) Vital Signs (Past 12 Hours) Vital Signs Temp Pulse Pulse Pulse Resp BP BP 07/31/20 15:47 36.4 C L 58 L 18 138/76 07/31/20 13:01 74 07/31/20 10:18 67 151/81 H 07/31/20 08:59 35.6 C L 70 18 135/80 07/31/20 08:38 68 16 150/86 H 07/31/20 08:33 68 16 147/82 H 07/31/20 08:28 67 16 146/84 H 07/31/20 08:23 69 16 143/84 H 07/31/20 08:18 71 20 136/82 07/31/20 08:15 68 16 137/76 07/31/20 08:10 68 16 136/83 07/31/20 08:05 68 20 148/82 H 07/31/20 08:00 78 20 136/94 07/31/20 07:55 70 20 137/87 07/31/20 07:35 36.3 C L 72 22 103/66 07/31/20 07:17 36.4 C L 74 18 134/87 Pulse Ox 07/31/20 15:47 94 07/31/20 13:01 95 07/31/20 10:18 98 07/31/20 08:59 100 07/31/20 08:38 99 07/31/20 08:33 99 07/31/20 08:28 99 07/31/20 08:23 99 07/31/20 08:18 99 07/31/20 08:15 99 07/31/20 08:10 99 07/31/20 08:05 99 07/31/20 08:00 99 07/31/20 07:55 99 07/31/20 07:35 92 07/31/20 07:17 90 PG Care Time/CCT Total # of Minutes Spent Total Time Spent with Patient: Total time spent is greater than 50% in coordination of care (as documented) at patient's floor/unit and/or counseling patient: Coding Level of Care Code 79593 Subseq Hosp Care Lvl 2 Diagnoses Lung cancer C34.90 Brain lesion G93.9 Pulmonary lesion J98.4 Upper extremity weakness R29.898 Chronic kidney disease N18.4 Chronic kidney disease stage: stage 4 (severe) COPD (chronic obstructive pulmonary disease) J44.9 COPD type: unspecified COPD Hypertension I10 DVT prophylaxis Z29.9 (1) Chronic kidney disease Chronic kidney disease stage: stage 4 (severe) Qualified Code(s): N18.4 - Chronic kidney disease, stage 4 (severe) (2) COPD (chronic obstructive pulmonary disease) COPD type: unspecified COPD Qualified Code(s): J44.9 - Chronic obstructive pulmonary disease, unspecified
[2020-07-31] MEDS: amLODIPine BESYLATE 5 MG TAB PO SCH (20:15)
--- NOTE | 2020-08-01 07:45 | XRay Report ---
XR chest 1V portable HISTORY: Shortness of breath. COMPARISON: Chest 05/02/2020. FINDINGS: Emphysema. No pneumothorax. The heart is normal in size. Bilateral hilar prominence remains unchanged. Bibasilar interstitial thickening has slightly progressed. This most pronounced within th e left lung base. The upper lung zones remain clear. No evidence for pulmonary edema. No pleural effu sions. IMPRESSION: 1. Emphysema. 2. Bibasilar interstitial thickening has progressed and is most pronounced within the left lung base. This could represent vascular crowding from the emphysema or a developing pneumonia. Follow-up recom mended to ensure resolution. ACT 112: Negative or not required by law. Electronically signed by: Jeovanny Rao M.D. 08/01/2020 7:44 AM
[2020-08-01 08:19] LABS: Hematocrit (blood only) 31.9 % (42-52); Hemoglobin 10.5 g/dL (14.0-18.0); Mean Corpuscular Hemoglobin 30.4 pg (25-34); Mean Corpuscular Hgb Conc 32.9 g/dL (32-36); Mean Corpuscular Volume 92.5 fL (80-100); Mean Platelet Volume 9.5 fL (7.4-10.4); Platelet Count 228 K/uL (130-400); RDW Coefficient of Variation 15.2 % (11.5-14.5); RDW Standard Deviation 51.6 fL (36.4-46.3); Red Blood Count 3.45 M/uL (4.7-6.1); White Blood Count 10.05 K/uL (4.8-10.8)
[2020-08-01 08:44] LABS: Albumin Level 2.6 gm/dl (3.4-5.0); BUN Creatinine Ratio 25.3 (10-20); Calcium 7.9 mg/dl (8.5-10.1); Creatinine Clr Calc Pharmacy 16.9 ml/min; Est GFR (African American) 19.8; Est GFR (Non-African American) 17.1; Magnesium 1.8 mg/dl (1.8-2.4); Potassium 4.8 mmol/L (3.5-5.1)
[2020-08-01 08:48] LABS: Albumin Globulin Ratio 0.9 (0.9-2); Bilirubin,Total 0.2 mg/dl (0.2-1); Phosphorus 4.1 mg/dl (2.5-4.9); Total Protein 5.6 gm/dl (6.4-8.2)
[2020-08-01] MEDS: hydrALAZINE HCL 25 MG TAB PO SCH ×3 (09:03→20:22)
[2020-08-01] MEDS: dexAMETHasone 4 MG TAB PO SCH ×3 (09:03→20:23)
[2020-08-01] MEDS: LABETALOL HCL 200 MG TAB PO SCH ×2 (09:03→20:25)
[2020-08-01] MEDS: SODIUM BICARBONATE 650 MG TAB PO SCH ×2 (09:55→20:25)
--- NOTE | 2020-08-01 10:20 | Nephrology Progress Note ---
Date of Service August 01, 2020 Assessment & Plan (1) Acute kidney injury: 64 Y O M with stage IV CKD, b/l cr 2.5, poorly controlled hypertension and history of smoking >60 PPD, admitted with right upper extremity weakness and found to have bronchogenic carcinoma with metastatic disease to brain. On admission creatinine was 3.3 which has been relatively stable from 3.3-3.4, has multiple electrolyte abnormality. Renal ultrasound negative for postrenal obstruction. Has multiple electrolyte abnormalities including hyperkalemia and metabolic acidosis with MARY GRACE and advanced CKD. Mild change in creatinine from baseline however baseline creatinine has always been variable from high 2-2.8, concern for ANGIE, with history of significant atherosclerotic disease, smoking, hypertensive urgency and change in renal function. EBUS done on 07/31/20. Renal artery Doppler was ordered but not done because of prior poor study with USG as pt was not able to hold breath. Renal function continues to worsen, with underlying advanced CKD, B/L echogenic and atrophic kidney. BP improved. -- continue low K diet, encourage po intake. -- increase sodium bicarbonate to 1300 mg twice a day -- labetalol 200 mg twice a day, hydralazine 25 mg t.i.d. -- left arm nephrology precaution --briefly discussed about potential need for STEPDOWN NURSE in next 24/48 h. 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 . Denies any SOB, CP. BP improved. Renal function continues to worsen with multiple electrolyte abnormality. Review of Systems Review of Systems: All systems reviewed & are unremarkable except as noted in HPI & below Physical Exam Constitutional: WD/WN, vitals as above + ill appearing and + cachectic; no acute distress Respiratory: normal respiratory effort; no respiratory distress Auscultation: + rhonchi and + wheezes Cardiovascular: RRR, no murmur, no edema Skin: no rashes, warm and dry Neurologic: moves all extremities and + focal motor deficit (mild motor weakness in rt UE) Psychiatric: A+Ox3, euthymic affect Results & Data ([facility]) Vital Signs (Past 12 Hours) Vital Signs Temp Pulse Resp BP Pulse Ox 08/01/20 09:05 84 127/73 93 08/01/20 07:16 36.6 C 76 18 131/80 94 07/31/20 23:32 36.4 C L 75 18 101/62 94 PG Care Time/CCT Total # of Minutes Spent Total Time Spent with Patient: Total time spent is greater than 50% in coordination of care (as documented) at patient's floor/unit and/or counseling patient: Coding Level of Care Code 75258 Subseq Hosp Care Lvl 3 Diagnoses Acute kidney injury N17.9 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
--- NOTE | 2020-08-01 13:42 | Hospitalist Progress Note ---
Date of Service August 01, 2020 Assessment & Plan (1) Chronic kidney disease: Baseline appears to be ~2.3 - 2.5; eGFR ~28, CKD Stage IV. - Presently Cr is up to 3.25. Likely pre-renal with elevated BUN. - Continue gentle IV fluids; no indication of volume overload. - Ordered UA, renal u/s, and nephrology consult given continued kidney failure despite IV fluids. - Nephrology recommended Veltassa for high K+, started NaBicarb, and better BP control. - Slightly worse today, though K+ is stable. Nephrology is discussing possible HD with him if he is willing. (2) Lung cancer: Presumed diagnosis given lung lesion with brain mets. - EBUS today with Dr. Shea confirmed adenocarcinoma. - Held ASA until after procedure. Brain mets from lung cancer are not a high bleeding risk, so will restart after. - Restarted ASA. (3) Brain lesion: New brain lesions on brain MRI. Likely metastatic disease. - Radiation oncology consulted - Plan for outpatient radiation treatment. - Continue dexamethasone 4 mg PO Q8h (4) Pulmonary lesion: As seen on CT chest. - Biopsy as above (5) Upper extremity weakness: Due to brain lesion in left frontal lobe. CT cervical spine without any acute findings. - As above for treatment. (6) COPD (chronic obstructive pulmonary disease): No shortness of breath reported. Has mild wheeze today. - Continue with home inhalers. - DuoNebs PRN (7) Hypertension: BP was 160/100 today. As high as 170/90. - Continue home amlodipine, but increased dose to 10 mg HS on 07/29. - Started labetalol & hydralazine PO on 07/30 per nephrology. - Hydralazine PRN (8) DVT prophylaxis: Lovenox Admission and Anticipated Discharge Date Admission Date: July 26, 2020 Subjective No real change today. Feels right arm is stable. No breathing issues. Reports no fevers/chills, chest pain, shortness of breath, abdominal pain, nausea, or vomiting. Physical Exam Constitutional: WD/WN, vitals as above Eyes: EOM intact bilaterally; no conjunctival abnormality ENMT: external ear and nose normal, oropharynx normal Neck: trachea midline, no thyromegaly normal visual inspection Respiratory: normal respiratory effort, lungs clear to auscultation no respiratory distress and no labored breathing Auscultation: + wheezes (Mild expiratory wheezes) Cardiovascular: RRR, no murmur, no edema Gastrointestinal (Abdomen): Inspection/Auscultation: abdomen normal to inspection; abdomen not distended Musculoskeletal: no cyanosis or clubbing, extremities motor strength 5/5 Skin: no rashes, warm and dry Neurologic: moves all extremities (Right arm limited) and awake Psychiatric: Orientation: alert, oriented to person and cooperative Results & Data Results & Data ([facility]) Vital Signs (Past 12 Hours) Vital Signs Temp Pulse Resp BP Pulse Ox 08/01/20 09:05 84 127/73 93 08/01/20 07:16 36.6 C 76 18 131/80 94 PG Care Time/CCT Total # of Minutes Spent Total Time Spent with Patient: Total time spent is greater than 50% in coordination of care (as documented) at patient's floor/unit and/or counseling patient: Coding Level of Care Code 29470 Subseq Hosp Care Lvl 3 Diagnoses Chronic kidney disease N18.4 Chronic kidney disease stage: stage 4 (severe) Lung cancer C34.90 Brain lesion G93.9 Pulmonary lesion J98.4 Upper extremity weakness R29.898 COPD (chronic obstructive pulmonary disease) J44.9 COPD type: unspecified COPD Hypertension I10 DVT prophylaxis Z29.9 (1) Chronic kidney disease Chronic kidney disease stage: stage 4 (severe) Qualified Code(s): N18.4 - Chronic kidney disease, stage 4 (severe) (2) COPD (chronic obstructive pulmonary disease) COPD type: unspecified COPD Qualified Code(s): J44.9 - Chronic obstructive pulmonary disease, unspecified
[2020-08-01] MEDS: OLODATEROL HCL 2.5MCG/ACTUATION 60 PUFFS/INHALER INH PRN (13:52)
--- NOTE | 2020-08-01 15:57 | Pulmonology Progress Note ---
Date of Service August 01, 2020 Assessment & Plan (1) Pulmonary lesion: CT chest 07/26/2020: 2.7 x 2.2 cm nodule in the superior segment of the right lower lobe significant mediastinal as well as hilar lymphadenopathy. --Mediastinal adenopathy with mets to the brain Patient had EBUS done 07/31/2020 Preliminary diagnosis adenocarcinoma Follow-up final pathology and cytology. --COPD Continue with incruse Patient is already on steroids for metastatic lesion Plan: Follow-up pathology and cytology Oncology and radiation oncology already on board Overall prognosis of the patient is very grave. Palliative care is on consult No further recommendations from pulmonary perspective. Please recall if needed. Please note the above document was generated using voice recognition software. It may contain grammatical, syntax or spelling errors.Any formal questions or concerns about the content, text or information contained within the body of this dictation should be directly addressed to the provider for clarification. (2) Brain lesion: (3) Tobacco use disorder: (4) Vasogenic brain edema: Admission and Anticipated Discharge Date Admission Date: July 26, 2020 Subjective Patient seen and examined at bedside. No acute distress, no adverse events overnight. Patient had EBUS performed on 07/31/2020. At the time of examination patient denies any chest pain, no shortness of breath. He is denying any hemoptysis. No headache, no blurry vision. Review of Systems Review of Systems: All systems reviewed & are unremarkable except as noted in Subjective Physical Exam Physical Exam: Constitutional: No acute distress HEENT: EOMI, PERRLA Respiratory system: Decreased air entry bilaterally, positive wheezing appreciated bilaterally, inspiratory rhonchi on the left side, mild crackles bilaterally lower lobes CVS: S1-S2 positive, no murmurs or gallops Abdomen: Soft, nontender, nondistended, positive bowel sounds x4 Extremities: +2 pulses bilaterally radialis/ dorsalis pedis, no cyanosis, no edema Neuro: Awake alert oriented x3 Psych: Normal mood and affect G/U: No Callahan Skin: no rashes, warm and dry Lymphatic: no cervical or axillary lymphadenopathy Results & Data Results & Data ([facility]) Vital Signs (Past 12 Hours) Vital Signs Temp Pulse Resp BP Pulse Ox 08/01/20 15:27 36.6 C 79 16 136/73 95 08/01/20 09:05 84 127/73 93 08/01/20 07:16 36.6 C 76 18 131/80 94 08/01/20 07:34 08/01/20 07:34 PG Care Time/CCT Total # of Minutes Spent Total Time Spent with Patient: Total time spent is greater than 50% in coordination of care (as documented) at patient's floor/unit and/or counseling patient: Coding Level of Care Code 24852 Subseq Hosp Care Lvl 2 Diagnoses Pulmonary lesion J98.4 Brain lesion G93.9 Tobacco use disorder F17.200 Vasogenic brain edema G93.6
[2020-08-01] MEDS: UMECLIDINIUM BROMIDE 62.5MCG/BLISTER 7 PUFFS/INHALER INH SCH (18:21)
[2020-08-01] MEDS: HEPARIN SOD 5,000 UNIT/0.5 ML VIAL SQ SCH (20:23)
[2020-08-01] MEDS: amLODIPine BESYLATE 5 MG TAB PO SCH (20:25)
[2020-08-02 07:36] LABS: Hematocrit (blood only) 30.5 % (42-52); Hemoglobin 10.1 g/dL (14.0-18.0); Mean Corpuscular Hemoglobin 30.5 pg (25-34); Mean Corpuscular Hgb Conc 33.1 g/dL (32-36); Mean Corpuscular Volume 92.1 fL (80-100); Mean Platelet Volume 9.3 fL (7.4-10.4); Platelet Count 222 K/uL (130-400); RDW Coefficient of Variation 15.1 % (11.5-14.5); Red Blood Count 3.31 M/uL (4.7-6.1)
[2020-08-02 07:57] LABS: Albumin Level 2.4 gm/dl (3.4-5.0); BUN Creatinine Ratio 25.3 (10-20); Calcium 7.3 mg/dl (8.5-10.1); Creatinine Clr Calc Pharmacy 16.4 ml/min; Est GFR (Non-African American) 16.4; Magnesium 1.8 mg/dl (1.8-2.4); Phosphorus 3.9 mg/dl (2.5-4.9); Potassium 4.5 mmol/L (3.5-5.1)
[2020-08-02] MEDS: SODIUM BICARBONATE 650 MG TAB PO SCH ×2 (09:12→20:36)
[2020-08-02] MEDS: dexAMETHasone 4 MG TAB PO SCH ×3 (09:13→20:36)
[2020-08-02] MEDS: LABETALOL HCL 200 MG TAB PO SCH ×2 (09:13→20:36)
[2020-08-02] MEDS: ASPIRIN 81 MG ECTAB PO SCH (09:13)
[2020-08-02] MEDS: UMECLIDINIUM BROMIDE 62.5MCG/BLISTER 7 PUFFS/INHALER INH SCH (09:14)
[2020-08-02] MEDS: hydrALAZINE HCL 25 MG TAB PO SCH ×3 (09:14→20:36)
[2020-08-02] MEDS: HEPARIN SOD 5,000 UNIT/0.5 ML VIAL SQ SCH ×2 (09:14→20:35)
[2020-08-02] MEDS: SODIUM CHLORIDE 0.9% 1000ML 1,000 ML IV SCH ×2 (10:31→20:43)
--- NOTE | 2020-08-02 10:31 | Palliative Care Progress Note ---
Date of Service August 02, 2020 Assessment & Plan (1) Palliative care encounter: Spoke with patient in room 381. Dr. Polanco from Nephrology at the bedside as well. Patient renal function is worsening. Creatinine 3.65 and overall GFR is 16.4. We rediscussed the grave nature of his illness. Oncology and radiation oncology has evaluated the patient and offered salvage therapy and radiation. He expressed that he knows this is not able to be cured and knows "his time is limited". We discussed at length complications associated with hemodialysis, including the physical toll. He is not sure he wants to pursue dialysis and said he "knows it wont fix things". We talked about hospice and its benefits. His girlfriends relatives had hospice services in the past and it apparently was not a good experience. He is willing to talk with a hospice liason regarding its benefits. We talked about his code status as he is a Full Code. We talked about the challenges with intubation related to his illness. He is fully understanding and willing to be a DNR/DNI. This has been changed in the computer to reflect the change. He said that he will make a decision regarding dialysis after he speaks with his girlfriend. He did not want us to reach out to her. Palliative Care will continue to follow this individual tomorrow. (2) Upper extremity weakness: Improved with steroids, likely further improvement with Radiation therapy. He does have increased movement and less tingling in this hand. He would want this to continue to improve prior to transitioning to a hospice approach. Admission and Anticipated Discharge Date Admission Date: July 26, 2020 Tamy Govea was seen and examined this morning. . Denies any SOB, CP. BP improved. Renal function continues to worsen with multiple electrolyte abnormality. Review of Systems Review of Systems: [place] Symptom Assessment Scale Pain 0/3 Dyspnea 1/3 Nausea 0/3 Anxiety 1/3 Drowsiness 0/3 Palliative Performance Score 40% Physical Exam Constitutional: comfortable; no acute distress Respiratory: normal respiratory effort; no labored breathing Psychiatric: Orientation: alert and oriented x 3 Affect: euthymic affect Results & Data ([facility]) Vital Signs (Past 12 Hours) Vital Signs Temp Pulse Pulse Resp BP BP Pulse Ox 08/02/20 07:27 36.5 C 71 16 121/74 92 08/01/20 23:40 36.5 C 77 18 104/69 94 PG Care Time/CCT Total # of Minutes Spent Total Time Spent with Patient: Total time spent is greater than 50% in coordination of care (as documented) at patient's floor/unit and/or counseling patient: 45 Coding Level of Care Code 34508 Subseq Hosp Care Lvl 3 Diagnoses Palliative care encounter Z51.5 Upper extremity weakness R29.898 Time Spent (min) 45 Time Spent Midlevel Total time spent 45 mintues with > 50% of that time spent assessing the patient, discussing goals of care including dialysis and code status, and collaborating with IDT as well.
--- NOTE | 2020-08-02 12:07 | Nephrology Progress Note ---
Date of Service August 02, 2020 Assessment & Plan (1) Acute kidney injury: 64 Y O M with stage IV CKD, b/l cr 2.5, poorly controlled hypertension and history of smoking >60 PPD, admitted with right upper extremity weakness and found to have bronchogenic carcinoma with metastatic disease to brain. On admission creatinine was 3.3 which has been relatively stable from 3.3-3.4, has multiple electrolyte abnormality. Renal ultrasound negative for postrenal obstruction. Has multiple electrolyte abnormalities including hyperkalemia and metabolic acidosis with MARY GRACE and advanced CKD. Mild change in creatinine from baseline however baseline creatinine has always been variable from high 2-2.8, concern for ANGIE, with history of significant atherosclerotic disease, smoking, hypertensive urgency and change in renal function. EBUS done on 07/31/20. Renal artery Doppler was ordered but not done because of prior poor study with [facility] as pt was not able to hold breath. Renal function continues to worsen, with underlying advanced CKD, B/L echogenic and atrophic kidney. BP improved. -- Start on normal saline at 80 mL/hour, continue to encourage increased p.o. intake -- continue low K diet -- increase sodium bicarbonate to 1300 mg twice a day -- labetalol 200 mg twice a day, hydralazine 25 mg t.i.d. -- left arm nephrology precaution -- had detailed discussion this morning about goals of care and potential need for dialysis. Although initially patient was agreeable to have dialysis however he is having 2nd thoughts about it considering his underlying metastatic lung cancer. With his overall health dialysis can become trouble some and may prolonged his life but not provide any meaningful quality of life. he is leaning towards hospice care and would like to know more about it which definitely seems to be a reasonable approach. appreciate help from palliative care with ongoing discussion about goals of care. 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 Overall he is feeling about the same, denies any specific symptoms, although denies any shortness of breath or chest pain. p.o. intake has been decent. voiding normally. However, renal function continues to worsen slowly with persistent metabolic acidosis. Review of Systems Review of Systems: All systems reviewed & are unremarkable except as noted in Subjective Physical Exam Constitutional: WD/WN, vitals as above + ill appearing and + cachectic; no acute distress Respiratory: normal respiratory effort; no respiratory distress Auscultation: + rhonchi and + wheezes Cardiovascular: RRR, no murmur, no edema Skin: no rashes, warm and dry Neurologic: + focal motor deficit; not confused Psychiatric: Orientation: oriented x 3 Affect: + depressed affect and + tearful affect Results & Data ([facility]) Vital Signs (Past 12 Hours) Vital Signs Temp Pulse Resp BP Pulse Ox 08/02/20 07:27 36.5 C 71 16 121/74 92 PG Care Time/CCT Total # of Minutes Spent Total Time Spent with Patient: Total time spent is greater than 50% in coordination of care (as documented) at patient's floor/unit and/or counseling patient: Coding Level of Care Code 34147 Subseq Hosp Care Lvl 3 Diagnoses Acute kidney injury N17.9 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
[2020-08-02] MEDS: amLODIPine BESYLATE 5 MG TAB PO SCH (20:36)
--- NOTE | 2020-08-02 22:55 | Hospitalist Progress Note ---
Date of Service August 02, 2020 Assessment & Plan (1) Chronic kidney disease: Baseline appears to be ~2.3 - 2.5; eGFR ~28, CKD Stage IV. - Presently Cr is up to 3.25. Likely pre-renal with elevated BUN. - Continue gentle IV fluids; no indication of volume overload. - Ordered UA, renal u/s, and nephrology consult given continued kidney failure despite IV fluids. - Nephrology recommended Veltassa for high K+, started NaBicarb, and better BP control. - Slightly worse today, though K+ is stable. Nephrology is discussing possible HD with him if he is willing. May consider starting tomorrow. D/W palliative care. (2) Lung cancer: Presumed diagnosis given lung lesion with brain mets. - EBUS today with Dr. Shea confirmed adenocarcinoma. - Held ASA until after procedure. Brain mets from lung cancer are not a high bleeding risk, so will restart after. - Restarted ASA. (3) Brain lesion: New brain lesions on brain MRI. Likely metastatic disease. - Radiation oncology consulted - Plan for outpatient radiation treatment. - Continue dexamethasone 4 mg PO Q8h (4) Pulmonary lesion: As seen on CT chest. - Biopsy as above (5) Upper extremity weakness: Due to brain lesion in left frontal lobe. CT cervical spine without any acute findings. - As above for treatment. (6) COPD (chronic obstructive pulmonary disease): No shortness of breath reported. Has mild wheeze today. - Continue with home inhalers. - DuoNebs PRN (7) Hypertension: BP was 160/100 today. As high as 170/90. - Continue home amlodipine, but increased dose to 10 mg HS on 07/29. - Started labetalol & hydralazine PO on 07/30 per nephrology. - Hydralazine PRN (8) DVT prophylaxis: Lovenox Admission and Anticipated Discharge Date Admission Date: July 26, 2020 Subjective Patient reports no new symptoms today. Still undecided on if he would like to go the hospice route. However, he reports he changed his code status to DNR/DNI today. Review of Systems Review of Systems: All systems reviewed & are unremarkable except as noted in HPI & below Physical Exam Physical Exam: Constitutional: WD/WN, vitals as above Eyes: EOM intact bilaterally; no conjunctival abnormality ENMT: external ear and nose normal, oropharynx normal Neck: trachea midline, no thyromegaly normal visual inspection Respiratory: normal respiratory effort, lungs clear to auscultation no respiratory distress and no labored breathing Auscultation: + wheezes (Mild expiratory wheezes) Cardiovascular: RRR, no murmur, no edema Gastrointestinal (Abdomen): Inspection/Auscultation: abdomen normal to inspection; abdomen not distended Musculoskeletal: no cyanosis or clubbing, extremities motor strength 5/5 Skin: no rashes, warm and dry Neurologic: moves all extremities (Right arm limited) and awake Psychiatric: Orientation: alert, oriented to person and cooperative Results & Data Results & Data ([facility]) Vital Signs (Past 12 Hours) Vital Signs Temp Pulse Pulse Resp BP Pulse Ox 08/02/20 20:33 81 18 128/76 94 08/02/20 16:00 36.5 C 76 20 139/75 95 PG Care Time/CCT Total # of Minutes Spent Total Time Spent with Patient: Total time spent is greater than 50% in coordination of care (as documented) at patient's floor/unit and/or counseling patient: Coding Level of Care Code 85295 Subseq Hosp Care Lvl 3 Diagnoses Chronic kidney disease N18.4 Chronic kidney disease stage: stage 4 (severe) Lung cancer C34.90 Brain lesion G93.9 Pulmonary lesion J98.4 Upper extremity weakness R29.898 COPD (chronic obstructive pulmonary disease) J44.9 COPD type: unspecified COPD Hypertension I10 DVT prophylaxis Z29.9 Time Spent (min) 37 Comment chart review (1) Chronic kidney disease Chronic kidney disease stage: stage 4 (severe) Qualified Code(s): N18.4 - Chronic kidney disease, stage 4 (severe) (2) COPD (chronic obstructive pulmonary disease) COPD type: unspecified COPD Qualified Code(s): J44.9 - Chronic obstructive pulmonary disease, unspecified
[2020-08-02] MEDS: OLODATEROL HCL 2.5MCG/ACTUATION 60 PUFFS/INHALER INH PRN (23:51)
[2020-08-03] MEDS: UMECLIDINIUM BROMIDE 62.5MCG/BLISTER 7 PUFFS/INHALER INH SCH (07:36)
[2020-08-03] MEDS: OLODATEROL HCL 2.5MCG/ACTUATION 60 PUFFS/INHALER INH PRN (07:36)
[2020-08-03] MEDS: HEPARIN SOD 5,000 UNIT/0.5 ML VIAL SQ SCH (07:37)
[2020-08-03] MEDS: ASPIRIN 81 MG ECTAB PO SCH (07:37)
[2020-08-03] MEDS: SODIUM BICARBONATE 650 MG TAB PO SCH (07:37)
[2020-08-03] MEDS: LABETALOL HCL 200 MG TAB PO SCH (07:37)
[2020-08-03] MEDS: hydrALAZINE HCL 25 MG TAB PO SCH ×2 (07:37→14:55)
[2020-08-03] MEDS: dexAMETHasone 4 MG TAB PO SCH ×2 (07:37→14:55)
[2020-08-03 08:44] LABS: Albumin Level 2.4 gm/dl (3.4-5.0); BUN Creatinine Ratio 27.5 (10-20); Calcium 7.4 mg/dl (8.5-10.1); Creatinine Clr Calc Pharmacy 17.2 ml/min; Est GFR (African American) 20.3; Est GFR (Non-African American) 17.5; Phosphorus 4.1 mg/dl (2.5-4.9); Potassium 4.8 mmol/L (3.5-5.1)
[2020-08-03] MEDS: SODIUM CHLORIDE 0.9% 1000ML 1,000 ML IV SCH (09:37)
--- NOTE | 2020-08-03 10:43 | Nephrology Progress Note ---
Date of Service August 03, 2020 Assessment & Plan (1) Acute kidney injury: 64 Y O M with stage IV CKD, b/l cr 2.5, poorly controlled hypertension and history of smoking >60 PPD, admitted with right upper extremity weakness and found to have bronchogenic carcinoma with metastatic disease to brain. On admission creatinine was 3.3 which has been relatively stable from 3.3-3.4, has multiple electrolyte abnormality. Renal ultrasound negative for postrenal obstruction. Has multiple electrolyte abnormalities including hyperkalemia and metabolic acidosis with MARY GRACE and advanced CKD. Mild change in creatinine from baseline however baseline creatinine has always been variable from high 2-2.8, concern for ANGIE, with history of significant atherosclerotic disease, smoking, hypertensive urgency and change in renal function. EBUS done on 07/31/20. Renal artery Doppler was ordered but not done because of prior poor study with [facility] as pt was not able to hold breath. Renal function continues to worsen, with underlying advanced CKD, B/L echogenic and atrophic kidney. BP improved. Pt decided not to consider any treatment and go home with hospice. -- continue sodium bicarbonate to 1300 mg twice a day -- labetalol 200 mg twice a day, hydralazine 25 mg t.i.d. Will sign off. 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 Overall he is feeling about the same, denies any specific symptoms,. voiding normally. Renal function remained low with persistent metabolic acidosis. BP fair. Review of Systems Review of Systems: All systems reviewed & are unremarkable except as noted in Subjective Physical Exam Constitutional: WD/WN, vitals as above + ill appearing and + cachectic; no acute distress Respiratory: normal respiratory effort, lungs clear to auscultation normal respiratory effort; no respiratory distress Auscultation: + rhonchi and + wheezes Cardiovascular: RRR, no murmur, no edema Gastrointestinal (Abdomen): normal bowel sounds, soft, nontender, no hepatosplenomegaly Percussion/Palpation: abdomen nontender, no guarding and abdomen not rigid Skin: no rashes, warm and dry Neurologic: moves all extremities and + focal motor deficit; not confused Psychiatric: A+Ox3, euthymic affect Orientation: oriented x 3 Affect: + depressed affect and + tearful affect Results & Data ([facility]) Vital Signs (Past 12 Hours) Vital Signs Temp Pulse Pulse Resp BP Pulse Ox 08/03/20 07:41 36.3 C L 70 20 131/81 94 08/02/20 23:50 36.4 C L 76 20 100/62 92 PG Care Time/CCT Total # of Minutes Spent Total Time Spent with Patient: Total time spent is greater than 50% in coordination of care (as documented) at patient's floor/unit and/or counseling patient: Coding Level of Care Code 43425 Subseq Hosp Care Lvl 2 Diagnoses Acute kidney injury N17.9 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
== END 2020-08-03 16:36 | disposition hospice, home (50) | DRG 40 ==
LOC: ED 13:04 → 3N 17:29 → SUATTDRO 17:29 → 3N 18:54